=== PATIENT | male | born 1960 | race Caucasian/White ===

== ENCOUNTER 2019-06-08 13:42 | Inpatient (IN) | payer OTHER ==
[~2019-06-08] VITALS: Ht 177.8 cm; Wt 80.7 kg
[2019-06-08 13:43] VITALS: BP 149/83
[2019-06-08 14:19] LABS: ABSOLUTE NEUTROPHILS 12.9 thou/uL (1.4-8.2); BASOPHILS 0.2 % (0.0-2.0); EOSINOPHILS 1.3 % (0.0-3.0); HEMATOCRIT 32.9 % (42.0-52.0); HEMOGLOBIN 11.8 gm/dL (14.0-18.0); LYMPHOCYTES 5.9 % (24.0-44.0); MCH 31.5 pg (26.0-34.0); MCHC 35.8 g/dL (28.0-37.0); MCV 87.9 fL (80.0-100.0); MONOCYTES 6.8 % (1.0-8.0); PLATELET COUNT 187 thou/uL (150-400); POLYS 85.8 % (36.0-66.0); RBC 3.74 mil/uL (4.50-6.00)
[2019-06-08 14:27] LABS: CALCIUM 8.7 mg/dL (8.5-10.1); CREATININE 0.7 mg/dL (0.7-1.3); POTASSIUM 4.2 mmol/L (3.5-5.1)
[2019-06-08 14:33] LABS: ALBUMIN 2.7 g/dL (3.4-5.0); TOTAL BILIRUBIN 1.8 mg/dL (<0.1-1.0); TOTAL PROTEIN 8.1 g/dL (6.4-8.2)
[2019-06-08] MEDS ORDERED: LIPITOR10 MG PO (15:33)
[2019-06-08] MEDS ORDERED: LISINOPRIL20 MG PO (15:34)
[2019-06-08] MEDS ORDERED: GLIPIZIDE 10 MG10 MG PO (15:34)
[2019-06-08] MEDS ORDERED: INDERAL 20 MG T20 M1 PO (15:34)
[2019-06-08] MEDS ORDERED: LEVEMIR FL100 UNIT/2 SUBQ (15:35)
[2019-06-08] MEDS ORDERED: ASPIR 8181 MG PO (15:35)
[2019-06-08 15:41] LABS: CHOLESTEROL 105 mg/dL (<200); HDL CHOLESTEROL 40 mg/dL (>40); LDL CHOLESTEROL 53 mg/dL (<100); TC:HDL 2.6 Ratio (Not establshd); TRIGLYCERIDE 63 mg/dL (<150); VLDL 13 mg/dL (<40)
[2019-06-08 15:48] VITALS: BP 126/67
[2019-06-08 15:53] VITALS: BP 123/73
--- NOTE | 2019-06-08 16:03 | NUR ---
ROOM IS DIRTY; VERONICA TYSON, IS IN A ROOM GIVING MEDS; WILL CALL ME BACK FOR REPORT
--- NOTE | 2019-06-08 16:36 | NUR ---
ROOM CHANGED FROM 353 TO 218
[2019-06-08 17:35] VITALS: BP 98/50
--- NOTE | 2019-06-08 18:15 | NUR ---
ASSUMED CARE OF PT AT 1730 THIS SHIFT. PT HAS BEEN COOPERATIVE, HAS HAD SOME PAIN BUT MUCH BETTER AFTER RECIEVING PAIN PILL IN ER. PT IS A NEW ADMIT FROM ER, HERE FOR WORSENING DIABETIC ULCER ON LLE. PT HAS CONSULTS FOR ORTHOPEDIC SURGERY AND ENDOCRINOLOGY. PT IS CURRENTLY RESTING COMFORTABLY IN ROOM. PT HAS NO VISITORS, EDUCATION WAS PROVIDED. PLAN OF CARE IS TO MONITOR PT CLOSELY AT THIS TIME.
[2019-06-08 20:01] VITALS: BP 100/50
[2019-06-09 00:04] VITALS: BP 104/58
[2019-06-09 04:30] VITALS: BP 108/57
--- NOTE | 2019-06-09 04:36 | NUR ---
PT RESTING IN BED CURRENTLY. SR ON MONITOR. PT HAS BEEN NPO SINCE MIDNIGHT IN CASE SX SEES PT AND DECIDES TO TAKE HIM FOR SX TODAY ON LEFT 2ND TOE D/T DIABETIC ULCER. PT REMAINS ON RA. WILL HAVE ARTERIAL DOPPLER TODAY. PAIN HAS BEEN CONTROLLED TONIGHT WITH PAIN PILL. ABLE TO AMBULATE WITH MINIMAL DIFFICULTY.
[2019-06-09 07:46] LABS: URINE BILIRUBIN NEGATIVE (Negative); URINE BLOOD TRACE (Negative); URINE CLARITY CLEAR; URINE COLOR YELLOW; URINE GLUCOSE-RANDOM* NEGATIVE (Negative); URINE KETONES TRACE (Negative); URINE LEUKOCYTES-REFLEX NEGATIVE (Negative); URINE NITRITE-REFLEX NEGATIVE (Negative); URINE PROTEIN (DIPSTICK) TRACE (Negative)
[2019-06-09 08:04] VITALS: BP 126/63
--- NOTE | 2019-06-09 09:35 | NUR ---
REPORT RECEIVED FROM RN IN INTERVENTIONAL CARDIOLOGY. RECEIVED IN BED WITH IAN INTACT ACCOMPANIED BY RN AND 2 PATRICE. CHEST DISCOMFORT, DIZZINESS RESOLVED. SR-60'S.
[2019-06-09 13:31] VITALS: BP 132/74
--- NOTE | 2019-06-09 15:56 | NUR ---
L LOWER EXTREMITY RED, SWOLLEN, WARM, NUMBNESS WITH WOUND ON 2ND L TOE, ELEVATED ON PILLOW. DENIES PAIN. HEEL TOUCH WEIGHT BEARING WHEN AMBULATES TO BATHROOM WITH MINIMAL ASSIST. CALLED ORTHOPEDIC'S OFFICE TO CONFIRM CONSULT. REPORT GIVEN TO VERONICA NOLASCO. PT TRANSFERRING TO ROOM 432 MED/SURG PER WHEELCHAIR WITH VOLUNTEER ASSISTANCE.
--- NOTE | 2019-06-09 16:19 | NUR ---
volunteer present, pt transferring per wheelchair.
[2019-06-09 16:44] VITALS: BP 134/78
--- NOTE | 2019-06-09 19:26 | NUR ---
PT RECEIVED FROM CCU AT 1700 TO 432 ALERT AND IN NO ACUTE DISTRESS. PT SETTLED IN BED. LT LEG ELEVATED. NO C/O PAIN. IV INFUSING. DR. ONEAL CONSULTED TO SEE PT RE POSSIBLE AMPUTATION. EATING AND DRINKING WELL. VOIDING PER TOILET.
[2019-06-10 03:06] LABS: GLYCOHEMOGLOBIN (HGB A1C) 8.5 % (4.8-5.6)
[2019-06-10 05:45] VITALS: BP 120/57
--- NOTE | 2019-06-10 06:24 | NUR ---
Assumed pt care at 1900. Pt A/OX4,pleasant,VSS. Up with SBA/IV pole. Denies pain on assessment. saw pt at beginning of shift awaiting MRI results to proceed with POC on pt. consulted and saw pt as well,ordered wound cx of toe but wound is not draining it's open to air with maceration on the base of it and a blister on the posterior part. Pt was transferred to [facility]. Pt resting with no distress noted,calls approp. IVF infusing without problems.
[2019-06-10 09:00] VITALS: BP 129/72
--- NOTE | 2019-06-10 15:49 | NUR ---
Case opened to follow for dc planning. Pt is a&ox4 and indicates that his son lives with him. He has a close friend and neighbor Cecelia who is his emergency contact. He is considering making her his dpoa for health care. Document/info provided. The pt reports that he is on disability due his liver chrosis. He normally sees GI and [facility]ERT[facility] in the [facility]. He would like to find a doctor near here so that it is closer to home for him. He does drive and reports 4 steps into the house then everything is on level. MRI positive for osteo of his left toe. He is anticipating surgery for amputation tomorrow. He is indep with gait and adl's. Cm role introduced. Will follow along and reassess for dc planning needs postop.
[2019-06-10 16:37] VITALS: BP 106/46
[2019-06-10 19:06] VITALS: BP 126/66
--- NOTE | 2019-06-10 22:39 | NUR ---
PATIENT ALERT AND ORIENTED AND FAMILY AT BEDSIDE. PATIENT HAD MRI AND LATER SPOKE WITH SURGEON REGARDING SURGERY IN THE MORNING. PATIENT AGREED TO SURGERY ON FOOT AND STATED HE WOULD BE COMPLIANT WITH POC. NPO AT MIDNIGHT. SURGERY SCHEDULED AT 0730.
[2019-06-11 04:03] VITALS: BP 136/66
--- NOTE | 2019-06-11 05:06 | NUR ---
Assume dpt care at 1900. A/OX4,VSS. C/o pain on left foot,medicated per EMAR with relief reported. Pt aware of procedure today and consent signed. Pt has been NPO since midnight. IVF infusing without problems. Will continue to monitor pt.
--- NOTE | 2019-06-11 08:26 | HC ---
[facility] [address] CONSULTATION Name: ROEL GIPSON Room #: [facility] ADM IN M.R.#: [id number] Admission: 06/08/19 ������������������ Attend Phys: Rhett Capps Discharge: ������������������ Date of : 58 Report #: [id number] THIS REPORT FOR: //name// CC: JUS physician/PCP Rhett Capps DATE OF SERVICE: 06/10/2019 CHIEF COMPLAINT: Osteomyelitis, left second toe. HISTORY OF PRESENT ILLNESS: This 58-year-old gentleman with chronic diabetes and peripheral vascular disease has had problems with both feet for some time. He states he is being treated for diabetes and is on insulin, but only sees that physician once every 6 months. He has had progressive problems with a sore on the left second toe for some time. This has become more severe and he now presents with evidence of osteomyelitis and a draining wound. Clinical exam and MRI study confirm evidence of osteomyelitis involving the second toe, extending down possibly to the metatarsal head. There is evidence of reactive osteitis of the adjacent first and third digits as well. The MRI does not reveal evidence of an abscess nor significant fluid collection. At the time of my evaluation, he is a poor historian and clearly has not taken good care of his feet in the past. He does seem to understand the situation and we have had a thorough and lengthy discussion both last evening and again today. He denies any other areas of significant discomfort. The left foot is somewhat red and slightly boggy, consistent with some chronic vascular dysfunction. He has poor pulses. The third toe demonstrates a slightly draining ulcer at the tip with some generalized edema consistent with chronic infection. The first and third toes are slightly edematous, but without clear evidence of infection. The skin is slightly macerated between the digits. There is no evidence of abscess or significant fluid collection. Sensation is adequate. X-rays and MRI study of the left foot reveal evidence of osteomyelitis involving the second toe. The MRI suggests some involvement back to the metatarsal head. There is no fluid collection. There is no evidence of clear osteomyelitis or bony destruction in other digits. IMPRESSION: Severe peripheral vascular disease and diabetes with osteomyelitis, left second toe. I have explained to the patient very directly that I am concerned that he may have difficulty healing this given his poor metabolic state and his poor compliance with medical management in the past. I think amputation at the base of the second toe has a possibility of healing, but there is certainly no guarantee. Therefore, I have discussed with him the option of a mid foot amputation or even eventual below-knee amputation. He states he understands, but prefers to preserve as much of the foot as possible. He appreciates that he may not succeed in healing at this level, but would like to try an amputation involving the second digit only at this point. He understands that he will probably require ongoing antibiotics and wound care for the coming [address] [address] CONSULTATION Name: ROEL GIPSON Room #: 417-I ADM IN M.R.#: [id number] Admission: 06/08/19 ������������������ Attend Phys: Rhett Capps Discharge: ������������������ Date of : 58 Report #: [id number] month or two in an effort to get this to heal. If it fails, then he will probably need to reconsider the option of either mid foot or below-knee amputation level. He states he understands this very well, but at this point refuses mid foot or below-knee amputation level and wants to proceed with amputation of the left second toe only. We will plan to proceed with that tomorrow if OR scheduling will allow. ��������������������������������������������� <ELECTRONICALLY SIGNED> ���������������������������������������� By: Fercho Guerra MD ��������������������������������������������� 06/11/19 0826 1729 0259 Fercho Guerra MD /nt
--- NOTE | 2019-06-11 08:26 | O ---
[facility] [place] [address] OPERATIVE REPORT Name: ROEL GIPSON [facility].R.[facility] [id number] Admission: 06/08/19 ������������������ Attend Phys: Rhett Capps Discharge: ������������������ Date of : 58 Report #: [id number] THIS REPORT FOR: //name// CC: FAM physician/PCP Rhett Capps DATE OF SERVICE: 06/11/2019 PREOPERATIVE DIAGNOSIS: Infected left second toe. POSTOPERATIVE DIAGNOSIS: Infected left second toe. PROCEDURE: Amputation of left second toe. SURGEON: Fercho Guerra MD INDICATIONS: This 58-year-old gentleman has diabetes and peripheral vascular disease. He has developed edema, cellulitis and infected left second toe. We have discussed that his edema and some generalized cellulitis may make healing at the forefoot level difficult. We have discussed possible mid foot or even below-knee amputation. At this point, however, his MRI does not show an abscess in the foot and he would prefer to preserve as much of the foot as possible. We have elected to go ahead with amputation of the second toe at the distal metatarsal level. DESCRIPTION OF PROCEDURE: The patient was taken to the operating room where he was placed under general anesthesia. He has been continued on his previous antibiotics. The left foot was meticulously prepped and draped. An Esmarch bandage was used as a gentle tourniquet. A racquet shaped skin incision was made involving the base of the second toe, preserving as much skin and soft tissue as possible. This was carried sharply down to bone and a subperiosteal dissection was performed back to the MP joint. The toe was amputated at that level. There was evidence of some fluid and purulence at the MP joint and his previous MRI suggested involvement with osteomyelitis at the metatarsal head. The bony dissection was carried back another 2 cm to the mid metatarsal where it was transected sharply and removed as well. The surrounding soft tissues were debrided of any necrotic appearing tissue. Wound was copiously irrigated. There seems to be satisfactory local blood supply. I considered a very loose wound closure, but felt the better approach is probably to pack this wound open and allow wound care to manage over the coming week or two, probably with secondary or late closure of the wound. A sterile dressing was applied. The [address] [address] OPERATIVE REPORT Name: GIPSON,ROEL Room #: 417-I ADM IN M.R.#: [id number] Admission: 06/08/19 ������������������ Attend Phys: Rhett Capps Discharge: ������������������ Date of : 58 Report #: [id number] patient was then awakened and returned to recovery room in satisfactory condition. ��������������������������������������������� <ELECTRONICALLY SIGNED> ���������������������������������������� By: Fercho Guerra MD ��������������������������������������������� 06/11/19 0826 0809 0822 Fercho Guerra MD /nt
[2019-06-11 09:36] VITALS: BP 127/66
[2019-06-11 10:00] VITALS: BP 132/70
[2019-06-11 10:10] LABS: ABSOLUTE NEUTROPHILS 7.7 thou/uL (1.4-8.2); BASOPHILS 0.3 % (0.0-2.0); EOSINOPHILS 1.9 % (0.0-3.0); HEMATOCRIT 31.1 % (42.0-52.0); HEMOGLOBIN 10.9 gm/dL (14.0-18.0); LYMPHOCYTES 6.2 % (24.0-44.0); MCH 31.6 pg (26.0-34.0); MCV 90.3 fL (80.0-100.0); MONOCYTES 3.7 % (1.0-8.0); PLATELET COUNT 178 thou/uL (150-400); POLYS 87.9 % (36.0-66.0); RBC 3.44 mil/uL (4.50-6.00); RDW 14.2 % (10.5-14.5); WBC 8.8 thou/uL (4.0-11.0)
[2019-06-11 10:29] LABS: CALCIUM 8.1 mg/dL (8.5-10.1); CREATININE 0.7 mg/dL (0.7-1.3); POTASSIUM 3.9 mmol/L (3.5-5.1)
[2019-06-11 11:00] VITALS: BP 130/69
--- NOTE | 2019-06-11 12:06 | HC ---
[facility] [place] [address] [place] [address] CONSULTATION Name: ROEL GIPSON Room #: [facility] ADM IN M.R.#: [id number] Admission: 06/08/19 ������������������ Attend Phys: Rhett Capps Discharge: ������������������ Date of : 58 Report #: [id number] THIS REPORT FOR: //name// CC: FAM physician/PCP Rhett Capps DATE OF SERVICE: 06/09/2019 CONSULTING PHYSICIAN: Dr. Capps. REASON FOR CONSULTATION: Uncontrolled type 2 diabetes mellitus. HISTORY OF PRESENT ILLNESS: This is a 58-year-old male patient whose medical background is significant for type 2 diabetes mellitus, hypertension, hyperlipidemia. He notes that he has been diagnosed with type 2 diabetes mellitus, nearly 20 years ago. He is currently on a combination of Levemir insulin 40 units q.p.m. as well as glipizide 10 mg daily. He notes that his blood glucose values range between 120 and 150 mg/dL in the fasting state, but he does not check it in the postprandial state. He has not had significant issues with hypoglycemia. The patient is not aware of complications pertaining to diabetic retinopathy, diabetic neuropathy, diabetic nephropathy, or coronary artery disease. The patient presented here with progressive difficulties involving a left second toe swelling, redness, pain and was admitted for further management of what was diagnosed as a left foot cellulitis, primarily involving the second toe. Otherwise, the patient has hypertension, hyperlipidemia and is in on active medical therapy for both. REVIEW OF SYSTEMS: CONSTITUTIONAL: Intermittent issues with fatigue, tiredness, but not weight changes or fever. PULMONARY: No shortness of breath, cough or hemoptysis. CARDIAC: Occasional palpitations, dyspnea on exertion, but no chest pain, syncope or presyncope. HEENT: Negative for earache, ear drainage, sinus pain. SKIN: Negative for rash, ulceration other than the left second toe redness, swelling and pain. NEUROLOGY: Negative for loss of consciousness, headaches or seizure activity. PSYCHIATRIC: Negative for hallucinations, delusions. GASTROINTESTINAL: Negative for abdominal pain, nausea, vomiting or changes in bowel movement frequency. Otherwise, his review of systems is noncontributory other than those mentioned in HPI. [facility] [address] [place] [address] CONSULTATION Name: ROEL GIPSON Room #: 417-I [facility] IN M.R.#: [id number] Admission: 06/08/19 ������������������ Attend Phys: Rhett Capps Discharge: ������������������ Date of : 58 Report #: [id number] PAST MEDICAL HISTORY: 1. Type 2 diabetes mellitus. 2. Hypertension. 3. Hyperlipidemia. 4. Left foot cellulitis. 5. Liver cirrhosis. 6. History of hepatitis C. ACTIVE MEDICATIONS: Levemir insulin 40 units q.p.m., glipizide 10 mg b.i.d., aspirin 81 mg daily, lisinopril 20 mg daily, propranolol 20 mg b.i.d. and atorvastatin 10 mg daily. ALLERGIES: No known drug allergies. PAST SURGICAL HISTORY: Unremarkable. FAMILY HISTORY: Noted for hypertension. SOCIAL HISTORY: He is not . He has one son. He is on disability due to cirrhosis. Denies use of tobacco or alcohol. PHYSICAL EXAMINATION: GENERAL: Pleasant middle-aged male patient who is not in apparent pain or distress. VITAL SIGNS: Blood pressure is 126/63 mmHg, heart rate is 89 beats per minute, respirations 16 per minute, temperature 36.7 degrees. CONSTITUTIONAL: Comfortable, not in apparent distress. HEENT: Anicteric sclerae. Intact extraocular motions. NECK: Supple. No JVD, carotid bruits or lymphadenopathy. I do not appreciate thyromegaly. CHEST: Clear to auscultation with good air entry bilaterally. Scattered rales, but no wheezes. CARDIOVASCULAR: Regular rate and rhythm without murmurs or gallops. ABDOMEN: Slightly distended, but soft, nontender, no guarding, no organomegaly. Active bowel sounds. EXTREMITIES: Lowe extremity examination is negative for ankle edema, but is noted for extensive necrotic hyperemic changes involving the left second toe. No active discharge is noted. Pedal pulses are faint over both feet. SKIN: Noted for ulcerative changes involving the left second toe as noted above. NEUROLOGIC: Awake, alert and oriented to time, place and person. The remainder of examination is nonfocal. PSYCHIATRIC: Pleasant, interactive, appropriate. Normal mood and affect. LABORATORY DATA: Blood glucose values since arrival have ranged between 180 and 230 mg/dL. Otherwise, sodium 131, potassium 4.2, chloride 96, CO2 of 24, anion [address] [address] CONSULTATION Name: ROEL GIPSON Room #: 417-I ADM IN M.R.#: [id number] Admission: 06/08/19 ������������������ Attend Phys: Rhett Capps Discharge: ������������������ Date of : 58 Report #: [id number] gap 11, BUN 11, creatinine 0.7, AST 44, total bilirubin 1.8, calcium 8.7, alkaline phosphatase 183, ALT 41, total protein 8.1, albumin 2.7, GFR 115, lactic acid 2.0. Total cholesterol 105, triglycerides 63, HDL 40, LDL 53. White blood count 15, hemoglobin 11.8, hematocrit 32.9, platelets 187. TSH 2.332. Hemoglobin A1c was ordered and is pending. ASSESSMENT AND PLAN: Type 2 diabetes mellitus, uncontrolled. As noted above, the patient has had a longstanding history of type 2 diabetes mellitus and although he states no complications, the occurrence of left foot wound and infection speak to the possibility of peripheral vascular disease. I counseled the patient on the importance of adequate glycemic control in the inpatient than outpatient setting to avoid future complications and to speed up the recovery from the current episode, which he seems to understand well. Currently, the patient is on coverage with Humalog supplemental scale as well as blood glucose monitoring a.c. and at bedtime and glipizide 10 mg q.a.m. I will go ahead and resume coverage with long-acting insulin, but I will do so slowly and cautiously given the patient's hospitalized state in the form of providing Lantus insulin at a dose of 14 units q.p.m. and I will maintain the rest of his regimen unchanged. Further changes will be made according to his accumulating blood glucose data as well as his pending hemoglobin A1c. Hypertension. The patient's level of blood pressure control is adequate on current lisinopril regimen. He is to continue with that. Hyperlipidemia. The patient's lipid control is excellent on the current atorvastatin therapy, he is to continue with that. I certainly appreciate this consultation by Dr. Capps. ��������������������������������������������� <ELECTRONICALLY SIGNED> ���������������������������������������� By: Cameron Alejandre MD ��������������������������������������������� 06/11/19 1206 0958 1054 Cameron Alejandre MD /nt
[2019-06-11 15:47] VITALS: BP 136/72
--- NOTE | 2019-06-11 18:30 | NUR ---
PT IN SURGERY AT START OF SHIFT. RETURNED TO ROOM AT O920. LT FOOT BUMPER DSNG INTACT. SOME BLOODY DRAINAGE NOTED ATFTER PT SAT ON SIDE OF BED TO EAT LUNCH. INSTRUCTED PT NOT TO DANGLE BUT KEEP ELEVATED SO NOT TO HAVE FURTHER BLEEDING. EATING AND DRINKING WELL. ACCUCKS HIGH. SEE MED SHEET. NO C/O PAIN.
[2019-06-11 20:15] VITALS: BP 122/66
[2019-06-12 00:33] VITALS: BP 114/67
--- NOTE | 2019-06-12 02:40 | NUR ---
PATIENT ALERT AND ORIENTED X4. DENIES PAIN. DRESSING ON L FOOT INTACT. SCANT AMOUNT OF DRIED BLOOD ON DRESSING WHERE TOE WAS AMPUTATED. IV PATENT. SLEPT MOST OF NIGHT. ACCUCHECK WAS 332, RECEIVED 16 UNITS LISPRO INSULIN.
[2019-06-12 04:45] VITALS: BP 132/74
[2019-06-12 05:33] LABS: CREATININE 0.8 mg/dL (0.7-1.3); POTASSIUM 3.8 mmol/L (3.5-5.1)
[2019-06-12 05:47] LABS: HEMATOCRIT 28.7 % (42.0-52.0); HEMOGLOBIN 10.2 gm/dL (14.0-18.0); MCH 31.9 pg (26.0-34.0); MCHC 35.6 g/dL (28.0-37.0); MCV 89.6 fL (80.0-100.0); RBC 3.2 mil/uL (4.50-6.00); RDW 14.2 % (10.5-14.5); WBC 9.2 thou/uL (4.0-11.0)
[2019-06-12 08:00] VITALS: BP 131/69
--- NOTE | 2019-06-12 08:48 | NUR ---
PATIENT RESTING IN BED. STATES NO PAIN AT PRESENT. GAVE AM MEDS. AND INSULIN ORDERED.
--- NOTE | 2019-06-12 09:03 | HC ---
[facility] [place] [address] CONSULTATION Name: ROEL GIPSON Room #: [facility] ADM IN .R.#: [id number] Admission: 06/08/19 ������������������ Attend Phys: Rhett Capps Discharge: ������������������ Date of : 58 Report #: [id number] THIS REPORT FOR: //name// CC: FAM physician/PCP Rhett Capps DATE OF SERVICE: 06/11/2019 CHIEF COMPLAINT: Left second toe amputation site. HISTORY OF PRESENT ILLNESS: This is a 58-year-old male patient who was admitted to the hospital on 06/08/2019, after coming to the Emergency Department with pain, swelling and ulceration of his left foot. He was noted to have osteomyelitis of the second digit and metatarsal head and has subsequently undergone a surgical resection of the second toe and a portion of the metatarsal by Dr. Fercho Guerra, and Dr. Guerra has asked that I see him for postoperative wound care going forward. PAST MEDICAL HISTORY: Positive for history of diabetes mellitus as well as hepatic cirrhosis. SOCIAL HISTORY: Negative for alcohol or tobacco use per his record. MEDICATIONS: Include Lipitor, Inderal, Zestril, Levemir, Glucotrol and aspirin. ALLERGIES: No known drug allergies. FAMILY HISTORY: Noncontributory. REVIEW OF SYSTEMS: CONSTITUTIONAL: The patient denies fever, chills or weight loss. NEUROLOGICAL: The patient denies focal weakness, numbness or tingling. EYES: The patient denies visual changes, redness or drainage. ENT: The patient denies earache, nasal drainage or sore throat. CARDIOVASCULAR: The patient denies chest pain, palpitations or diaphoresis. PULMONARY: The patient denies cough or shortness of breath. GASTROINTESTINAL: The patient denies nausea, vomiting, diarrhea or abdominal pain. ORTHOPEDIC: The patient is aware of the foot surgical wound. He denies significant pain associated with that. Other systems in a 14-point review of systems are negative. PHYSICAL EXAMINATION: VITAL SIGNS: At this time include temperature 36.5, pulse 71, respiratory rate 18, blood pressure 136/72. GENERAL: This is a chronically ill-appearing male patient who appears to be in [address] [address] CONSULTATION Name: ROEL GIPSON Room #: 417-I ADM IN .R.#: [id number] Admission: 06/08/19 ������������������ Attend Phys: Rhett Capps Discharge: ������������������ Date of : 58 Report #: [id number] minimal distress. HEENT: Head normocephalic. Nose and throat clear. NECK: Supple. LUNGS: Clear. ABDOMEN: Slightly distended, nontender. EXTREMITIES: Lower extremities demonstrate what appear to be diminished distal pulses. He has a surgically absent second toe with a surgical wound in the interdigital webspace packed with Betadine-soaked gauze. The packing is left in place at this time as he is immediately postop. NEUROLOGIC: The patient is alert and oriented. LABORATORY STUDIES: Include white blood cell count 8.8, which is down from 15.0 on admission with a hemoglobin of 10.9, hematocrit of 31.1, platelet count 178,000. Sodium 135, potassium 3.9, chloride 104, CO2 of 21, BUN 10, creatinine 0.7, glucose elevated at 222. CLINICAL IMPRESSION: 1. Diabetic foot ulceration, Melgoza grade 3, with underlying osteomyelitis of the left second toe. Now, status post surgical amputation of the second toe and resection of the metatarsal head. 2. Surgical wound to the ____ foot following surgical removal of the second toe. 3. Type 2 diabetes mellitus. Uncontrolled with a baseline hemoglobin A1c of 8.5%. 4. Hypertension. 5. Hyperlipidemia. 6. Osteomyelitis, left second toe, now status post surgical excision of infected bone. RECOMMENDATIONS: At this point in time, we will leave the surgical packing in place today. Likely start with either a silver alginate dressing or a moist gauze dressing beginning tomorrow. Recommend continuation of empiric antibiotic therapy, pending cultures. He is being seen by Endocrinology for management of his hyperglycemia. He was felt by the surgeon to have adequate vascularity clinically at the time of surgery. Arterial Doppler failed to demonstrate any hemodynamically significant stenoses. I appreciate being asked to see the patient in consultation. ��������������������������������������������� <ELECTRONICALLY SIGNED> ���������������������������������������� By: Sanjiv Witt MD ��������������������������������������������� 06/12/19 0903 1555 0117 Sanjiv Witt MD /nt
--- NOTE | 2019-06-12 14:39 | NUR ---
TX TO LEFT 2ND TOE WITH DAKINS ORDERED. DR ESCOTO HERE ON UNIT AND LOOKED AT WHEN IT WAS UNWRAPPED. PT UP IN BEDSIDE CHAIR AND BED STRIPPED AND REMADE.
--- NOTE | 2019-06-12 14:49 | HC ---
[facility] [place] [address] CONSULTATION Name: ROEL GIPSON Room #: [facility] ADM IN M.R.#: [id number] Admission: 06/08/19 ������������������ Attend Phys: Rhett Capps Discharge: ������������������ Date of : 58 Report #: [id number] THIS REPORT FOR: //name// CC: JUS physician/PCP Rhett Capps DATE OF SERVICE: 06/09/2019 INFECTIOUS DISEASE CONSULTATION REASON FOR CONSULTATION: Evaluate left second toe diabetic foot infection. HISTORY OF PRESENT ILLNESS: The patient is a 58-year-old, longstanding diabetic with peripheral neuropathy, hypertension, who is on insulin and glipizide. About a month ago, noticed an ulceration on the distal aspect of his second left toe, treated at [facility]. He did show signs of improvement and finished his course of antibiotics several weeks ago. He then developed increased swelling and redness of his foot. No documented fever. He does have some pain in the foot. He has had no specific trauma, although, he does have peripheral neuropathy. He did not lose his toenail. No other foot issues have occurred. The patient does have underlying hepatitis C and cirrhosis. He does have esophageal varices. He has ascites. He has been managed at [facility]. His hepatitis C has been treated. Following his admission, he had ultrasound of the lower extremity arterials, which was without high-grade stenosis. REVIEW OF SYSTEMS: Denies any cardiopulmonary, GI or issues. Full 10-point review was negative other than what is described above. PAST MEDICAL HISTORY: Diabetes, hypertension, hyperlipidemia, cirrhosis, hepatitis C. ALLERGIES: None known. MEDICATIONS: As noted on his MAR, which were reviewed including vancomycin and Zosyn. FAMILY HISTORY: Hypertension. SOCIAL HISTORY: He is single, on disability, nonsmoker. No significant alcohol intake. PHYSICAL EXAMINATION: VITAL SIGNS: He is afebrile and hemodynamically stable. GENERAL: He is alert and cooperative and pleasant, in no acute distress. SKIN: With venous stasis dermatitis changes anterior legs bilaterally. He had [facility] [address] [place] [address] CONSULTATION Name: GIPSONROEL Room #: [facility] ADM IN M.R.#: [id number] Admission: 06/08/19 ������������������ Attend Phys: Rhett Capps Discharge: ������������������ Date of : 58 Report #: [id number] ulceration at the distal aspect of his left second toe with purulent drainage. Sausage deformity. Erythema extended up his forefoot with blistering to the plantar aspect of the base of his toe and forefoot. There was 2+ edema in the foot. Pulses were diminished, but palpable. He had a left groin node palpable. No other palpable adenopathy. EYES: Without scleral icterus. MOUTH: Without mucositis. NECK: Supple. LUNGS: Clear. HEART: Regular, without murmur, gallop or rub. ABDOMEN: With small amount of ascites. No definite hepatosplenomegaly identified. No other masses. GENITOURINARY: External genitalia without lesion. EXTREMITIES: Pulses in the femoral region were normal. Popliteal pulses normal. NEUROLOGIC: Cranial nerves intact. Strength in his upper and lower extremities is normal and symmetric. Mood was normal with no anxiety or depression. LABORATORY STUDIES: Arterial studies as noted above. X-ray showed osteomyelitis of the distal phalanx tuft. Blood cultures are negative to date. Urinalysis unremarkable. Creatinine 0.7, bilirubin 1.8, alkaline phosphatase 183, ALT 41. Hemoglobin 11.8, WBC 15, and platelet 187,000. IMPRESSION: 1. A 58-year-old diabetic with diabetic neuropathic ulcer over the distal aspect of his left second toe with secondary soft tissue infection and osteomyelitis. Underlying peripheral neuropathy due to his diabetes with no large vessel obstruction seen on ultrasound. 2. Osteomyelitis of the distal phalanx. He has gangrene changes that extend up to the distal forefoot. RECOMMENDATIONS: We will continue broad antibiotic coverage. Await cultures at the time of surgery. The patient will require amputation. Orthopedic Surgery has been consulted. We will continue antibiotic support. Culture of the distal phalanx and adjust antibiotics accordingly. ��������������������������������������������� <ELECTRONICALLY SIGNED> ���������������������������������������� By: Kan Berrios MD ��������������������������������������������� 06/12/19 1449 [id number] Kan Berrios MD /nt
[2019-06-12 15:35] VITALS: BP 131/69
--- NOTE | 2019-06-12 15:37 | NUR ---
CARE TEAM INDICATED THAT PT MAY BE MEDICALLY STABLE TO DC OVER THE WEEKEND SATURDAY OR SATURDAY. REFERRAL HAD BEEN SENT TO [facility] FOR PT, OT, AND NURSING (WOUND CARE). FAX ORDERS TO CALL . CM TO FOLLOW INDICATED WITH DC PLANNING.
[2019-06-12 16:20] VITALS: BP 135/83
[2019-06-12 19:50] VITALS: BP 125/68
--- NOTE | 2019-06-12 20:03 | NUR ---
GAVE SCED LANTUS INSULIN AND GAVE SNACK
--- NOTE | 2019-06-13 03:14 | NUR ---
PATIENT ALERT AND ORIENTED X4. DRESSING CHANGED ON L FOOT. WOUND HAS GOOD GRANULATION TISSUE. ACCUCHECK WAS 122, NO INSULIN COVERAGE. UP TO BATHROOM BY SELF, HAS STEADY GATE. DENIES PAIN.SLEPT MOST OF NIGHT.
[2019-06-13 04:00] VITALS: BP 144/50
[2019-06-13 06:29] LABS: HEMATOCRIT 31.4 % (42.0-52.0); MCH 31.5 pg (26.0-34.0); MCV 90.2 fL (80.0-100.0); RBC 3.48 mil/uL (4.50-6.00); RDW 14.5 % (10.5-14.5); WBC 7.6 thou/uL (4.0-11.0)
[2019-06-13 06:42] LABS: CALCIUM 8.1 mg/dL (8.5-10.1); CREATININE 0.8 mg/dL (0.7-1.3); POTASSIUM 3.7 mmol/L (3.5-5.1)
[2019-06-13 07:44] VITALS: BP 144/75
[2019-06-13 16:41] VITALS: BP 121/65
--- NOTE | 2019-06-13 19:20 | NUR ---
PT ALERT XS [address] ADLS[address] MOSS HERE AND ORDERED US OF ABD AND TESTICLES TO BE DONE 06/14/19 NPO AT MIDNIGHT. BLOOD SUGARS MONITORED AND S/S ORDERED. SEE NEW ORDERS. PT PLEASANT AND COOPERATIVE WITH CARE.
[2019-06-13 21:20] VITALS: BP 152/90
--- NOTE | 2019-06-14 03:04 | NUR ---
ASSESSMENT COMPLETED.PT DENIED PAIN SO FAR.UP ADLIB IN ROOM.DRSG ON HIS TOE COMPLETED.PT'S ABD DISTENDED AND FIRM,SCROTUM STILL SWOLLEN.PT NPO AT THIS TIME FOR A PROCEDURE IN THE AM.URINAL AT BEDSIDE WITH GOOD OUTPUT.PT RESTING ON HIS BED AT THIS TIME.PT CONT ON IVF AND IV ABX.CALL LIGHT WITHIN REACH.
[2019-06-14 03:55] VITALS: BP 139/79
[2019-06-14 05:31] LABS: CALCIUM 8.2 mg/dL (8.5-10.1); CREATININE 0.8 mg/dL (0.7-1.3); MAGNESIUM 1.7 mg/dL (1.8-2.4); POTASSIUM 3.7 mmol/L (3.5-5.1); TOTAL BILIRUBIN 0.8 mg/dL (<0.1-1.0); TOTAL PROTEIN 6.9 g/dL (6.4-8.2)
[2019-06-14 07:30] VITALS: BP 134/72
--- NOTE | 2019-06-14 11:04 | NUR ---
PT UP IN BEDSIDE CHAIR BROTHER HERE TO VISIT. PT SELF CARE WITH ADLS. BLOOD SUGARS MONITORED AND S/S INSULIN GIVEN ORDERED. PT W/O PAIN OR RESP DISTRESS.
--- NOTE | 2019-06-14 14:38 | NUR ---
DR ADKINS HERE AND CHANGED DRESSING WITH THIS NURSES ASSISTANCE. PT W/O PAIN OR RESP DISTRESS. PT WATCHING TV.
[2019-06-14 19:12] VITALS: BP 130/80
--- NOTE | 2019-06-15 03:13 | NUR ---
PT AMBULATING TO BATHROOM INDEPENDENTLY AND IS TOLERATING WELL. DENIES PAIN. POSSIBLE DISCHARGE HOME 06/16. RESTING COMFORTABLY. NO NEEDS VOICED. CALL LIGHT WITHIN REACH. WILL CONTINUE TO PROVIDE FREQUENT OBSERVATION.
[2019-06-15 05:40] VITALS: BP 138/88
[2019-06-15 07:10] VITALS: BP 123/65
--- NOTE | 2019-06-15 14:13 | NUR ---
CARE TEAM INDICATED THAT PT IS TO HAVE THORACENTESIS TODAY. CM FOLLOWING REGARDING DC PLANNING.
[2019-06-15 16:16] LABS: CLARITY SL CLOUDY; COLOR YELLOW; SOURCE ABDOMINAL; TOTAL VOLUME 51 mL
[2019-06-15 16:17] LABS: BF NUCLEATED CELLS 244; BF RBC 75
[2019-06-15 16:27] VITALS: BP 137/74
--- NOTE | 2019-06-15 17:06 | PATH ---
[facility] [place] [address] PATHOLOGY RPT PROCEDURE Name: ROEL GIPSON Room #: 417-I ADM IN M.R.#: [id number] ������������������ Admission: 06/08/19 ������������������ Date of : 58 Discharge: Report #: [id number] Path Case #: [id number] [facility] Accession Number: [id number] . 01 Material submitted: . toe - LEFT SECOND TOE. Modifiers: left, second . 01 Clinical history: . Osteomyelitis . 02 Diagnosis: Toe, left second toe, amputation: - Skin and subcutaneous tissue with marked acute inflammation. - Acute osteomyelitis involving the bone. - Focal acute inflammation present at surgical margin as well as the additional fragment of bone received. (IUV:commercial account officer; 06/15/2019) MBR/06/15/2019 . 02 Comment: Please correlate clinically with intraoperative findings for adequate surgical margins of the bone. (IUV:commercial account officer; 06/15/2019) . 02 Electronically signed: . Amita Hdz MD, Pathologist NPI- [id number] . 01 Gross description: . The specimen is received in formalin, labeled "Roel Gipson, left second toe". Received is an amputated digit measuring 5.7 x 2.8 x 2.5 cm in greatest dimensions. The bone margin is smooth and concave, consistent with disarticulation. The bone and soft tissue margins are inked black. The nail is absent. The distal aspect of the specimen displays a poorly circumscribed, irregular in contour, focally crusted and appiah-brown lesion measuring 2.0 x 1.6 cm, which is 2.8 cm from the closest skin margin. On the plantar aspect, at the skin margin, there is a second lesion which is well-circumscribed, raised, verrucoid and light appiah measuring 1.0 x 1.0 x 0.4 cm. Remainder of the epidermal surface is pale appiah and flaky in appearance. A full-thickness longitudinal cross-section is submitted in cassettes A1 through A4, following decalcification. . Also received within the specimen container is an additional segment of bone measuring 2.3 x 2.0 x 1.4 cm in greatest dimensions. One bone margin is smooth and convex, consistent with disarticulation, and the opposite margin is jagged in appearance. The jagged margin is inked black. A full thickness cross-section is submitted in cassette A5, following [address] [address] PATHOLOGY RPT PROCEDURE Name: ROEL GIPSON Room #: 417-I ADM IN M.R.#: [id number] ������������������ Admission: 06/08/19 ������������������ Date of : 58 Discharge: Report #: [id number] Path Case #: [id number] decalcification. (CAA; 06/12/2019) QAC/QAC . 02 Pathologist provided ICD-10: L98.9, M86.172 . 02 CPT . 402414, 842442 Specimen Comment: A courtesy copy of this report has been sent to Specimen Comment: [phone], . Specimen Comment: Report sent to / DR WILHELM Performed at: [address], [place] [id number] MD Kaushik Alcala MD Phone: [phone] Performed at: [address] [id number] MD Amita Hdz MD Phone: [phone]
--- NOTE | 2019-06-15 17:28 | NUR ---
Assumed care at 7 am. Client alert and oriented x 4. Mood calm and cooperative. Patient up ad jamari, bearing weight on operated foot. Patient doesn't report any pain. Patient's goal is to be discharged home. Distended, hard abdomen and jaundiced skin. Client has a history of hypertension. After lunch the client completed a paracentesis and 4.5 liters were taken off and sent to the lab for testing. Patient currently resting without verbal complaint. Will continue to monitor.
[2019-06-15 17:31] LABS: BF NEUTROPHILS 6
[2019-06-15 17:32] LABS: BF MACROPHAGE 63
[2019-06-15 19:13] VITALS: BP 141/70
--- NOTE | 2019-06-16 03:16 | NUR ---
PT IS ALERT AND ORIENTED. HE GETS UP AD LUTHER AT IN ROOM. HE DENIES PAIN. DRSG TO LEFT FOOT IS C/D/I. ON ROOM AIR. ABDOMEN DISTENDED, PT DENIES ANY SOA.EDEMA TO BLE.NO FURTHER CONCERNS AT THIS TIME.
[2019-06-16 05:28] VITALS: BP 158/75
[2019-06-16 07:30] VITALS: BP 131/64
[2019-06-16 08:55] LABS: SOURCE ABDOMINAL
--- NOTE | 2019-06-16 11:05 | NUR ---
Followup: treatment continues to diabetic toe wound/osteo. Eating 100% of meals consistently, no further supplementation needed. Has had abdominal ascites due to hepatic cirrhosis, required paracentesis with removal of 4.5 L fluid. Change nutrition status to low risk.
--- NOTE | 2019-06-16 11:41 | NUR ---
Assumed pt care at 7am.Pt in bed very anxious about dc home today.Assessment completed.vss.insulin given ac meals and am meds given as ordered and well tolerated.Dr Berrios and Maria Del Carmen here,no new order noted.Drsg change done to left foot as ordered.Pt up in chair resting.Will continue to monitor.
[2019-06-16] MEDS ORDERED: AMBIEN 5 MG TABL5 M1 PO (13:58)
[2019-06-16] MEDS ORDERED: LANTUS100 UNIT/M SUBQ (13:58)
[2019-06-16] MEDS ORDERED: HYDROCODON-ACE1 EAC7 PO (13:58)
[2019-06-16] MEDS ORDERED: ACETAMINOPHEN325 M1 PO (13:58)
[2019-06-16] MEDS ORDERED: GLUCOPHAGE XR750 MG PO (13:58)
[2019-06-16] MEDS ORDERED: GLIPIZIDE 5 MG T5 MG PO (13:58)
[2019-06-16] MEDS ORDERED: LEVAQUIN 750 M750 MG PO (13:58)
[2019-06-16] MEDS ORDERED: NOVOLOG100 UNIT/1 SUBQ (13:58)
[2019-06-16 14:07] LABS: BODY FLUID ALBUMIN 0.4 g/dL (()); BODY FLUID AMYLASE 15 U/L (()); BODY FLUID GLUCOSE 183 mg/dL (()); BODY FLUID LDH 49 IU/L (())
[2019-06-16] MEDS ORDERED: KLOR-CON 1010 MEQ PO (14:07)
[2019-06-16] MEDS ORDERED: LASIX 20 MG TAB20 MG PO (14:07)
[2019-06-16 15:11] VITALS: BP 129/71
[2019-06-16 15:26] VITALS: BP 131/69
--- NOTE | 2019-06-16 15:37 | NUR ---
patient dc today, dp sent dc paperwork to [facility]
[2019-06-16 17:01] VITALS: BP 131/69
--- NOTE | 2019-06-18 09:07 | PATH ---
[facility] [address] [place] [address] PATHOLOGY RPT PROCEDURE Name: ROEL GIPSON Room #: [address] [place] [address] IN .R.#: [id number] ������������������ Admission: 06/08/19 ������������������ Date of : 58 Discharge: 06/16/19 Report #: [id number] Path Case #: [id number] Note LCA Accession Number: [id number] TESTS RESULT FLAG UNITS REF RANGE LAB Clinician Provided Cytology Information No. of containers..01 Other (Miscellaneous) Source: ABDOMINAL FLUID DIAGNOSIS: 02 ABDOMINAL FLUID NEGATIVE FOR MALIGNANT CELLS. MESOTHELIAL CELLS ARE PRESENT. THIS INTERPRETATION INCLUDES EVALUATION OF A CELL BLOCK. Pathologist ICD10: 02 R79.89 Signed out by: 02 Amita Hdz MD, Pathologist NPI- [id number] Performed by: Gilma Kong [employer]er ([facility]) Gross description: 01 10ML, YELLOW, CLEAR /LCS 10/06/1840 0000 Local FLAG LEGEND: L-Low Normal,H-High Normal,LL-Alert Low,HH-Alert High <-Panic Low,>-Panic High,A-Abnormal,AA-Critical Abnormal Performed at: [address] [place] [address] Kaushik Alcala MD, [address] [address] Amita Hdz MD, Performed at: [address], [place], [place] [id number] MD Kaushik Alcala MD Phone: [phone]
== END 2019-06-16 19:06 | disposition home health service (06) | DRG 853 ==
LOC: ER 13:42 → EROBS 15:10 → 2N 15:10 → 4E 15:10 → 2N 15:54 → ENTRNSPT 06-09 16:02 → 4E 06-09 16:26
PROVIDERS: Hospitalist; Internal Medicine; Physician Assistant; ADMIT Hospitalist
PROC: 0Y6S0Z0 Detachment at Left 2nd Toe, Complete, Open Approach (ICD-10-PCS; principal; 2019-06-11)
PROC: 0W9G3ZZ Drainage of Peritoneal Cavity, Percutaneous Approach (ICD-10-PCS; 2019-06-15)
DX: A41.9 Sepsis, unspecified organism (principal); E43 Unspecified severe protein-calorie malnutrition; M86.8X7 Other osteomyelitis, ankle and foot; L02.612 Cutaneous abscess of left foot; R18.8 Other ascites; E10.52 Type 1 diabetes mellitus with diabetic peripheral angiopathy with gangrene; L03.032 Cellulitis of left toe; B96.5 Pseudomonas (aeruginosa) (mallei) (pseudomallei) as the cause of diseases classified elsewhere; B95.2 Enterococcus as the cause of diseases classified elsewhere; E10.621 Type 1 diabetes mellitus with foot ulcer; E10.42 Type 1 diabetes mellitus with diabetic polyneuropathy; E10.65 Type 1 diabetes mellitus with hyperglycemia; E10.69 Type 1 diabetes mellitus with other specified complication; K74.60 Unspecified cirrhosis of liver; I10 Essential (primary) hypertension; E78.5 Hyperlipidemia, unspecified; N50.89 Other specified disorders of the male genital organs; Z68.25 Body mass index [BMI] 25.0-25.9, adult; L97.529 Non-pressure chronic ulcer of other part of left foot with unspecified severity; Z91.14 Patient's other noncompliance with medication regimen; Z86.19 Personal history of other infectious and parasitic diseases; Z79.4 Long term (current) use of insulin; Z79.82 Long term (current) use of aspirin; Z79.899 Other long term (current) drug therapy; Z82.49 Family history of ischemic heart disease and other diseases of the circulatory system
CPT/HCPCS: 10081; 10084; 10783; 50010; 50101; 50386; 57091; 62110; 62900; 70005

== ENCOUNTER → 2019-06-29 | Outpatient (CLI) | payer OTHER ==
[~2019-06-29] MED LIST: ACETAMINOPHEN325 M1 PO; AMBIEN 5 MG TABL5 M1 PO; ASPIR 8181 MG PO; GLIPIZIDE 10 MG10 MG PO; GLIPIZIDE 5 MG T5 MG PO; GLUCOPHAGE XR750 MG PO; HYDROCODON-ACE1 EAC7 PO; INDERAL 20 MG T20 M1 PO; KLOR-CON 1010 MEQ PO; LANTUS100 UNIT/M SUBQ; LASIX 20 MG TAB20 MG PO; LEVAQUIN 750 M750 MG PO; LEVEMIR FL100 UNIT/2 SUBQ; LIPITOR10 MG PO; LISINOPRIL20 MG PO; NOVOLOG100 UNIT/1 SUBQ
== END ==
LOC: HYPER 06-27 11:41
DX: T87.89 Other complications of amputation stump (principal); L03.116 Cellulitis of left lower limb; E11.69 Type 2 diabetes mellitus with other specified complication; M86.672 Other chronic osteomyelitis, left ankle and foot; E11.43 Type 2 diabetes mellitus with diabetic autonomic (poly)neuropathy; Z79.4 Long term (current) use of insulin; Z79.84 Long term (current) use of oral hypoglycemic drugs; Y83.5 Amputation of limb(s) as the cause of abnormal reaction of the patient, or of later complication, without mention of misadventure at the time of the procedure

== ENCOUNTER → 2019-07-15 | Outpatient (CLI) | payer OTHER | LOC: HYPER 07:07 | DX: T87.89 Other complications of amputation stump (principal); L03.116 Cellulitis of left lower limb; E11.69 Type 2 diabetes mellitus with other specified complication; M86.672 Other chronic osteomyelitis, left ankle and foot; E11.43 Type 2 diabetes mellitus with diabetic autonomic (poly)neuropathy; E11.65 Type 2 diabetes mellitus with hyperglycemia; K74.60 Unspecified cirrhosis of liver; Z79.4 Long term (current) use of insulin; Z79.84 Long term (current) use of oral hypoglycemic drugs; Y83.5 Amputation of limb(s) as the cause of abnormal reaction of the patient, or of later complication, without mention of misadventure at the time of the procedure ==

== ENCOUNTER → 2019-07-29 | Outpatient (CLI) | payer OTHER | LOC: HYPER 05:36 | DX: T87.89 Other complications of amputation stump (principal); S80.822A Blister (nonthermal), left lower leg, initial encounter; L03.116 Cellulitis of left lower limb; E11.69 Type 2 diabetes mellitus with other specified complication; M86.672 Other chronic osteomyelitis, left ankle and foot; E11.43 Type 2 diabetes mellitus with diabetic autonomic (poly)neuropathy; E11.65 Type 2 diabetes mellitus with hyperglycemia; Z79.4 Long term (current) use of insulin; Y83.5 Amputation of limb(s) as the cause of abnormal reaction of the patient, or of later complication, without mention of misadventure at the time of the procedure; X58.XXXA Exposure to other specified factors, initial encounter; Y93.89 Activity, other specified; Y92.89 Other specified places as the place of occurrence of the external cause; Y99.8 Other external cause status ==

== ENCOUNTER → 2019-08-12 | Outpatient (CLI) | payer OTHER | LOC: HYPER 07:56 | DX: T87.89 Other complications of amputation stump (principal); E11.69 Type 2 diabetes mellitus with other specified complication; M86.672 Other chronic osteomyelitis, left ankle and foot; E11.43 Type 2 diabetes mellitus with diabetic autonomic (poly)neuropathy; S80.822D Blister (nonthermal), left lower leg, subsequent encounter; Z79.4 Long term (current) use of insulin; Z79.84 Long term (current) use of oral hypoglycemic drugs; X58.XXXD Exposure to other specified factors, subsequent encounter; Y83.5 Amputation of limb(s) as the cause of abnormal reaction of the patient, or of later complication, without mention of misadventure at the time of the procedure ==

== ENCOUNTER → 2019-08-26 | Outpatient (CLI) | payer OTHER | LOC: HYPER 16:21 | DX: T87.89 Other complications of amputation stump (principal); S80.822D Blister (nonthermal), left lower leg, subsequent encounter; L84 Corns and callosities; E11.69 Type 2 diabetes mellitus with other specified complication; M86.672 Other chronic osteomyelitis, left ankle and foot; E11.43 Type 2 diabetes mellitus with diabetic autonomic (poly)neuropathy; Z79.4 Long term (current) use of insulin; Z79.84 Long term (current) use of oral hypoglycemic drugs; X58.XXXD Exposure to other specified factors, subsequent encounter; Y83.5 Amputation of limb(s) as the cause of abnormal reaction of the patient, or of later complication, without mention of misadventure at the time of the procedure ==

== ENCOUNTER → 2019-09-16 | Outpatient (CLI) | payer OTHER | LOC: HYPER 09:58 | DX: T81.89XD Other complications of procedures, not elsewhere classified, subsequent encounter (principal); E11.622 Type 2 diabetes mellitus with other skin ulcer; L97.822 Non-pressure chronic ulcer of other part of left lower leg with fat layer exposed; E11.69 Type 2 diabetes mellitus with other specified complication; M86.672 Other chronic osteomyelitis, left ankle and foot; E11.43 Type 2 diabetes mellitus with diabetic autonomic (poly)neuropathy; E11.65 Type 2 diabetes mellitus with hyperglycemia; I87.2 Venous insufficiency (chronic) (peripheral); K74.60 Unspecified cirrhosis of liver; R60.0 Localized edema; Z79.4 Long term (current) use of insulin; Z79.84 Long term (current) use of oral hypoglycemic drugs; Y83.8 Other surgical procedures as the cause of abnormal reaction of the patient, or of later complication, without mention of misadventure at the time of the procedure ==

== ENCOUNTER → 2019-10-01 | Outpatient (CLI) | payer OTHER | LOC: HYPER 09:02 | DX: E11.622 Type 2 diabetes mellitus with other skin ulcer (principal); L97.822 Non-pressure chronic ulcer of other part of left lower leg with fat layer exposed; E11.69 Type 2 diabetes mellitus with other specified complication; M86.672 Other chronic osteomyelitis, left ankle and foot; E11.43 Type 2 diabetes mellitus with diabetic autonomic (poly)neuropathy; R60.0 Localized edema; Z79.4 Long term (current) use of insulin; Z79.84 Long term (current) use of oral hypoglycemic drugs; I87.2 Venous insufficiency (chronic) (peripheral) ==

== ENCOUNTER → 2019-10-14 | Outpatient (CLI) | payer OTHER | LOC: HYPER 09:15 | DX: E11.622 Type 2 diabetes mellitus with other skin ulcer (principal); L97.822 Non-pressure chronic ulcer of other part of left lower leg with fat layer exposed; E11.69 Type 2 diabetes mellitus with other specified complication; M86.672 Other chronic osteomyelitis, left ankle and foot; E11.43 Type 2 diabetes mellitus with diabetic autonomic (poly)neuropathy; E11.65 Type 2 diabetes mellitus with hyperglycemia; I87.2 Venous insufficiency (chronic) (peripheral); R60.0 Localized edema; K74.60 Unspecified cirrhosis of liver; Z79.4 Long term (current) use of insulin; Z79.84 Long term (current) use of oral hypoglycemic drugs ==

== ENCOUNTER 2019-11-03 08:43 | Inpatient (IN) | payer OTHER ==
[~2019-11-03] VITALS: Ht 177.8 cm; Wt 86.6 kg
[2019-11-03 17:00] VITALS: BP 159/79
[2019-11-03 17:12] LABS: HEMATOCRIT 34.7 % (42.0-52.0); MCH 31.8 pg (26.0-34.0); MCHC 34.6 g/dL (28.0-37.0); MCV 91.8 fL (80.0-100.0); RBC 3.78 mil/uL (4.50-6.00); RDW 17.5 % (10.5-14.5); WBC 5.4 thou/uL (4.0-11.0)
[2019-11-03 17:22] LABS: ALBUMIN 3.3 g/dL (3.4-5.0); CALCIUM 8.8 mg/dL (8.5-10.1); CREATININE 0.8 mg/dL (0.7-1.3); MAGNESIUM 1.9 mg/dL (1.8-2.4); POTASSIUM 3.9 mmol/L (3.5-5.1); TOTAL BILIRUBIN 1.6 mg/dL (<0.1-1.0); TOTAL PROTEIN 8.4 g/dL (6.4-8.2)
[2019-11-03 17:46] LABS: ABSOLUTE NEUTROPHILS 3.9 thou/uL (1.4-8.2)
[2019-11-03 17:47] LABS: ANISOCYTOSIS 2+
[2019-11-03 17:48] LABS: PLATELET COUNT 97 thou/uL (150-400); POLYCHROMASIA OCCASIONAL
--- NOTE | 2019-11-03 19:08 | NUR ---
Assumed care of pt at 0700. Pt a&ox4. Direct admission from wound clinic. Pictures of wound taken and in chart. IV started. First dose of vancomycin infusing. Admission completed. Denies pain. Call light within reach. Report given to gregorio MARTIN.
[2019-11-03 19:10] VITALS: BP 149/77
[2019-11-03] MEDS ORDERED: GLIPIZIDE5 MG PO (19:39)
[2019-11-03] MEDS ORDERED: CORGARD40 M1 PO (19:41)
[2019-11-03] MEDS ORDERED: METFORMIN HCL500 M3 PO (19:42)
[2019-11-04 03:50] VITALS: BP 120/61
--- NOTE | 2019-11-04 05:25 | NUR ---
PT DENIED PAIN/N/V SO FAR.UP ADLIB IN THE ROOM TO THE BR.PT'S DRSG ON HIS L WEAVER CHANGED WITH WET-DRY DRSG AFTER OBTAINING WOUND CX.STILL NEED A UA ON PT,SPECIMEN CUP IN PT'S BR,PT AWARE.PT CONT ON IV VANCO.PT RESTING ON HIS BED AT THIS TIME.CALL LIGHT WITHIN REACH.
[2019-11-04 05:49] LABS: ABSOLUTE NEUTROPHILS 2.8 thou/uL (1.4-8.2); BASOPHILS 0.5 % (0.0-2.0); EOSINOPHILS 4.4 % (0.0-3.0); HEMATOCRIT 29.9 % (42.0-52.0); HEMOGLOBIN 10.4 gm/dL (14.0-18.0); LYMPHOCYTES 23.3 % (24.0-44.0); MCH 31.9 pg (26.0-34.0); MCV 91.2 fL (80.0-100.0); MONOCYTES 10.5 % (1.0-8.0); PLATELET COUNT 83 thou/uL (150-400); POLYS 61.3 % (36.0-66.0); RBC 3.27 mil/uL (4.50-6.00); RDW 17.6 % (10.5-14.5); WBC 4.6 thou/uL (4.0-11.0)
[2019-11-04 06:51] LABS: CALCIUM 8.1 mg/dL (8.5-10.1); CREATININE 0.9 mg/dL (0.7-1.3); MAGNESIUM 1.6 mg/dL (1.8-2.4); POTASSIUM 3.6 mmol/L (3.5-5.1)
[2019-11-04 08:11] VITALS: BP 133/68
[2019-11-04 08:24] LABS: URINE BILIRUBIN NEGATIVE (Negative); URINE BLOOD 1+ (Negative); URINE CLARITY CLEAR; URINE COLOR YELLOW; URINE GLUCOSE-RANDOM* 2+ (Negative); URINE KETONES NEGATIVE (Negative); URINE LEUKOCYTES-REFLEX NEGATIVE (Negative); URINE NITRITE-REFLEX NEGATIVE (Negative); URINE PROTEIN (DIPSTICK) NEGATIVE (Negative)
[2019-11-04 08:32] LABS: BACTERIA-REFLEX 1-9 Few /HPF (None Seen); CASTS None Seen /LPF (None Seen); CRYSTALS None Seen /LPF (None Seen); SQUAMOUS None Seen /LPF (0-3); URINE RBC 0-2 Rare /HPF (0-2); URINE WBC-REFLEX None Seen /HPF (0-5)
--- NOTE | 2019-11-04 08:35 | NUR ---
INITIAL ASSESSMENT: Pt evaluated for d/c planning needs. Reviewed chart and spoke with nurse and pt. Pt is alert and oriented. Pt lives in house and son lives with him. Pt has no DME and has had [facility] in the past. Pt remains active in the community and is still driving. Pt said his truck is parked in the front of the hospital and he wanted security notified. Called security and informed officer that pt had been admitted and that his black [employer] [facility] truck is parked in handicapped parking spot in the front of the hospital. Pt plans on returning home on d/c from hospital. Will remain available to assist as needed.
--- NOTE | 2019-11-04 10:28 | NUR ---
DR BEASLEY HERE TO SEE PATIENT CULTURE OF LEFT WEAVER OBTAINED AT THIS TIME.
--- NOTE | 2019-11-04 12:03 | NUR ---
WOUND CARE FOLLOW UP; ROUNDING WITH DR DESAI TODAY. THE LEFT FOOT AND THE LEFT WEAVER WOUND WERE ASSESSED AND DR PENA ORDERED SILVADINE TO THE DRESSING CHANGES TO BOTH AREAS WITH A BORDER FOAM. DISCUSSED WITH VERONICA
[2019-11-04 17:13] VITALS: BP 133/68
[2019-11-04 20:20] VITALS: BP 145/79
[2019-11-05 04:41] VITALS: BP 133/63
--- NOTE | 2019-11-05 06:37 | NUR ---
PT DENIED PAIN SO FAR.DRSG CHANGE TO HIS R WEAVER AND TOE DONE.PT UP ADLIB TO THE BR WITH A STEADY GAIT.PT CONT ON IV ABX ORDERED.PT RESTING ON HIS BED AT THIS TIME.CALL LIGHT WITHIN REACH.
[2019-11-05 07:14] VITALS: BP 144/70
--- NOTE | 2019-11-05 07:30 | NUR ---
PT IN ROOM WATCHING TV VS'S TAKEN. ACCU CHECK THIS AM = 123 PT STATES NO PAIN THIS AM
--- NOTE | 2019-11-05 15:47 | NUR ---
THIS AM INDICATED THAT HE THOUGH PT MIGHT NEED TO DC HOME ON IV VANC. CM SENT REFERRAL OVER TO [facility] TO CHECK PT COVERAGE FOR HIS CURRENT DOSE TO JUST HAVE THE INFO IF NEEDED. THEY INDICATED THAT PT HAD OOP $3,300 OF WHICH $298.34 HAS BEEN MET COVERAGE IS 80/20 UNTIL OOP. APPROX $15.00 PER DAY BUT ONCE OOP IS MET COVERED AT 100%. CM TO AWAIT INDICATED FOR NEEDS UPON DC. CM TO FOLLOW INDICATED WITH DC PLANNING.
[2019-11-05 15:53] VITALS: BP 149/75
[2019-11-05 19:04] VITALS: BP 139/65
--- NOTE | 2019-11-05 19:10 | NUR ---
PATIENT RESTING IN BED AT THIS TIME WATCHING TV. NO PAIN WAS GIVEN PRN PAIN MED EARLIER. DRESSINGS INTACT TO LE'S ORDERED. IV ABT INFUSED ORDERED. PT PLEASANANT AND COOPERATIVE WITH CARE.
--- NOTE | 2019-11-06 01:02 | NUR ---
ASSESSMENT COMPLETED.PT DENIED PAIN SO FAR.PT'S DRSG ON HIS L WEAVER C/D/I.DR ESCOTO THIS SHIFT TO SEE PT STARTED HIM ON A NEW IV ABX.PT UP ADLIB IN ROOM.PT RESTING ON HIS BED AT THIS TIME.PT LOOKING FORWARD TO BE DC'D TODAY.CALL LIGHT WITHIN REACH.
[2019-11-06 03:31] VITALS: BP 135/68
[2019-11-06 07:08] LABS: ALBUMIN 2.7 g/dL (3.4-5.0); CALCIUM 8.4 mg/dL (8.5-10.1); CREATININE 0.8 mg/dL (0.7-1.3); PHOSPHORUS 4.1 mg/dL (2.5-4.9); POTASSIUM 3.6 mmol/L (3.5-5.1)
[2019-11-06 08:17] VITALS: BP 145/73
--- NOTE | 2019-11-06 14:56 | NUR ---
PT ASSESSED AT START OF SHIFT. PT IN GOOD SPIRITS. EATING AND DRINKING WELL. UP AD LUTHER IN ROOM. WILL HAVE PICC LINE PLACED THIS AFTERNOON FOR ANTIBIOTICS POST DISCHARGE -AWAITING AUTHORIZATION. WOUND RN DOING DRESSING CHANGES.
--- NOTE | 2019-11-06 15:02 | NUR ---
CARE TEAM INDICATED THAT WE ARE STILL AWAITING C/S. IT IS ANTICPATED THAT PT WILL LIKELY NEED HOME UINFUSION AND THAT WOULD BE MEDICALLY STABLE FOR DC BEGINING OF NEXT WEEK. CM NOTIFIED [facility]. CM TO FOLLOW INDICATED WITH DC PLANNING. PT WILL LIKELY BE HERE OVER THE WEEKEND.
[2019-11-06 17:57] VITALS: BP 154/86
[2019-11-06 19:00] VITALS: BP 143/69
--- NOTE | 2019-11-06 21:44 | NUR ---
PT ASSESSMENT COMPLETED. PT IS ALERT AND ORIENTRED, AFEBRILE.DENIES N/V.SITTING IN CHAIR. UP AD LUTHER.DENIES PAIN.INSULIN GIVEN. GOOD APPETITE.NO CONCERNS AT THIS TIME.
[2019-11-07 03:00] VITALS: BP 115/48
[2019-11-07 07:55] VITALS: BP 133/61
[2019-11-07 16:40] VITALS: BP 123/54
[2019-11-07 19:30] VITALS: BP 146/61
[2019-11-08 03:18] VITALS: BP 129/62
--- NOTE | 2019-11-08 06:22 | NUR ---
PT CONTINUES TO RECEIVE IV ABTS. HE DENIES PAIN OR ANY DISCOMFORT. UP AD LUTHER IN ROOM. DRSG TO LLE IS C/D/I. CALLS WITH NEEDS.
--- NOTE | 2019-11-08 13:41 | NUR ---
VASCULAR ACCESS TEAM CONSULTED FOR PICC PRIOR TO DISCHARGE BUT PT'S PIV INFILTRATED AND HE REQUESTED PICC PLACEMENT TODAY. DISCUSSED BENEFITS AND RISK OF PICC, VERBALIZED UNDERSTANDING. MARK BASILIC WIDELY PATENT WITH USG. 4FR SL POWER PICC TRIMMED TO 46CM INSERTED TO 2CM EXTERNAL. STAT CXR ORDERED. PT TOLERATED WELL. WALLET CARD GIVEN TO PT.
--- NOTE | 2019-11-08 14:54 | NUR ---
CXR CONFIRMED GOOD POSITION IN SVC, PICC RELEASED FOR IMMEDIATE USE TO INA MARTIN PER PROTOCOL
[2019-11-08 16:52] VITALS: BP 139/65
[2019-11-08 19:15] VITALS: BP 140/87
[2019-11-09 03:15] VITALS: BP 99/60
--- NOTE | 2019-11-09 04:10 | NUR ---
ASSESSED AT START OF SHIFT. PT A&OX4. BLOOD SUGAR CHECKED AND INSULIN GIVEN. DRESSING INTACT IN LEFT WEAVER. PICC LINE INTACT AND IV ABX INFUISING. ISOLATION MAINTAINED. PT AD LUTHER IN THE ROOM. WILL CONT WITH POC TILL EOS.
[2019-11-09 05:29] LABS: ABSOLUTE NEUTROPHILS 3.3 thou/uL (1.4-8.2); BASOPHILS 0.6 % (0.0-2.0); EOSINOPHILS 3.7 % (0.0-3.0); HEMOGLOBIN 10.7 gm/dL (14.0-18.0); MCH 32.2 pg (26.0-34.0); MCHC 35.8 g/dL (28.0-37.0); MCV 89.9 fL (80.0-100.0); MONOCYTES 10.3 % (1.0-8.0); PLATELET COUNT 97 thou/uL (150-400); POLYS 63.4 % (36.0-66.0); RBC 3.34 mil/uL (4.50-6.00); RDW 16.9 % (10.5-14.5); WBC 5.2 thou/uL (4.0-11.0)
--- NOTE | 2019-11-09 07:39 | HC ---
[facility] [place] [address] [place] [address] CONSULTATION Name: ROEL GIPSON Room #: 434-P ADM IN M.R.#: [id number] Admission: 11/03/19 Attend Phys: Dontrell Joyce MD Discharge: Date of : 58 Report #: [id number] THIS REPORT FOR: cc: JUS - No family physician/PCP JUS - No family physician/PCP Sanjiv Witt MD ~ THIS REPORT FOR: //name// CC: Rayo Calderon [facility] physician/PCP Rhett Joyce DATE OF SERVICE: 11/04/2019 CHIEF COMPLAINT: Cellulitis of left leg. HISTORY OF PRESENT ILLNESS: This is a 59-year-old male patient with whom I am familiar from previous hospitalizations. He has had a previous toe amputation on the left side. He has developed increasing pain, swelling, and drainage to his left leg and was admitted to the hospital for ongoing treatment and evaluation with intravenous antibiotic therapy. I have been asked to see him with regard to wound care. PAST MEDICAL HISTORY: Positive for history of hypertension, hyperlipidemia, hepatic cirrhosis, osteomyelitis of the left second toe, status post amputation, venous stasis dermatitis, and ulceration of left lower extremity. ALLERGIES: None. MEDICATIONS: Include hydrocodone, acetaminophen, zolpidem, metformin, insulin, glipizide, furosemide, and potassium. PAST MEDICAL HISTORY: Diabetes mellitus, cirrhosis, and hypertension as well as left second toe amputation. SOCIAL HISTORY: Negative for current alcohol or tobacco use. FAMILY HISTORY: Noncontributory. REVIEW OF SYSTEMS: CONSTITUTIONAL: The patient denies fever, chills, or weight loss. NEUROLOGICAL: The patient denies focal weakness, numbness, or tingling. EYES: The patient denies visual changes, redness, or drainage. ENT: The patient denies earache, nasal drainage, or sore throat. CARDIOVASCULAR: The patient denies chest pain, palpitations, or diaphoresis. [facility] [address] [place] [address] CONSULTATION Name: ROEL GIPSON Room #: [address] [place] [address] IN Sergio.#: [id number] Admission: 11/03/19 Attend Phys: Dontrell Joyce MD Discharge: Date of : 58 Report #: [id number] PULMONARY: The patient denies cough or shortness of breath. GASTROINTESTINAL: The patient denies nausea, vomiting, diarrhea, or abdominal pain. ORTHOPEDIC: The patient does complain of pain, swelling, and drainage from his left leg. Other systems in a 14-point review of systems are negative. PHYSICAL EXAMINATION: VITAL SIGNS: At this time include temperature 98.0, pulse 79, respiratory rate 18, and blood pressure 145/79. GENERAL: This is a chronically ill-appearing male patient, who appears to be in no distress. HEENT: Head is normocephalic. Nose and throat are clear. NECK: Clear. LUNGS: Clear. ABDOMEN: Soft. Bowel sounds present. EXTREMITIES: Examination of the abdomen is soft and nontender. Lower extremities demonstrate good capillary refill. SKIN: Intact. Left second toe amputation site well intact. Multiple ulcerations to the left pretibial region with significant drainage, redness, and some odor present. CLINICAL IMPRESSION: 1. Cellulitis of left leg and foot. 2. Venous stasis ulcerations to the left pretibial region. 3. Diabetic foot ulceration, plantar left foot. 4. Diabetes with peripheral neuropathy. RECOMMENDATIONS: At this point in time, recommend intravenous antibiotic therapy as he has resistant bacteria from outpatient culture. Recommend Silvadene, Xeroform, and Kerlix to the pretibial region, ongoing nutritional support and continuation of current medications. I appreciate being asked to see him in consultation. <ELECTRONICALLY SIGNED> By: Sanjiv Witt MD 11/09/19 0739 [id number] Sanjiv Witt MD /nt
--- NOTE | 2019-11-09 16:25 | NUR ---
SHOULD ID ROUND AND CARE TEAM DETERMINE THAT PT IS MEDICALLY STABLE TO DC HOME THIS DAY. FAX ORDERS TO [facility] CALL [place] . FAX ORDERS TO TARA AT . OTHERWISE CM WILL FOLLOW UP AND MAKE DC ARRANGEMENTS ONCE INDICATED.
[2019-11-09] MEDS ORDERED: ZYVOX600 MG PO (17:55)
[2019-11-09] MEDS ORDERED: LINEZOLID600 MG PO (17:55)
[2019-11-09 20:39] VITALS: BP 140/70
[2019-11-10] VITALS (7 sets, daily range): BP systolic 94–123; BP diastolic 50–67
--- NOTE | 2019-11-10 04:17 | NUR ---
ASSESSED AT START OF SHIFT PT. PT A&OX4 DENIES PAIN. DRESSING IN LFT WEAVER INTACT. BLOOD SUGAR 311. NO NIGHT TIME INSULIN AVAILABLE TO ADMINISTER. RECHECKED BLOOD SUGAR BACK DOWN TO 271. CALLED ONCALL ADMINISTRATION INTERN PER ORDERS STATED SINCE INSULIN WAS GIVEN IN THE DAY TO MONITOR AND FF UP IN THE AM NOTIFIED PT. PT AD LUTHER IN THE ROOM. CALL LIGHT AND ISOLATION MAINTAINED WILL CONT WITH POC TILL EOS.
--- NOTE | 2019-11-10 07:58 | NUR ---
PT ALERT XS 4 STATES NO PAIN AT PRESENT. BLOOD SUGAR TO BE CHECKED THIS AM. PT TO DISCHARGE TO HOME TODAY. PT PLEASANT AND COOPERATIVE WITH CARE.
--- NOTE | 2019-11-10 11:12 | NUR ---
TREATMENT TO LEFT LE ORDERED WOUND CARE PICTURES TAKEN. PT TO DISCHARGE AFTER LUNCH. PICC IV ACSESS DCD TO LEFT UPPER ARM. PT W/O PAIN AT PRESENT
[2019-11-10] MEDS ORDERED: GLUCOPHAGE500 MG PO (14:06)
[2019-11-10] MEDS ORDERED: SPIRONOLACTONE25 M1 PO (14:06)
[2019-11-10] MEDS ORDERED: SSD CREAM 1% 5050 GM TOP (14:06)
[2019-11-10] MEDS ORDERED: HUMALOG100 UNIT/1 SUBQ (14:06)
--- NOTE | 2019-11-10 14:55 | NUR ---
DISCHARGE PAPERS GONE OVER WITH PATIENT SIGNED AND COPY IN CHART. IV ACSESS DCD. ALL BELONGINGS PACKED AND SENT WITH PATIENT. PATIENT AND HOSPITAL STAFF TO STOP BY IN HOUSE PHARMACY FOR MEDS HE BROUGHT FROM HOME. PT W/O PAIN OR RESP DISTRESS AT DISCHARGE.
--- NOTE | 2019-11-10 15:14 | NUR ---
CARE TEAM INDICATED THAT PT IS MEDICALLY STABLE TO DC HOME THIS DAY. ORDERS WERE SENT TO [facility] FOR HH SERVIES UP DC. PT HAS ALL RECOMMENDED DME. NO OTHER CM INTERVETNION INDICATED. CASE CLOSED.
--- NOTE | 2019-11-10 16:26 | NUR ---
FAXED DC ORDERS/SUMMARY TO [facility] SPOKE WITH KAITLIN IN INTAKE THEY RECEIVED DC ORDERS AND WILL NOTIFY PT TIME OF VISITS.
--- NOTE | 2019-11-11 07:53 | NUR ---
CALL RECEIVED FROM [facility]. [facility] REQUESTING ADDITIONAL PATIENT INFORMATION, PHYSICIAN PROGRESS NOTES, TO BE FAXED TO HER. PHYSICIAN PROGRESS NOTES FORM 11/09/2019 AND 11/10/2019 PRINTED AND FAXED TO [facility] PER REQUEST.
== END 2019-11-10 15:01 | disposition home health service (06) | DRG 602 ==
LOC: HYPER 08:43 → 4S 16:18 → ENTRNSPT 11-10 14:45 → EDTRNSPTSTS 11-10 14:47 → 4S 11-10 15:01
PROVIDERS: Internal Medicine Infectious Disease; Nurse Practitioner; ADMIT Hospitalist
PROC: 05HY33Z Insertion of Infusion Device into Upper Vein, Percutaneous Approach (ICD-10-PCS; principal; 2019-11-08)
DX: L03.116 Cellulitis of left lower limb (principal); E43 Unspecified severe protein-calorie malnutrition; L97.929 Non-pressure chronic ulcer of unspecified part of left lower leg with unspecified severity; R18.8 Other ascites; L97.919 Non-pressure chronic ulcer of unspecified part of right lower leg with unspecified severity; E11.621 Type 2 diabetes mellitus with foot ulcer; L03.115 Cellulitis of right lower limb; K74.60 Unspecified cirrhosis of liver; I10 Essential (primary) hypertension; E78.5 Hyperlipidemia, unspecified; E11.42 Type 2 diabetes mellitus with diabetic polyneuropathy; I87.8 Other specified disorders of veins; I87.2 Venous insufficiency (chronic) (peripheral); Z22.322 Carrier or suspected carrier of Methicillin resistant Staphylococcus aureus; Z68.27 Body mass index [BMI] 27.0-27.9, adult; Z89.422 Acquired absence of other left toe(s); Z79.84 Long term (current) use of oral hypoglycemic drugs; Z79.891 Long term (current) use of opiate analgesic; Z79.899 Other long term (current) drug therapy; Z79.82 Long term (current) use of aspirin
CPT/HCPCS: 10102; 27000

== ENCOUNTER → 2019-11-16 | Outpatient (CLI) | payer OTHER ==
[~2019-11-16] MED LIST changes: +CORGARD40 M1 PO; +GLIPIZIDE5 MG PO; +GLUCOPHAGE500 MG PO; +HUMALOG100 UNIT/1 SUBQ; +LINEZOLID600 MG PO; +METFORMIN HCL500 M3 PO; +SPIRONOLACTONE25 M1 PO; +SSD CREAM 1% 5050 GM TOP; +ZYVOX600 MG PO
== END ==
LOC: HYPER 08:22
DX: I87.332 Chronic venous hypertension (idiopathic) with ulcer and inflammation of left lower extremity (principal); E11.622 Type 2 diabetes mellitus with other skin ulcer; L97.822 Non-pressure chronic ulcer of other part of left lower leg with fat layer exposed; E11.621 Type 2 diabetes mellitus with foot ulcer; L97.522 Non-pressure chronic ulcer of other part of left foot with fat layer exposed; E11.43 Type 2 diabetes mellitus with diabetic autonomic (poly)neuropathy; L84 Corns and callosities; E11.69 Type 2 diabetes mellitus with other specified complication; M86.672 Other chronic osteomyelitis, left ankle and foot; E11.65 Type 2 diabetes mellitus with hyperglycemia; Z79.82 Long term (current) use of aspirin; Z79.4 Long term (current) use of insulin

== ENCOUNTER 2019-12-13 16:34 | Inpatient (IN) | payer OTHER ==
[~2019-12-13] VITALS: Ht 177.8 cm; Wt 89.6 kg
--- NOTE | ~2019-12-13 | O ---
[facility] [place] [address] OPERATIVE REPORT Name: ROEL GIPSON Room #: 3- ADM IN M.R.#: [id number] Admission: 12/13/19 Attend Phys: Tessy Lambert MD Discharge: Date of : 58 Report #: [id number] THIS REPORT FOR: cc: Maitas Mcclain MD, Amit J. MD Kneidel, Matthew T. MD ~ CC: Matias Lambert DATE OF SERVICE: 12/14/2019 PREOPERATIVE DIAGNOSIS: Left femoral neck fracture. POSTOPERATIVE DIAGNOSIS: Left femoral neck fracture. PROCEDURE: Left hip hemiarthroplasty. SURGEON: Dr. Earnest Gomez. TAX SERVICES PROFESSIONAL: Elisa Navarro. ANESTHESIA: General. ESTIMATED BLOOD LOSS: Minimal. DRAINS: No drains. TOURNIQUET TIME: Zero. ESTIMATED BLOOD: 50 mL. COMPLICATIONS: There were no complications. DESCRIPTION OF PROCEDURE: The patient was brought to the operating room where he was placed under general anesthesia. Once under adequate general anesthesia, he was placed into a lateral decubitus position on the operative table. His left lower extremity was then prepped and draped in sterile manner. A 14 cm incision was then made overlying the tip of the greater trochanter. This was dissected down through the soft tissue to the tensor fascia, which was incised in line with the incision. Closure was then made of the posterior hip. A posterior approach to the hip was then made, elevating the piriformis along with the joint capsule. Once the hematoma was evacuated, the fracture was identified and the femoral head was then extracted. This was sized as a size 50 mm femoral head. The femoral neck was then cut to length and subsequently reaming and broaching to a size 9 femoral stem cementless was achieved. Trial components were placed and trial reduction did appear to be stable; therefore, the wound [address] [address] OPERATIVE REPORT Name: ROEL GIPSON Room #: 443-P [facility] IN .R.#: [id number] Admission: 12/13/19 Attend Phys: Tessy Lambert MD Discharge: Date of : 58 Report #: [id number] was irrigated copiously. The size 9 stem was then placed and the +5 neck along with the 50 mm head. A reduction was achieved and was very stable. The wound was irrigated copiously. The capsular layer was closed with #2 FiberWire, #5 FiberWire was used to repair the piriformis back to its place in the fossa. The wound was irrigated once again copiously and closed with #1 Vicryl in the tensor fascia, 2-0 Vicryl in subcutaneous tissues and patrick were used for the skin. The wounds were dressed with Xeroform, 4 x 4s, and sterile soft compressive dressing was placed. There were no complications from the procedure. The patient tolerated the procedure well and went to recovery room without incident. By: 1343 Eduardo Gomez MD /juan manuel
[2019-12-13 16:35] VITALS: BP 182/93
[2019-12-13 17:17] LABS: ABSOLUTE NEUTROPHILS 4.1 thou/uL (1.4-8.2); BASOPHILS 0.5 % (0.0-2.0); EOSINOPHILS 2.8 % (0.0-3.0); HEMATOCRIT 34.6 % (42.0-52.0); HEMOGLOBIN 11.7 gm/dL (14.0-18.0); LYMPHOCYTES 14.3 % (24.0-44.0); MCH 30.3 pg (26.0-34.0); MCHC 33.8 g/dL (28.0-37.0); MCV 89.6 fL (80.0-100.0); MONOCYTES 5.7 % (1.0-8.0); PLATELET COUNT 93 thou/uL (150-400); POLYS 76.7 % (36.0-66.0); RBC 3.86 mil/uL (4.50-6.00); RDW 16.9 % (10.5-14.5); WBC 5.4 thou/uL (4.0-11.0)
[2019-12-13 17:26] LABS: CALCIUM 8.6 mg/dL (8.5-10.1); CREATININE 1.1 mg/dL (0.7-1.3); POTASSIUM 4.4 mmol/L (3.5-5.1)
[2019-12-13 17:28] LABS: APTT 31.6 Seconds (24.5-32.8); INR 1.2; PROTIME 12.1 Seconds (9.3-11.4)
[2019-12-13 17:30] LABS: ALBUMIN 3.1 g/dL (3.4-5.0); DIRECT BILIRUBIN 0.5 mg/dL (<0.1-0.2); TOTAL BILIRUBIN 1.9 mg/dL (<0.1-1.0); TOTAL PROTEIN 7.9 g/dL (6.4-8.2)
[2019-12-13 18:20] VITALS: BP 182/93
[2019-12-13 18:44] VITALS: BP 143/86
[2019-12-13 19:35] VITALS: BP 151/76
[2019-12-13] MEDS ORDERED: LEVEMIR100 UNIT/1 SUBQ (21:53)
--- NOTE | 2019-12-14 01:44 | NUR ---
PT ARRIVED TO UNIT AT 1855, ORIENTED TO ROOM AND UNIT. PT AOX4. REPORTS 8/10 PAIN IN LEFT HIP. PT RECEIVING PRN IV MORPHINE Q3HR. PT NOTED TO HAVE WOUND ON LLE (WEAVER) WITH DRESSING PRIOR TO ADMIT. DRESSING REMOVED, NOTED TO HAVE XEROFORM AND BORDERD GAUZE. WOUND CARE PROVIDED, CLEANSED WITH NS, XEROFORM APPLIED, ABD, AND KERLIX WRAPPED. PT TOLERATED WOUND CARE WITHOUT ISSUE. WOUND PHOTOGRAPHED AND PLACED IN CHART. PT CONTINUES TO REST IN BED, FREQUENT REPOSITIONING ENCOURAGED. PT INDEPENDENT WITH REPOSITIONING WHILE IN BED. PT TOLERATING PO INTAKE OF FLUIDS WITHOUT ISSUE, NPO AT MIDNIGHT. PT ENCOURAGED TO NOTIFY STAFF FOR ALL NEEDS. CALL LIGHT WITHIN REACH, BED ALARM ON, BED IN LOWEST POSITION. WILL CONTINUE TO MONITOR.
[2019-12-14 04:10] VITALS: BP 126/65
[2019-12-14 07:51] VITALS: BP 142/58
--- NOTE | 2019-12-14 08:59 | EKG ---
[facility] [place] [address] ELECTROCARDIOGRAM REPORT Name: ROEL GIPSON Room #: 443- ADM IN M.R.#: [id number] Admission: 12/13/19 Attend Phys: Tessy Lambert MD Discharge: Date of : 58 Report #: [id number] THIS REPORT FOR: cc: Matias Mcclain MD, Amit J. MD Couchonnal, Luis F. 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
[2019-12-14 16:38] LABS: HEMOGLOBIN 11.3 gm/dL (14.0-18.0); MCH 30.8 pg (26.0-34.0); MCHC 34.3 g/dL (28.0-37.0); MCV 89.7 fL (80.0-100.0); RBC 3.68 mil/uL (4.50-6.00); WBC 8.1 thou/uL (4.0-11.0)
--- NOTE | 2019-12-14 17:49 | NUR ---
PT ASSESSED AT START OF SHIFT. DOING MUCH BETTER. MORE ALERT AND TALKATIVE THIS AFTERNOON. UP TO THE CHAIR FOR SEVERAL HOURS BY THERAPY. SAT ON THE BSC AND HAD GOOD BM. EATING SOME BETTER. MAINTAINING SWALLOW PRECAUTIONS. AFEBRILE THIS SHIFT. TRANSFERING TO [facility]N REHAB W/ ALL BELONGINGS AT THIS TIME. AT BEDSIDE.
--- NOTE | 2019-12-14 18:37 | NUR ---
PT NPO THIS AM FOR HEMIARTHROPLASTY THIS AFTERNOON BY DR. CHEW. PT RETURNED AT 1500 ALERT AND IN NO PAIN. FRIEND BOUGHT PT LARGE SODA DRINK AND HIS ACCUCK WENT UP TO 447-HE WAS TOLD TO BUY SUGAR FREE. AM MEDS AND INSULIN GIVEN PRIOR TO DINNER. LT HIP DSNG DRY AND HIP ABDUCTOR IN PLACE.
[2019-12-14 20:00] VITALS: BP 116/55
[2019-12-14 21:00] VITALS: BP 143/72
[2019-12-14 21:33] VITALS: BP 155/71
[2019-12-15 00:20] VITALS: BP 138/65
[2019-12-15 04:50] VITALS: BP 132/70
--- NOTE | 2019-12-15 05:18 | NUR ---
ASSESSED AT START OF SHIFT A&OX4. IV INTACT AND FLIUDS INFUISING. VSS. DRESSING INTACT IN LFT HIP AND ABDUCTOR PILLOW IN PLACE. URINAL AT BEDSIDE. BLOODSUGAR CHECKED AND INSULIN ADMINISTERED. NEW ORDERS PLACED FOR INSULIN ADMINISTRATION. PAIN MEDS GIVEN FOR MANAGEMENT. SCD'S IN PLACE AND FALL PREC INTACT WILL CONT TO MONITOR TILL EOS
[2019-12-15 05:56] LABS: HEMATOCRIT 27.3 % (42.0-52.0); HEMOGLOBIN 9.5 gm/dL (14.0-18.0); MCH 30.9 pg (26.0-34.0); MCHC 34.7 g/dL (28.0-37.0); MCV 89.1 fL (80.0-100.0); RBC 3.06 mil/uL (4.50-6.00); RDW 16.8 % (10.5-14.5)
--- NOTE | 2019-12-15 08:00 | NUR ---
0720 report from Angelika RN 0755 Report given to Sandra MARTIN
[2019-12-15 08:15] VITALS: BP 139/65
--- NOTE | 2019-12-15 10:15 | NUR ---
ASSUMED CARE OF THE PT AT 0700. PT IS UP WITH ASSIST W WALKER AND GAIT BELT, FALL PRECAUTIONS IN PLACE. L SIDE HIP DRESSING DRY AND INTACT. PT STATED NO SCD'S, WOUND CARE TEAM ADVISED HIM HE DOES NOT HAVE TO WEAR THEM. PTS BS CONTROLLED BY INSULIN. PT USES URINAL. PT WORKED WITH PT/OT. BED IN LOWEST POSITION AND CALL LIGHT IS IWTHIN REACH. WILL CONTINUE TO MONITOR THE PT.
--- NOTE | 2019-12-15 10:25 | NUR ---
RD consult received. Pt admitted with hip fracture following fall at home and has required surgical intervention 12/13. Hx diabetes, BG up to 400s this admit. Pt reports his usual insulin did not get ordered this admit. New orders for insulin noted. Last A1C 8.5 06/2019. Wts stable, and pt reports good appetite. He did not have any concerns regarding diet. Has left leg venous stasis ulcers with wound care following. Protein intake adequate. Low nutrition risk
--- NOTE | 2019-12-15 13:14 | NUR ---
PT ADMITTED RELATED TO LT HIP FX S/P HEMIARTHROPLASTY. CM REVIEWED CHART AND SPOKE WITH CARE TEAM. CM MET WITH PT AT BEDSIDE THIS DAY. PT IS A&O X4. CM ROLE INTRODUCED. PT INDICATED HE LIVES IN A HOUSE WITH HIS SONS WITH 4 STEPS TO ENTER AND NO STEPS INSIDE. 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 PT INDICATED THAT IF HE'S TO DISCHARGE HOME HE WILL NEED A FWW FOR HOME USE AND THAT HE MIGHT WANT TO RESUME WITH [facility]. CM PROVIDED PT WITH AN [employer] SNF LIST CHART INDICATED PT MIGHT NEED SHORT TERM POST ACUTE CARE STAY. CM TO FOLLOW INDICATED WITH DC PLANNING.
[2019-12-15 16:15] VITALS: BP 137/70
[2019-12-15 20:20] VITALS: BP 150/63
[2019-12-16 04:10] VITALS: BP 150/7
[2019-12-16 04:40] LABS: HEMATOCRIT 25.8 % (42.0-52.0); HEMOGLOBIN 9.1 gm/dL (14.0-18.0); MCH 31.1 pg (26.0-34.0); MCHC 35.3 g/dL (28.0-37.0); MCV 88.1 fL (80.0-100.0); RBC 2.93 mil/uL (4.50-6.00); RDW 17.2 % (10.5-14.5); WBC 9.7 thou/uL (4.0-11.0)
--- NOTE | 2019-12-16 05:18 | NUR ---
ASSUMED CARE OF PT @1900 PT ASSESSED AT START OF SHIFT. A&0X4. PAIN MEDS GIVENX1 THIS SHIFT. IV INTACT AND FLUIDS INFUISING. BLOODSUGAR CHECKED AND INSULIN ADMINISTERED THIS SHIFT. FALL PREC IN PLACE AND ISOLATION MAINTAINED. WILL CONT TO MONITOR TILL EOS.
[2019-12-16 08:00] VITALS: BP 171/65
--- NOTE | 2019-12-16 12:06 | NUR ---
CARE TEAM INDICATED THAT PT WOULD NEED POST ACUTE CARE STAY UPON DC. CM HAD PROVIDED PT LIST YESTERDAY. CM FOLLOWED UP WITH AM AND HE ASKED THAT REFERRALS BE SENT TO [place] HE LIVES RIGHT AROUND THE [facility] AND TO [facility]. REFERRALS SENT. CM TO FOLLOW INDICATED WITH DC PLANNING.
--- NOTE | 2019-12-16 13:35 | NUR ---
Assumed care of pt at 0700. Pt denies pain. Dressing c/d/i. Dressing on left lower extremity changed. IVF infusing. WBAT. Call light within reach. Fall precautions in place.
[2019-12-16 16:31] VITALS: BP 157/69
[2019-12-16 19:26] VITALS: BP 168/70
[2019-12-17 04:14] VITALS: BP 146/70
--- NOTE | 2019-12-17 05:06 | NUR ---
ASSUMED PT CARE AT 1900. PT REPORTS PAIN ONLY WITH MOVEMENT. LEFT HIP DRESSING DRY AND INTACT. UP TO THE COMMODE, LARGE BM TONIGHT. 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 FLUIDS INFUSING PER ORDER. PT CONCERNED ABOUT SIZE OF BELLY, WANTS TO TALK W/ DOC ABOUT REMOVING SOME FLUID. IN AND OUT OF SLEEP ALL SHIFT, WILL CONTINUE TO MONITOR.
[2019-12-17 07:16] VITALS: BP 130/65
--- NOTE | 2019-12-17 15:04 | NUR ---
CARE TEAM INDICATED THAT PT IS TO HAVE PARACENTESIS THIS DAY. STILL AWAITING AUTH FOR PT TO GO TO [facility]. CM TO FOLLOW INDICATED WITH DC PLANNING.
--- NOTE | 2019-12-17 15:32 | NUR ---
WOUND CARE F/U; ROUNDING WITH DR DESAI. THE LLE WAS ASSESSED AND FOUND TO BE HEALED. NO S/S OF INFECTION IDENTIFIED. THE PATIENT IS PARTICIPATING IN THERAPY AND IN GOOD SPIRITS. RECOMMENDATIONS; CONTINUE POC DISCUSSED WITH VERONICA
[2019-12-17 16:19] VITALS: BP 168/73
--- NOTE | 2019-12-17 16:38 | NUR ---
FAXED TODAY'S PT/OT NOTES TO [facility] RECEIVED CONFIRMATION. DP TO FOLLOW.
[2019-12-17 19:28] VITALS: BP 149/71
[2019-12-18] VITALS (8 sets, daily range): BP systolic 128–155; BP diastolic 61–74
[2019-12-18 05:34] LABS: HEMATOCRIT 24.1 % (42.0-52.0); HEMOGLOBIN 8.5 gm/dL (14.0-18.0); MCH 30.6 pg (26.0-34.0); MCHC 35.3 g/dL (28.0-37.0); MCV 86.7 fL (80.0-100.0); RBC 2.78 mil/uL (4.50-6.00); RDW 17.4 % (10.5-14.5); WBC 6.4 thou/uL (4.0-11.0)
[2019-12-18 05:49] LABS: ALBUMIN 2.2 g/dL (3.4-5.0); CALCIUM 7.6 mg/dL (8.5-10.1); CREATININE 0.9 mg/dL (0.7-1.3); MAGNESIUM 1.5 mg/dL (1.8-2.4); POTASSIUM 3.2 mmol/L (3.5-5.1); TOTAL PROTEIN 6.6 g/dL (6.4-8.2)
--- NOTE | 2019-12-18 07:37 | NUR ---
ASSUMED PT CARE AT 1900. PT REPORTS NO PAIN. FEVER TREATED WITH IBUPROFEN, AFEBRILE OF NOW. COUGH WITH LOOSE SPUTUM NOTED. PT CONCERNED ABOUT SWELLING OF SCROTUM, WANTS TO TALK WITH DR ABOUT IT TODAY. L HIP DRESSING DRY AND INTACT. AWAITING DISCHARGE TO REHAB.
--- NOTE | 2019-12-18 10:11 | NUR ---
PT CARE ASSUMED AT 0700.A&Ox4. PT ABDOMEN IS FIRM AND DISTENTED AFTER HAVING A PARACENTISIS JUST YESTERDAY. ACHS. PT COMPLAINS OF SCROTUM EDEMA. NO FEVER SINCE 0400 TODAY. WOUND CARE ON BOARD WITH NEW ORDERS. HIP DRESSING INTACT. PT AWAITNG INSURANCE APPROVAL TO GO TO A REHAB FACILITY. PT ON BOARD. BM THIS MORNING. USES URINAL. UP WITH ONE AND A WALKER. IV PATENT WITH NO REDNESS OR EDEMA. FALL PROTOCOL IN PLACE. CALL LIGHT WITHIN REACH.
--- NOTE | 2019-12-18 13:04 | NUR ---
AUTH WAS RECEIVED FOR PT TO GO TO [facility] THIS DAY. PT IS AWARE AND AGREEABLE. CHART COPY MADE. ORDERS TO BE FAXED. REPORT TO BE CALLED TO ASK FOR 3RD FLOOR NURSE. WHEELCHAIR VAN TRASNPORT ARRANGED FOR 1529. NO OTHER CM INTERVENTION INDICATED. CASE CLOSED.
[2019-12-18] MEDS ORDERED: LASIX 40 MG TAB40 M1 PO (13:16)
[2019-12-18] MEDS ORDERED: HYDROCODON-ACE1 EAC7 PO (13:16)
--- NOTE | 2019-12-21 08:12 | HC ---
[facility] [place] [address] CONSULTATION Name: ROEL GIPSON Room #: [address] [place] [address] IN M.R.#: [id number] Admission: 12/13/19 Attend Phys: Dontrell Joyce MD Discharge: 12/18/19 Date of : 58 Report #: [id number] THIS REPORT FOR: cc: Matias Mcclain MD, Amit J. MD Althoff, Jeffrey R. MD ~ CC: Matias Joyce DATE OF SERVICE: 12/14/2019 HISTORY OF PRESENT ILLNESS: The patient is a 59-year-old male patient with whom I am familiar from prior hospitalizations. He was admitted to the hospital with a left hip fracture, having undergone left hip hemiarthroplasty. I have been following him for ongoing wound care. I have been asked to see him in this regard. PAST MEDICAL HISTORY: Positive for hypertension, diabetes, hyperlipidemia, cirrhosis from hepatitis C, history of esophageal varices. FAMILY HISTORY: Positive for hypertension and diabetes. SOCIAL HISTORY: Negative for alcohol or tobacco use. MEDICATIONS: Include Zyvox, hydrocodone, acetaminophen, zolpidem, glipizide, furosemide, potassium, spironolactone, metformin, insulin, Silvadene. ALLERGIES: No known drug allergies. REVIEW OF SYSTEMS: CONSTITUTIONAL: The patient denies fever, chills or weight loss. NEUROLOGICAL: The patient denies focal weakness, numbness or tingling. EYES: The patient denies any visual changes, redness or drainage. ENT: The patient denies earache, nasal drainage, sore throat. CARDIOVASCULAR: The patient denies chest pain, palpitations or diaphoresis. PULMONARY: The patient denies cough or shortness of breath. GASTROINTESTINAL: The patient denies nausea, vomiting, diarrhea or abdominal pain. ORTHOPEDIC: The patient complains of significant pain in his left hip. Other systems in a 14-point review of systems are negative. PHYSICAL EXAMINATION: VITAL SIGNS: At this time include temperature 36.9, pulse 83, respiratory rate 18, blood pressure 186/81. GENERAL: This is a chronically ill-appearing male patient who appears to be in minimal distress. [facility] [address] [place] [address] CONSULTATION Name: ROEL GIPSON Room #: 443-P DIS IN M.R.#: [id number] Admission: 12/13/19 Attend Phys: Dontrell Joyce MD Discharge: 12/18/19 Date of : 58 Report #: [id number] HEENT: Head normocephalic. Nose and throat clear. NECK: Supple. LUNGS: Clear. ABDOMEN: Bowel sounds present. EXTREMITIES: Examination of the left hip demonstrates mild ecchymosis present and some tenderness. Limited range of motion. Hip bolster in place. Lower extremities demonstrate small venous type ulceration to the pretibial region on the left side. This appears much improved since his last hospitalization. The surgical wounds on his feet are now closed. CLINICAL IMPRESSION: 1. Venous type ulceration, left lower extremity, much improved. 2. Bilateral lower extremity lymphedema/venous insufficiency. 3. Diabetes mellitus. 4. Recent hip fracture, status post repair. RECOMMENDATIONS: At this point in time, we will continue with a bordered foam and Tubigrip for control of swelling to be changed on a daily basis. He will need PRAFO boots while in bed, weightbearing and ambulatory status per Orthopedics. Ongoing nutritional support. I appreciate being asked to see him in consultation. <ELECTRONICALLY SIGNED> By: Sanjiv Witt MD 12/21/19 0812 1537 180 Sanjiv Witt MD /nt
== END 2019-12-18 16:04 | DRG 469 ==
LOC: ER 16:34 → 4S 18:59 → EROBS 18:59 → 4S 19:00
PROVIDERS: Emergency Medicine; Orthopaedic Surgery Foot and Ankle Surgery; ADMIT Internal Medicine
PROC: 0SRS0JA Replacement of Left Hip Joint, Femoral Surface with Synthetic Substitute, Uncemented, Open Approach (ICD-10-PCS; principal; 2019-12-14)
PROC: 0W9G30Z Drainage of Peritoneal Cavity with Drainage Device, Percutaneous Approach (ICD-10-PCS; principal; 2019-12-14)
DX: S72.142A Displaced intertrochanteric fracture of left femur, initial encounter for closed fracture (principal); E43 Unspecified severe protein-calorie malnutrition; K76.6 Portal hypertension; I85.00 Esophageal varices without bleeding; L97.929 Non-pressure chronic ulcer of unspecified part of left lower leg with unspecified severity; R18.8 Other ascites; E78.00 Pure hypercholesterolemia, unspecified; D63.8 Anemia in other chronic diseases classified elsewhere; N50.89 Other specified disorders of the male genital organs; E11.40 Type 2 diabetes mellitus with diabetic neuropathy, unspecified; B18.2 Chronic viral hepatitis C; W18.39XA Other fall on same level, initial encounter; E78.5 Hyperlipidemia, unspecified; R74.0 Nonspecific elevation of levels of transaminase and lactic acid dehydrogenase [LDH]; D69.6 Thrombocytopenia, unspecified; D53.9 Nutritional anemia, unspecified; I10 Essential (primary) hypertension; Z79.82 Long term (current) use of aspirin; Z79.4 Long term (current) use of insulin; Y93.89 Activity, other specified; Y92.89 Other specified places as the place of occurrence of the external cause; Y99.8 Other external cause status; Z82.49 Family history of ischemic heart disease and other diseases of the circulatory system; Z83.3 Family history of diabetes mellitus; Z79.891 Long term (current) use of opiate analgesic; Z79.899 Other long term (current) drug therapy; Z89.422 Acquired absence of other left toe(s); Z68.28 Body mass index [BMI] 28.0-28.9, adult; Z91.14 Patient's other noncompliance with medication regimen
CPT/HCPCS: 10195; 50010; 50101; 50382; 50414; 50939; 51412; 53000; 56525; 56530; 56531; 57103; 57117; 62110; 62900; 70005

== ENCOUNTER → 2020-01-29 | Outpatient (CLI) | payer OTHER ==
[~2020-01-29] MED LIST changes: +LASIX 40 MG TAB40 M1 PO; +LEVEMIR100 UNIT/1 SUBQ
== END ==
LOC: HYPER 08:12
DX: I87.332 Chronic venous hypertension (idiopathic) with ulcer and inflammation of left lower extremity (principal); E11.622 Type 2 diabetes mellitus with other skin ulcer; L97.822 Non-pressure chronic ulcer of other part of left lower leg with fat layer exposed; E11.43 Type 2 diabetes mellitus with diabetic autonomic (poly)neuropathy; E11.65 Type 2 diabetes mellitus with hyperglycemia; E11.69 Type 2 diabetes mellitus with other specified complication; M86.9 Osteomyelitis, unspecified; R60.0 Localized edema; K74.60 Unspecified cirrhosis of liver; Z79.4 Long term (current) use of insulin; Z79.82 Long term (current) use of aspirin

== ENCOUNTER → 2020-02-05 | Outpatient (CLI) | payer OTHER | LOC: HYPER 08:55 | DX: E11.622 Type 2 diabetes mellitus with other skin ulcer (principal); I87.332 Chronic venous hypertension (idiopathic) with ulcer and inflammation of left lower extremity; L97.822 Non-pressure chronic ulcer of other part of left lower leg with fat layer exposed; L84 Corns and callosities; R60.0 Localized edema; E11.43 Type 2 diabetes mellitus with diabetic autonomic (poly)neuropathy; E11.65 Type 2 diabetes mellitus with hyperglycemia; E11.69 Type 2 diabetes mellitus with other specified complication; M86.8X8 Other osteomyelitis, other site; K74.60 Unspecified cirrhosis of liver; Z79.4 Long term (current) use of insulin; Z79.84 Long term (current) use of oral hypoglycemic drugs ==

== ENCOUNTER → 2020-02-23 | Outpatient (CLI) | payer OTHER | LOC: HYPER 09:55 | DX: E11.622 Type 2 diabetes mellitus with other skin ulcer (principal); I87.332 Chronic venous hypertension (idiopathic) with ulcer and inflammation of left lower extremity; L97.822 Non-pressure chronic ulcer of other part of left lower leg with fat layer exposed; L84 Corns and callosities; R60.0 Localized edema; E11.43 Type 2 diabetes mellitus with diabetic autonomic (poly)neuropathy; E11.65 Type 2 diabetes mellitus with hyperglycemia; E11.69 Type 2 diabetes mellitus with other specified complication; M86.8X8 Other osteomyelitis, other site; K74.60 Unspecified cirrhosis of liver; Z79.4 Long term (current) use of insulin; Z79.84 Long term (current) use of oral hypoglycemic drugs ==

== ENCOUNTER 2020-02-26 10:23 | Inpatient (IN) | payer OTHER ==
[2020-02-26] VITALS (13 sets, daily range): BP systolic 83–157; BP diastolic 50–79
[~2020-02-26] VITALS: Ht 177.8 cm; Wt 99.0 kg
[~2020-02-26 10:23] MED LIST changes: -LIPITOR10 MG PO
[2020-02-26] MEDS ORDERED: METFORMIN HCL500 M3 PO (10:53)
[2020-02-26] MEDS ORDERED: LIPITOR10 MG PO (10:55)
[2020-02-26 12:29] LABS: HEMATOCRIT 29.6 % (42.0-52.0); HEMOGLOBIN 10.4 gm/dL (14.0-18.0); MCH 29.4 pg (26.0-34.0); MCHC 35.1 g/dL (28.0-37.0); MCV 83.8 fL (80.0-100.0); RBC 3.53 mil/uL (4.50-6.00); RDW 17.2 % (10.5-14.5); WBC 7.8 thou/uL (4.0-11.0)
[2020-02-26 12:32] LABS: CALCIUM 7.7 mg/dL (8.5-10.1); CREATININE 1.1 mg/dL (0.7-1.3); POTASSIUM 3.4 mmol/L (3.5-5.1)
[2020-02-26 12:41] LABS: URINE BLOOD 2+ (Negative); URINE CLARITY CLEAR; URINE GLUCOSE-RANDOM* TRACE (Negative); URINE KETONES TRACE (Negative); URINE LEUKOCYTES-REFLEX NEGATIVE (Negative); URINE NITRITE-REFLEX NEGATIVE (Negative); URINE PROTEIN (DIPSTICK) 1+ (Negative); URINE UROBILINOGEN >= 8.0 E.U./dl (0.2-1.0)
[2020-02-26 12:45] LABS: URINE COLOR AMBER
[2020-02-26 12:47] LABS: ICTOTEST (BILI CONFIRMATORY) Negative (Negative); URINE BILIRUBIN NEGATIVE (Negative)
[2020-02-26 13:03] LABS: FINE GRANULAR CASTS 0-3 Few /LPF (None Seen); HYALINE CASTS 0-3 Few /LPF (None Seen); SQUAMOUS None Seen /LPF (0-3)
[2020-02-26 13:04] LABS: CRYSTALS None Seen /LPF (None Seen); URINE RBC 3-10 Few /HPF (0-2); URINE WBC-REFLEX 0-5 Rare /HPF (0-5)
[2020-02-26 13:05] LABS: BACTERIA-REFLEX 1-9 Few /HPF (None Seen)
--- NOTE | 2020-02-26 13:46 | NUR ---
ADMITTED FROM ER UNDER 'S CARE FOR L HIP I&D THIS AFTERNOON. SCHEDULE VERIFIED WITH CALE FROM PREOP THAT MD WILL DO PT'S CASE AFTER 1500 CASE. PT UPDATED ON PLAN. WRITTEN ORDERS ORDERED AND CARRIED OUT. PT AXOX4. L HIP PRESSURE DRESSING C,D,I NO BLOOD ON DRESSING.KEPT NPO AND IVF INITATED PER MD ORDER WHILE NPO. VSS. FSBS DONE. NO S/S ACUTE DISTRESS NOTED OR REPORTED AT THIS TIME. WILL CONT TO MONITOR FOR ANY CHANGES IN CONDITION.
--- NOTE | 2020-02-26 18:14 | NUR ---
PT LEFT FOR SURGERY AND CAME BACK. VSS. AWAKE AND ALERT. CLEAR LIQUID DIET STARTED. L HIP DRESSED WITH HEMOVAC. C/O PAIN. MED GIVEN PER MD ORDER. NO S/S ACUTE DISTRESS NOTED OR REPORTED AT THIS TIME. WILL CONT TO MONITOR FOR ANY CHANGES IN CONDITION.
[2020-02-27] VITALS: BP 102/60
[2020-02-27 03:45] VITALS: BP 88/50
[2020-02-27 07:57] VITALS: BP 103/62
--- NOTE | 2020-02-27 07:57 | NUR ---
PROGRESS PT A/O BUT DROWSY RATED PAIN TO LEFT HIP AN 8 GAVE 10 MG OXYCODONE PO WITH GOOD EFFECT. PT VOIDING PER URINAL LOOKING FORWARD TO WOLKING WITH PT/OT CONTINUE TO MONITOR.
--- NOTE | 2020-02-27 15:26 | NUR ---
ASSUMED CARE OF PT AT 0700. HE IS ALERT AND ORIENTED. VSSA/RA. NO COMPLAINTS AT THIS TIME. WANTS TO GET UP AND WALK SOME TODAY. PRN PAIN MEDS GIVEN ORDERED. BLOOD SUGARS HIGH TODAY. WILL MONITOR. PIV SL. HEMOVAC IN PLACE, DRESSING TO LEFT HIP IS C/D/I. PT WAS ABLE TO AMBULATE TO BATHROOM AND TO CHAIR WITH SBA AND WALKER. WILL CONTINUE TO MONITOR
[2020-02-27 16:46] VITALS: BP 95/56
[2020-02-27 20:20] VITALS: BP 103/59
[2020-02-28] VITALS (7 sets, daily range): BP systolic 91–133; BP diastolic 48–74
[2020-02-28 01:07] LABS: GLYCOHEMOGLOBIN (HGB A1C) 7.7 % (4.8-5.6)
--- NOTE | 2020-02-28 03:18 | NUR ---
ASSUMED PT CARE AROUND 1899. AXOX4. CALLS APPROPRIATELY FOR HELP. L HIP DRESSING C,D,I WITH HEMOVAC INTACT. HYPOTENSION AND HYPERGLYCEMIA TREATED PER CHAIR TRIMMER ORDER. UFO AT THIS TIME. NO S/S ACUTE DISTRESS NOTED OR REPORTED AT THIS TIME. WILL CONT TO MONITOR FOR ANY CHANGES IN CONDITION.
[2020-02-28 06:03] LABS: ABSOLUTE NEUTROPHILS 5.1 thou/uL (1.4-8.2); BASOPHILS 0.5 % (0.0-2.0); EOSINOPHILS 2.4 % (0.0-3.0); HEMATOCRIT 24.9 % (42.0-52.0); HEMOGLOBIN 8.8 gm/dL (14.0-18.0); LYMPHOCYTES 14.8 % (24.0-44.0); MCH 29.8 pg (26.0-34.0); MCHC 35.5 g/dL (28.0-37.0); MONOCYTES 9.2 % (1.0-8.0); PLATELET COUNT 267 thou/uL (150-400); POLYS 73.1 % (36.0-66.0); RBC 2.96 mil/uL (4.50-6.00)
[2020-02-28 09:31] LABS: HEMATOCRIT 26.2 % (42.0-52.0); HEMOGLOBIN 9.2 gm/dL (14.0-18.0)
--- NOTE | 2020-02-28 11:53 | NUR ---
Patient bled around 0900 after the vac was out. pressure administrated, presure dressing was applied. bleeding stopped. Dr. Jones has beeb reported. Hg stable, BP stable, patient no more bleeding so far.
--- NOTE | 2020-02-28 11:54 | NUR ---
The staff tried to reach out to Surgon: Earnest Gomez, to report about the bleeding this 9am., can not get hold of Dr. Gomez.
--- NOTE | 2020-02-28 19:47 | NUR ---
Patient had some mild blood drainage in the afternoon around 6pm, dressing changed. asymptomic. Patient got up with a walker to the bathroom, rested in the chair for most of the shift.
--- NOTE | 2020-02-29 02:09 | NUR ---
ASSUMED PT CARE AROUND 1914. AXOX4. CONTACT ISO MAINTAINED FOR ACTIVE MRSA. VSS. HYPERGLYCEMIA REPORTED TO WORKERS' COMPENSATION COMMISSIONER SAND CUTTER OPERATOR AND BEING TX PER WORKERS' COMPENSATION COMMISSIONER ORDER. L HIP DRESSING WAS WOOZING SEROSANGUINEOUS DRAINAGE. DRESSING CHANGED. NO S/S ACUTE DISTRESS NOTED OR REPORTED AT THIS TIME. WILL CONT TO MONITOR FOR ANY CHANGES IN CONDITION.
[2020-02-29 05:27] VITALS: BP 143/74
[2020-02-29 06:11] LABS: ABSOLUTE NEUTROPHILS 5.1 thou/uL (1.4-8.2); BASOPHILS 0.4 % (0.0-2.0); EOSINOPHILS 2.4 % (0.0-3.0); HEMOGLOBIN 8.5 gm/dL (14.0-18.0); LYMPHOCYTES 15.3 % (24.0-44.0); MCH 29.7 pg (26.0-34.0); MCHC 35.4 g/dL (28.0-37.0); MCV 83.9 fL (80.0-100.0); MONOCYTES 9.9 % (1.0-8.0); PLATELET COUNT 246 thou/uL (150-400); RBC 2.87 mil/uL (4.50-6.00); RDW 17.2 % (10.5-14.5); WBC 7.1 thou/uL (4.0-11.0)
[2020-02-29 08:56] VITALS: BP 132/74
--- NOTE | 2020-02-29 14:54 | HC ---
[facility] [place] [address] CONSULTATION Name: ROEL GIPSON Room #: [facility]- ADM IN M.R.#: [id number] Admission: 02/26/20 Attend Phys: Earnest Gomez MD Discharge: Date of : 58 Report #: [id number] THIS REPORT FOR: cc: Matias Mcclain MD, Amit J. MD Geha, Daniel J. MD ~ CC: Matias Gomez DATE OF SERVICE: 02/26/2020 INFECTIOUS DISEASE CONSULTATION REASON FOR CONSULTATION: I was asked to evaluate concerning left hip surgical site infection. HISTORY OF PRESENT ILLNESS: The patient is a 59-year-old with underlying cirrhosis and chronic venous stasis disease with peripheral edema who was seen in October with osteomyelitis of his left second toe. He required amputation. Postoperatively, ultimately healed his open wound. He then fell and fractured his left femoral neck in December of this year. Underwent ORIF without complication. He continues to have lower extremity edema below the waist. He follows up with his labor gang supervisor regarding his cirrhosis. No significant change in his treatment. He has had no fever, chills or sweats. Noticed increased swelling and discomfort in the lateral hip incision with spontaneous drainage of thin fluid. He noticed that this appeared to be under pressure, which flowed out of his incision. He was taken to surgery today where Dr. Gomez noticed large amount of drainage and fluid within the soft tissues that extended below the fascia. He did not feel that it tracked to the joint. I am awaiting cultures at this point. The patient was treated with cefazolin. He has had no fever, chills or sweats. He continues to have venous stasis disease to both lower extremities and venous stasis dermatitis predominant on the left leg. It is noted the repair of his left femoral neck fracture required a left hemiarthroplasty. His preoperative workup noticed hemoglobin of 10, white count was 7.8. ESR of 94, creatinine of 1. Liver function test normal. PAST MEDICAL HISTORY: Diabetes, cirrhosis, hypertension, MRSA infection of his left foot, status post amputation of left second toe. FAMILY HISTORY: Negative for tuberculosis. SOCIAL HISTORY: Nonsmoker. No current alcohol intake. ALLERGIES: None known. MEDICATIONS: As noted on his DEC, now on cefazolin. [address] [address] CONSULTATION Name: ROEL GIPSON Room #: 460[facility] IN M.R.#: [id number] Admission: 02/26/20 Attend Phys: Earnest Gomez MD Discharge: Date of : 58 Report #: [id number] REVIEW OF SYSTEMS: The patient denies any fever, chills or sweats. He has had no cough or sputum production. No nausea, vomiting or diarrhea. No dysuria or frequency. PHYSICAL EXAMINATION: VITAL SIGNS: He was afebrile and hemodynamically stable. GENERAL: He is alert and cooperative and pleasant, in no acute distress. He was appiah. EYES: Without scleral icterus. MOUTH: Without mucositis. NECK: Supple. LUNGS: Clear. HEART: Regular, without murmur. ABDOMEN: Soft, nontender with no hepatosplenomegaly or mass. EXTREMITIES: Lower extremities, the left hip incision was dressed and dry. He had 2+ edema below the waist. Venous stasis dermatitis changes to the left pretibial skin. LABORATORY STUDIES: Reviewed. MICROBIOLOGY: Reviewed. IMPRESSION: A 59-year-old with underlying cirrhosis and chronic lymphedema of his lower extremities, presents now with surgical site infection of his left hip, now 10 weeks post-hemiarthroplasty with deep surgical site infection. RECOMMENDATIONS: 1. Recommend continuing IV antibiotic therapy with vancomycin and ceftriaxone, pending culture results. The patient will go back first part of next week for a second debridement and closure. We will make adjustments in antibiotics, pending culture results. 2. Control edema as best we can. <ELECTRONICALLY SIGNED> By: Kan Berrios MD 02/29/20 1454 99 13 Kan Berrios MD /nt
[2020-02-29 15:58] VITALS: BP 139/73
[2020-02-29 20:58] VITALS: BP 159/80
[2020-03-01] VITALS (10 sets, daily range): BP systolic 102–168; BP diastolic 76–96
[2020-03-01 05:55] LABS: ABSOLUTE NEUTROPHILS 7.9 thou/uL (1.4-8.2); BASOPHILS 0.2 % (0.0-2.0); EOSINOPHILS 0.3 % (0.0-3.0); HEMATOCRIT 25.7 % (42.0-52.0); LYMPHOCYTES 6.7 % (24.0-44.0); MCH 29.5 pg (26.0-34.0); MCHC 34.9 g/dL (28.0-37.0); MCV 84.6 fL (80.0-100.0); MONOCYTES 3.6 % (1.0-8.0); PLATELET COUNT 225 thou/uL (150-400); POLYS 89.2 % (36.0-66.0); RBC 3.03 mil/uL (4.50-6.00); RDW 17.3 % (10.5-14.5); WBC 8.9 thou/uL (4.0-11.0)
[2020-03-01 06:13] LABS: CALCIUM 7.9 mg/dL (8.5-10.1); POTASSIUM 4.6 mmol/L (3.5-5.1); TOTAL BILIRUBIN 0.8 mg/dL (<0.1-1.0); TOTAL PROTEIN 7.6 g/dL (6.4-8.2)
--- NOTE | 2020-03-01 06:35 | NUR ---
patient aox4 makes needs known. patient left hip surgical site dressing was saturated with serous serosanguinous, dressing changed x1. patient has unsteady gaits, patient encouraged to use the call light.patient is calm and cooperative with care and meds.fall precaution in place.patient in bed asleep at this time breathing regular and unlaboured.
--- NOTE | 2020-03-01 09:33 | NUR ---
ASSUMED CARE AT 0700. PT ALERT AND ORIENTED. WAITING FOR SURGERY TODAY. VSSA/RA. NO COMPLAINTS. NPO. BLOOD SUGARS HIGH. PIV WITHOUT ISSUES. DRESSING LEAKING. CHANGED THIS AM. PT ABLE TO WALK TO BATHROOM WITH WALKER. BM THIS AM. WILL CONTINUE TO MONITOR
[2020-03-01 10:56] LABS: INR 1.2; PROTIME 12.2 Seconds (9.3-11.4)
--- NOTE | 2020-03-01 15:20 | O ---
[facility] [place] [address] OPERATIVE REPORT Name: ROEL GIPSON Room #: 463- ADM IN M.R.#: [id number] Admission: 02/26/20 Attend Phys: Earnest Gomez MD Discharge: Date of : 58 Report #: [id number] THIS REPORT FOR: cc: Matias Mcclain MD, Amit J. MD Kneidel, Matthew T. MD ~ CC: Matias Gomez DATE OF SERVICE: 02/26/2020 PREOPERATIVE DIAGNOSIS: Left hip abscess. POSTOPERATIVE DIAGNOSIS: Left hip abscess. PROCEDURE: Left hip irrigation and debridement, deep to the fascia. SURGEON: Earnest Gomez MD BORDER INSPECTOR: Elisa Navarro. ANESTHESIA: General. ESTIMATED BLOOD LOSS: 50 mL. DRAINS: One Hemovac drain was placed. COMPLICATIONS: There were no complications. DESCRIPTION OF PROCEDURE: The patient brought to the operating room, where he was placed under general anesthesia. Once under adequate general anesthesia, his left hip was prepped and draped in a sterile manner. A 5 cm incision was made to allow decompression of the abscess. There was abundant purulence. This was cultured. The purulence appeared to extended laterally and posteriorly and soft tissue of the hip and was deep to the fascia, did not appear to be enter the joint. At this point, then the wound was irrigated copiously with pulsatile lavage, normal saline solution. Six liters of normal saline were run through the wound. The wound was then closed over a medium Hemovac drain with 0 Prolene in the fascial layer, 2-0 PDS in the subcutaneous tissues and patrick were used for the skin. The wound was dressed with Xeroform, 4 x 4s, and sterile soft compressive dressing was placed. There were no complications from the [facility] [address] [place] [address] OPERATIVE REPORT Name: GIPSON,ROEL Room #: 463-P [facility] IN .R.#: [id number] Admission: 02/26/20 Attend Phys: Earnest Gomez MD Discharge: Date of : 58 Report #: [id number] procedure. The patient tolerated the procedure well and went to the recovery room without incident. <ELECTRONICALLY SIGNED> By: Earnest Gomez MD 03/01/20 1520 1631 1709 Earnest Gomez MD /nt
[2020-03-02 00:54] VITALS: BP 146/86
--- NOTE | 2020-03-02 04:26 | NUR ---
ASSUMED CARE AT 1900, ASSESSMENT COMPLETED. PT REPORTS PAIN BETTER CONTROLLED AFTER SHIFT CHANGE MEDS GIVEN, HAS NOT ASKED FOR MORE OVERNIGHT. NO NAUSEA OR SOB. DRESSING C/D/I; EMPTIED 100 ML OF BLOOD FROM HEMOVAC AT 1999; THIGH HAS TIGHT EDEMA. ENCOURAGED PT TO DRINK PLENTY OF LIQUIDS SINCE HE WASN'T GETTING ANY IVF. NPO AT MIDNIGHT FOR PARACENTESIS IN AM. NO OTHER CONCERNS, WILL CONTINUE TO MONITOR.
[2020-03-02 05:56] VITALS: BP 119/73
[2020-03-02 07:33] VITALS: BP 117/66
[2020-03-02 15:22] VITALS: BP 117/53
--- NOTE | 2020-03-02 16:21 | NUR ---
PT A&OX4, AMBULATES WITH WALKER, GAIT BELT AND STAND BY ASSIST. PARACENTESIS COMPLETED. DRSG TO L HIP IS C/D/I, HEMOVAC INTACT, 85 MLS EMPTIED. PT SITTING IN CHAIR AT THIS TIME TOLERATING PO WELL.CALL LIGHT W/I REACH, CHAIR ALARM ON.
--- NOTE | 2020-03-02 16:40 | NUR ---
PT ADMITTED RELATED TO L HIP SURGICAL SITE DRAINAGE; S/P I & D. CM REVIEWED CHART AND SPOKE WITH CARE TEAM. CM CALLED AND SPOKE WITH PT HE APPEARES TO BE A&O X4. CM ROLE INTRODUCED. PT INDICATD HE LIVES WITH A FRIEND MONALISA SPENCE IN A HOUSE WITH 2 STEPS TO ENTER AND NO STEPS INSIDE. PT STATED HE HAD BEEN INDEPENDENT WITH ADLS AND USING A CANE DRY WALL PLASTERER. PT HAD BEEN ON SERVICE WITH [facility] DRY WALL PLASTERER. PT RECEPTIVE TO POST ACUTE OR UPON DC. CM TO FOLLOW INDICATED WITH DC PLANNING.
[2020-03-02 20:49] VITALS: BP 111/59
[2020-03-03 00:13] VITALS: BP 124/64
--- NOTE | 2020-03-03 04:02 | NUR ---
ASSUMED PT CARE AROUND 1930. AXOX4. CALLS APPROPRIATELY FOR HELP. VSS. DENIES PAIN. L HIP DRESSING C,D,I WITH HEMOVAC DRAINING. NO S/S ACUTE DISTRESS NOTED OR REPORTED AT THIS TIME. WILL CONT TO MONITOR FOR ANY CHANGES IN CONDITION.
[2020-03-03 05:42] VITALS: BP 133/63
[2020-03-03 07:52] VITALS: BP 127/65
[2020-03-03 15:48] VITALS: BP 122/64
--- NOTE | 2020-03-03 16:21 | NUR ---
PT RECOMMENDING POST ACUTE CARE STAY. [facility] ASSESSED AND INDIACTED THAT PT COULD BE GOOD CANDIDATE LONG HE HAD A PLAN IN PLACE FOR REMAINDER OF IV ABX AFTER POSSIBLE 2 WEEKS OF REHAB. CM SPOKE WITH PT ABOUT HOME INFUSION AND OP INFUSION HE IS ON DAILY VANC AT THIS TIME. PT INDICATED HE WOULD WANT TO COME TO OP INFUSION CLINIC DAILY AFTER REHAB TO FINISH ABX TREATMENT AND THAT EITHER GI[facility] OR [facility] FRIENDS DOWN THE STREET WOULD BE ABLE TO DRIVE HIM. CM NOTIFIED [facility] LIAISON AND SHE IS GOING TO CHECK TO SEE IF WE NEED AUTH FROM PT'S INSURANCE FOR HIM TO ADMIT TO [facility]. ANTICIPATE LIKELY DC TO [facility] WHEN APPROPRIATE. CM TO FOLLOW INDICATED WITH DC PLANNING.
--- NOTE | 2020-03-03 18:53 | NUR ---
PT A&OX4, VSS, PAIN IN HIP. PAIN MEDICATION GIVEN. HEMOVAC REMOVED BY ORTHO. IV REMAINS PATENT IN LEFT FOREARM. PATIENT PARTICIPATED IN PT. UP 1 ASSIST TO BATHROOM. NO SIGNS OF DISTRESS. WILL CONTINUE TO MONITOR.
[2020-03-03 21:54] VITALS: BP 142/74
--- NOTE | 2020-03-04 08:19 | NUR ---
progress pt a/o x4 scrotum and thigh swollen, some serous drainage weeping from leg hemovac site and by incision cleansed with saline and covered with 4x4's and abd's secured with mepilex tape good weight bearing reinforced hip precautions pt states hes getting in to the hang of all the precautions and feels pretty good.
[2020-03-04 09:22] VITALS: BP 138/73
--- NOTE | 2020-03-04 09:46 | NUR ---
Nutrition: pt seen for LOS. Admit with Left hip surgical infection, S/P I&D and hardware exchange. Hemovac in place. Also with venous stasis dermatitis to Bilateral lower extremities. Hx DM. BG 153-164. Recent A1C 7.7, improved from 8.5 in June. Pt eating 75-100% of meals on carb controlled diet and voicese no questions/concerns for RD. Agreed to one glucerna daily to assist with wound healing. Plan likely rehab transfer prior to home. Low risk.
--- NOTE | 2020-03-04 13:52 | NUR ---
[facility] HAD ACCEPTED PT AND RECIEVED INSURANCE AUTH. CARE TEAM INDICATED THAT PT WILL BE MEDICALLY STABLE TO DC TO [facility] TOMORROW Saturday03/05/20. PT TO DO OP INFUSION HERE AT [facility] STATED HE HAS TWO FRIENDS WHO ARE ABLE TO PROVIDE TRANSPORT AFTER REHAB CM FAXED REFERRAL TO OP INFUSION CLINIC TO NOTIFY THEM OF PT'S EVENTUAL NEED FOR TREATMENT AFTER ACUTE REHAB. PT IS AWARE AND AGREEABLE. REPORT TO BE CALLED TO . NO OTHER CM INTERVENTION INDICATED. CASE CLOSED.
[2020-03-04 15:18] VITALS: BP 134/67
--- NOTE | 2020-03-04 17:49 | NUR ---
PATIENT HAS BEEN ACCEPTED FOR [facility] ACUTE REHAB STAY. POSSIBLE ADMISSION OVER WEEKEND. MARI IS MANAGER SHIFT MINIATURE SET DESIGNER. SHE CAN BE REACHED ON MANAGER SHIFT CELL PHONE - [phone]. PLEASE CONTACT MARI IF PATIENT IS READY TO BE DISCHARGED FROM ACUTE HOSPITAL AND ADMITTED TO [facility] OVER WEEKEND OF APRIL 05. THANK YOU FOR THIS REFERRAL.
--- NOTE | 2020-03-04 18:35 | HC ---
[facility] [place] [address] CONSULTATION Name: ROEL GIPSON Room #: 3- ADM IN M.R.#: [id number] Admission: 02/26/20 Attend Phys: Earnest Gomez MD Discharge: Date of : 58 Report #: [id number] THIS REPORT FOR: cc: Matias Mcclain MD, Amit J. MD Althoff, Jeffrey R. MD ~ CC: Matias Gomez DATE OF SERVICE: 03/02/2020 CHIEF COMPLAINT: Left lower extremity ulceration. HISTORY OF PRESENT ILLNESS: This is a 59-year-old male patient with whom I am familiar from both a surgical wound to his left foot and venous ulceration to his left lower leg. He was admitted to the hospital with increasing pain in his left hip. He has undergone left hip irrigation and debridement on 02/26/2020 and has undergone left hip irrigation and debridement with implant exchange on 03/01/2020. I have been asked to see him with regard to wound care. He denies significant pain in his hip or lower leg. PAST MEDICAL HISTORY: Positive for diabetes mellitus, cirrhosis, hypertension, cellulitis of left second toe amputation and venous ulcers of the left lower extremity with prior cellulitis. CURRENT MEDICATIONS: Include lisinopril, insulin, metformin, atorvastatin, glipizide, hydrocodone, rivaroxaban, fentanyl, gabapentin. ALLERGIES: No known drug allergies. SOCIAL HISTORY: Negative for current alcohol or tobacco use. FAMILY HISTORY: Noncontributory. REVIEW OF SYSTEMS: CONSTITUTIONAL: The patient denies fever, chills or weight loss. NEUROLOGICAL: The patient denies focal weakness, numbness or tingling. EYES: The patient denies any visual changes, redness or drainage. ENT: The patient denies earache, nasal drainage, sore throat. CARDIOVASCULAR: The patient denies chest pain, palpitations or diaphoresis. PULMONARY: The patient denies cough or shortness of breath. GASTROINTESTINAL: The patient denies nausea, vomiting, diarrhea or abdominal pain. ORTHOPEDIC: The patient does complain of some pain in his left hip following surgery, but states he has pretty good range of motion and has not started walking yet. [facility] [address] [place] [address] CONSULTATION Name: ROEL GIPSON Room #: 463-P [facility] IN M.R.#: [id number] Admission: 02/26/20 Attend Phys: Earnest Gomez MD Discharge: Date of : 58 Report #: [id number] GENITOURINARY: The patient denies frequency or urgency of urination. Denies dysuria. ENDOCRINE: The patient denies heat or cold intolerance, polydipsia, polyphagia or polyuria. Other systems in a 14-point review of systems are negative. PHYSICAL EXAMINATION: VITAL SIGNS: At this time include temperature 37.0, pulse 107, respiratory rate 18, blood pressure 117/66. GENERAL: This is a well-developed, well-nourished male patient who appears to be in no distress. HEENT: Head normocephalic. Nose and throat are clear. NECK: Supple. LUNGS: Clear. HEART: Regular. ABDOMEN: Soft. Bowel sounds present. EXTREMITIES: Examination of the lower extremities demonstrates surgical dressing in place with 2 MADDY drains involving the left hip area with a small amount of blood in each bulb. There is some evidence of venous dermatitis in the left leg. Most areas of ulceration have closed. The left second toe was also closed. LABORATORY DATA: Include white blood cell count 8.9 with a hemoglobin of 9.0. Sodium 132, potassium 4.6, chloride 101, CO2 of 25, BUN 22, creatinine 1.0, glucose 278. Albumin is 2.0. CLINICAL IMPRESSION: 1. Venous dermatitis, bilateral lower extremities, left greater than right. 2. History of left second toe amputation site, now well healed. 3. History of venous ulcer of the left lower leg, now mostly closed. 4. Type 2 diabetes mellitus. 5. Surgical site infection of the left hip following hemiarthroplasty, status post hardware exchange. RECOMMENDATIONS: At this point in time, we will recommend AmLactin lotion to bilateral lower extremities, Tubigrip stockings for compression. Orthopedic Surgery is managing his surgical incision. He is on intravenous antibiotic therapy per Infectious Disease. Recommend continuation of current medications and medical management of diabetes. I appreciate being asked to see him in consultation. <ELECTRONICALLY SIGNED> By: Sanjiv Witt MD 03/04/20 [id number] [id number] Sanjiv Witt MD /nt
--- NOTE | 2020-03-04 20:08 | NUR ---
Assumed pt care this am, vs stable. Blood sugar checks done medicatiosn given as per emar. Swelling of the scrotum and legs have been noted, informed Dr. Capps diuretics given. Dressing c/d/i, pain managed iwth medications. POC followed with no signs or verbalizatuions of distress noted.
[2020-03-04 20:28] VITALS: BP 125/69
--- NOTE | 2020-03-05 04:37 | NUR ---
ASSUMED PT CARE AROUND 193. AXOX4. HS FSBS 92. CALLED NORM WEBER ROUGE PRESSER AND ASKED ABOUT 28UNIT INSULIN GLARGINE. PER RADIO TELEVISION TECHNICAL DIRECTOR AFTER REVEIWING TREND, OK TO GIVE. L HIP DRESSING BECAME LOOSE, ASK PT TO GO BACK TO BED FOR DRESSING CHANGE, PT DECLINED TO GO BACK TO BED. RENDERED WOUND CARE AT BEST ABILITY. PT REFUSED TO SLEEP IN BED D/T SCROTAL SWELLING. VSS. NO S/S ACUTE DISTRESS NOTED OR REPORTED AT THIS TIME. WILL CONT TO MOTNITOR FOR ANY CHANGES IN CONDITION.
[2020-03-05 05:38] LABS: ABSOLUTE NEUTROPHILS 6.3 thou/uL (1.4-8.2); BASOPHILS 0.4 % (0.0-2.0); EOSINOPHILS 2.6 % (0.0-3.0); HEMOGLOBIN 6.8 gm/dL (14.0-18.0); LYMPHOCYTES 13.9 % (24.0-44.0); MCH 29.8 pg (26.0-34.0); MCHC 34.8 g/dL (28.0-37.0); MCV 85.5 fL (80.0-100.0); MONOCYTES 10.4 % (1.0-8.0); PLATELET COUNT 207 thou/uL (150-400); POLYS 72.7 % (36.0-66.0); RBC 2.29 mil/uL (4.50-6.00); RDW 19.1 % (10.5-14.5); WBC 8.6 thou/uL (4.0-11.0)
[2020-03-05 05:43] LABS: HEMATOCRIT 19.6 % (42.0-52.0)
[2020-03-05 06:01] LABS: CALCIUM 7.4 mg/dL (8.5-10.1); CREATININE 2.8 mg/dL (0.7-1.3); POTASSIUM 5.3 mmol/L (3.5-5.1)
--- NOTE | 2020-03-05 09:13 | O ---
[facility] [place] [address] OPERATIVE REPORT Name: ROEL GIPSON Room #: 463- ADM IN M.R.#: [id number] Admission: 02/26/20 Attend Phys: Earnest Gomez MD Discharge: Date of : 58 Report #: [id number] THIS REPORT FOR: cc: Matias Mcclain MD, Amit J. MD Kneidel, Matthew T. MD ~ CC: Matias Gomez DATE OF SERVICE: 03/01/2020 PREOPERATIVE DIAGNOSIS: Left septic hip. POSTOPERATIVE DIAGNOSIS: Left septic hip. PROCEDURE: Left hip irrigation and debridement with implant exchange of the femoral head. SURGEON: Dr. Earnest Gomez. GIANT TIRE REPAIRER: Elisa Navarro. ANESTHESIA: General. ESTIMATED BLOOD LOSS: 400 mL. DRAINS: One Hemovac drain was placed. COMPLICATIONS: There were no complications. DESCRIPTION OF PROCEDURE: The patient brought to the operating room where he was placed under general anesthesia. Once under adequate general anesthesia, he was placed into a lateral decubitus position on the operative table. The patient's previous scar was then opened and extended both proximally and distally [address] There was purulence at the incision site. Dissection was carried down to the tensor fascia, which was then incised facilitating the posterior exposure of the hip. The patient's previous sutures were removed at the hip joint in the capsule and in the piriformis. The femoral neck and head was exposed upon opening the joint capsule. The hip itself was then dislocated and the femoral head was then removed utilizing a mallet and an impactor. Pulsatile lavage was then utilized to irrigate the joint. Two large bags were run through the joint as well as on the femoral neck. An unipolar 50 mm stem was then placed and subsequently the joint was reduced. Pulsatile lavage was then again used to irrigate the joint as well as the rest of the wound. The wound was then closed in layers with #1 Prolene in the capsular layer and then the piriformis, #1 Prolene in the tensor fascia layer and 2-0 PDS in the [facility] [address] [place] [address] OPERATIVE REPORT Name: GIPSON,ROEL Room #: 463-P [facility] IN M.R.#: [id number] Admission: 02/26/20 Attend Phys: Earnest Gomez MD Discharge: Date of : 58 Report #: [id number] subcutaneous tissues. [place] were used for the skin. Hemovac drain had been placed prior to wound closure. The wound was dressed with Xeroform, 4 x 4s, and sterile soft compressive dressing was placed. There were no complications from the procedure. The patient tolerated the procedure well and went to the recovery room without incident. <ELECTRONICALLY SIGNED> By: Earnest Gomez MD 03/05/20 0913 [id number] Earnest Gomez MD /nt
[2020-03-05 12:52] VITALS: BP 117/63; BP 119/72
[2020-03-05 16:21] VITALS: BP 117/63
[2020-03-05 18:44] LABS: HEMATOCRIT 23.7 % (42.0-52.0); HEMOGLOBIN 8.3 gm/dL (14.0-18.0)
--- NOTE | 2020-03-05 19:25 | NUR ---
Assumed pt care at 7am.Pt up in chair most of the time.Assessment completed. Pt tolerated diet and meds.Dr Capps and Anabel here,order noted.Pt had 1 unit of prbc today.H&h will be done this evening.Po pain meds given x as ordered with relief.Report off to gregorio preston.
[2020-03-05 19:49] VITALS: BP 131/65
[2020-03-05 22:44] LABS: URINE BILIRUBIN NEGATIVE (Negative); URINE BLOOD 1+ (Negative); URINE CLARITY CLEAR; URINE COLOR YELLOW; URINE GLUCOSE-RANDOM* NEGATIVE (Negative); URINE KETONES NEGATIVE (Negative); URINE LEUKOCYTES NEGATIVE (Negative); URINE NITRITE NEGATIVE (Negative); URINE PROTEIN (DIPSTICK) NEGATIVE (Negative); URINE SPECIFIC GRAVITY 1.015 (1.005-1.035); URINE UROBILINOGEN 0.2 E.U./dl (0.2-1.0)
[2020-03-05 22:49] LABS: PROT/CREAT RATIO 0.2; URINE PROTEIN-RANDOM* 6.5 mg/dL (<11.9)
[2020-03-05 23:26] LABS: BACTERIA 1-9 Few /HPF (None Seen); CASTS None Seen /LPF (None Seen); CRYSTALS None Seen /LPF (None Seen); MUCUS 0-3 Light strn/LPF (None Seen); SQUAMOUS 0-3 Few /LPF (0-3); URINE RBC 3-10 Few /HPF (0-2); URINE WBC 0-5 Rare /HPF (0-5)
[2020-03-06 05:49] LABS: ABSOLUTE NEUTROPHILS 6.1 thou/uL (1.4-8.2); BASOPHILS 0.5 % (0.0-2.0); EOSINOPHILS 2.5 % (0.0-3.0); HEMATOCRIT 22.4 % (42.0-52.0); HEMOGLOBIN 7.7 gm/dL (14.0-18.0); LYMPHOCYTES 11.7 % (24.0-44.0); MCH 29.7 pg (26.0-34.0); MCHC 34.5 g/dL (28.0-37.0); MONOCYTES 8.8 % (1.0-8.0); PLATELET COUNT 201 thou/uL (150-400); POLYS 76.5 % (36.0-66.0); RDW 17.9 % (10.5-14.5)
[2020-03-06 05:59] LABS: INR 1.2
--- NOTE | 2020-03-06 06:00 | NUR ---
Pt. rested quietly at intervals during the night when checked on during frequent rounds. Pt. c/o left hip pain and was given po pain meds (see emar) with some relief noted. Dressing to left hip was saturated and was changed as ordered this shift. Up to the comode with assist of 2 persons and walker.
[2020-03-06 06:30] LABS: ALBUMIN 1.7 g/dL (3.4-5.0); CALCIUM 7.6 mg/dL (8.5-10.1); CREATININE 2.9 mg/dL (0.7-1.3); MAGNESIUM 2.2 mg/dL (1.8-2.4); TOTAL BILIRUBIN 0.9 mg/dL (0.2-1.0)
[2020-03-06 06:32] LABS: POTASSIUM 5.5 mmol/L (3.5-5.1)
[2020-03-06 08:00] VITALS: BP 112/59
--- NOTE | 2020-03-06 11:30 | NUR ---
Assumed pt care at 7am.Pt up in chair resting without c/o.Assessment completed.vss.Am meds given with breakfast and well tolerated.Dr Capps and Anabel here,order noted.Urinary cath inserted without difficulty.Pt has bowel movement this shift.Pericare given and drsg change done to left hip as ordered.Will continue to monitor.
[2020-03-06 20:03] VITALS: BP 119/56
--- NOTE | 2020-03-07 03:54 | NUR ---
patient left hip surgical site dressing is c/d/i. patient need maximum assistance with adl, bed mobility, transfer and toileting. fall precaution in place. call light and personal belonging within reach. patient in the recliner asleep breathing regular and unlaboured.
[2020-03-07 03:59] VITALS: BP 105/62
[2020-03-07 05:31] LABS: HEMATOCRIT 20.3 % (42.0-52.0); HEMOGLOBIN 7.2 gm/dL (14.0-18.0); MCHC 35.4 g/dL (28.0-37.0); MCV 84.8 fL (80.0-100.0); RBC 2.4 mil/uL (4.50-6.00); RDW 17.9 % (10.5-14.5); WBC 7.7 thou/uL (4.0-11.0)
[2020-03-07 05:38] LABS: ALBUMIN 1.7 g/dL (3.4-5.0); CALCIUM 7.2 mg/dL (8.5-10.1); CREATININE 3.2 mg/dL (0.7-1.3); TOTAL BILIRUBIN 0.7 mg/dL (0.2-1.0); TOTAL PROTEIN 6.5 g/dL (6.4-8.2)
[2020-03-07 05:39] LABS: POTASSIUM 5.3 mmol/L (3.5-5.1)
--- NOTE | 2020-03-07 07:18 | HC ---
[facility] [place] [address] CONSULTATION Name: ROEL GIPSON Room #: 3- ADM IN M.R.#: [id number] Admission: 02/26/20 Attend Phys: Eranest Gomez MD Discharge: Date of : 58 Report #: [id number] THIS REPORT FOR: cc: Matias Mcclain MD, Amit J. MD Neufeld, Timothy K. MD ~ CC: Matias Gomez DATE OF SERVICE: 03/05/2020 NEPHROLOGY CONSULTATION REASON FOR CONSULTATION: Acute kidney injury. HISTORY OF PRESENT ILLNESS: This is a 59-year-old male with a rather complex medical history. He was admitted 8 days ago with an infection of a surgical side of his left hip. He had had a left femoral neck fracture in 12/2019. He underwent surgical correction of that with an ORIF. He came in now with drainage from that incision and has grown MRSA from that wound. He had had previous MRSA before with a left second toe amputation. That was an osteomyelitis, also with MRSA, which had been treated. He is unaware of fevers. He has had massive bilateral lower extremity edema. He had a repeat debridement, irrigation and implant exchange done 4 days ago on 03/01/2020. I have reviewed the vital signs around that time and he was not frankly hypotensive. He is continued on antibiotics and that will be discussed below. On March 01, he had a creatinine level of 1.0. Labs were checked again this morning on 03/05/2020 and his creatinine level was up to 2.8 prompting his Nephrology consultation. The patient has longstanding diabetes mellitus. He has a history of diabetic nephropathy. He has been documented previously to have proteinuria. He is followed by Dr. Matias Mcclain who is a aircraft technician at [employer]. He is chronically on some lisinopril usually at 20 mg daily. That has been held during this hospitalization. We do not have a quantification of that proteinuria. The patient knows of no other renal problems. He also has a significant history of cirrhosis. The cirrhosis dates back about 10 years. He was found to have hepatitis C. Five years ago or so, he received the antiviral therapy for the hepatitis C and was cured of that. With his cirrhosis he has ascites. He has required recurring paracenteses. He has also been documented to have esophageal varices. He last had a paracentesis on March 02, which was the day after his hip surgery, 4 liters were removed. Prior to that, he had paracentesis done in December, which was around the time of his original hip surgery. The patient tells me today he has had increasing amounts of edema of both lower extremities as well as edema of his scrotum and also continuing increase in ascites. [facility] [address] [place] [address] CONSULTATION Name: ROEL GIPSON Room #: 463-P ADM IN M.R.#: [id number] Admission: 02/26/20 Attend Phys: Earnest Gomez MD Discharge: Date of : 58 Report #: [id number] For treatment of his MRSA, he has been on vancomycin. It has been in a dose of 1000 mg twice daily, more recently decreased to once daily. He had an increase in levels and as of today that has been stopped. He was running levels in the mid teen range, at 16 and 17 earlier in the week, but it was up to 27 two days ago that is when his dose was decreased and now finally stopped as noted above. Since that time, he has gotten daptomycin. The patient tells me he is able to void urine easily at least as far as emptying his bladder. He has so much scrotal swelling that he has difficulty collecting the amount of urine. ADDITIONAL MEDICAL HISTORY: He has longstanding diabetes dating back 20 years. He has had the MRSA and with osteomyelitis in the left toe requiring amputation; that amputation was in June 2019. He has also had a left pretibial wound, which is usp ulcer that is finally improved dramatically with local care. He had hepatitis C and cirrhosis as noted above. He has esophageal varices, previously banded. He has had prior knee surgeries to both the right and left knee, but no hardware involved with that. He knows of no prior cardiac nor pulmonary disease. At home, he was on metformin, glipizide, lisinopril 20 mg daily and atorvastatin. Currently, he is on the daptomycin, which was just started with the cessation of the vancomycin. He is getting some insulin, Xarelto 10 mg daily, spironolactone 50 mg b.i.d. and furosemide 40 mg daily, pantoprazole 40 mg b.i.d. ALLERGIES: No known medical allergies. FAMILY HISTORY: Negative for renal disease. SOCIAL HISTORY: The patient is single, lives in [place], [place]. He is medically disabled. REVIEW OF SYSTEMS: Very concerned about the amount of edema, both of his lower extremities and his scrotum. He denies dyspnea or cough at this time. No chest pain. Denies nausea, vomiting, diarrhea, hematemesis, hematochezia, nor melena. His pain has been fairly well controlled. He is able to empty his bladder, although he has trouble collecting any urine sample due to his scrotal edema. No recent visual or hearing change. PHYSICAL EXAMINATION: GENERAL: He is dramatically edematous 59-year-old male in no acute distress. VITAL SIGNS: Blood pressure 125/69, heart rate 109, respiratory rate 17, oxygen saturation 95%, temperature 98.3 this morning, it was 100.2 last evening. HEENT: Shows pupils are equal and reactive. Sclerae nonicteric. Oral mucosa is moist. NECK: Supple without adenopathy, thyromegaly, JVD or bruit. [facility] [address] [place] [address] CONSULTATION Name: ROEL GIPSON Room #: [address] [place] [address] IN .R.#: [id number] Admission: 02/26/20 Attend Phys: Earnest Gomez MD Discharge: Date of : 58 Report #: [id number] CHEST: Clear bilaterally. CARDIOVASCULAR: Heart has a regular rate and rhythm. I heard no rub and no murmur. ABDOMEN: Very protuberant. He has a fluid wave consistent with ascites. Unable to palpate the liver. Unable to tell if the bladder is enlarged at all. He has 4+ scrotal edema. EXTREMITIES: He has 4+ bilateral lower extremity edema. The ulcer on the left pretibial area appears to be healed. I did not undress the drainage site from his operative infection on his left hip. He has 1+ pedal pulses. He has no upper extremity edema. LABORATORY DATA: Sodium 130, potassium 5.3, chloride 100, bicarbonate 26, BUN 36, creatinine 2.8, calcium 7.4 recently. Total protein 7.6, albumin 2.0. Last INR 1.2, hemoglobin 6.8 today and being 9.0 four days ago, hematocrit 19.6, white count 8.6, platelets 207,000. Differential on the white count, 73 neutrophils, 14 lymphs, 10 monos, 2 eosinophils. No urinalysis since admission on February 25, at that time, specific gravity of 1.020, pH 6.0 with 1+ protein, trace ketones with some hyaline casts, granular casts and a few red cells. ASSESSMENT: 1. Acute kidney injury. Complex situation. He has underlying diabetic nephropathy with proteinuria, but otherwise normal creatinine levels previously. He has had multiple surgeries during this hospitalization. Last week, he was somewhat hypotensive, but he has not been hypotensive since 4 days ago when he had the creatinine level of 1.0. He has been passing urine. We will check some urine studies. Blood pressure is holding okay. We will see if he has any prerenal component. He had multiple contributing factors. He certainly has underlying diabetic nephropathy. He has had a history of proteinuria. He has been off his ROSELYN inhibitor, which at this point is appropriate. He has cirrhosis and could well have some hepatorenal component. It does not look like he has been oliguric though. He has been receiving high doses of vancomycin, but his levels were medium and then jf and now his dose was decreased and then stopped eventually. He has no peripheral eosinophilia to suggest that he would have an acute interstitial nephritis from the vancomycin. It has been stopped. He has been switched to daptomycin. His ascites is tense enough I would be concerned about the potential of some increased intra-abdominal pressure. Nevertheless, this all appeared to occur after he had his last paracentesis, which was the day after his hip surgery. He is not floridly septic at this time in spite of the MRSA. He has had 1 low-grade fever, but not dramatically high fevers nor hemodynamic instability. Currently, I would favor stopping his diuretics, allowing him to reach a mid-range blood pressure. We will check some urine studies including fractional excretion of sodium and urine protein creatinine ratio. We will repeat labs. If he remains hemodynamically okay we can try a small amount of diuretics, but I do not want him on diuretics at this time. If he has true hepatorenal syndrome we would certainly want to back off the loop diuretic at this point. [facility] [address] [place] [address] CONSULTATION Name: ROEL GIPSON Room #: 463-P ADM IN M.R.#: [id number] Admission: 02/26/20 Attend Phys: Earnest Gomez MD Discharge: Date of : 58 Report #: [id number] I have explained all this to the patient, he seems to have some understanding. Obviously, he is acutely ill and we need to keep a very close eye on this. 2. Longstanding type 2 diabetes with previously documented diabetic nephropathy and proteinuria. He has had a previous left toe amputation with a diabetic foot infection and osteomyelitis. He certainly is set up for some renal instability related to that. 3. 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 He has documented varices, ascites, recurring need for paracenteses. His synthetic function appears to be fairly well preserved. 4. Recurring MRSA infection, initially 9 months ago or so with the left second toe amputation and now the infected left hip including the hardware. Now on daptomycin. Once we get his levels down we will have to discuss if we want him back on vancomycin. Certainly that will depend if we see other evidence of an acute interstitial nephritis from the vancomycin. 5. Anemia, severe. No overt bleeding. He dropped postop, no evidence of a GI bleed, although he certainly does have a history of varices. He is getting blood today and we will see how he responds to that transfusion. PLAN: 1. We will check urine studies including a UA, fractional excretion of sodium, and urine protein creatinine ratio. 2. Hold his diuretics including furosemide and spironolactone at this time. 3. Low sodium diet. 4. We will repeat labs in the morning. 5. Agree with holding the vancomycin at this time. 6. We will follow along closely in the care of this acutely ill patient. <ELECTRONICALLY SIGNED> By: Frank Henriquez MD 03/07/20 0718 [id number] Frank Henriquez MD /nt
[2020-03-07 07:35] VITALS: BP 121/62
--- NOTE | 2020-03-07 15:40 | NUR ---
[facility] INDICATED THEY WEREN'T TAKING ADMISSIONS AT THIS TIME. CM CALLED AND NOTIFIED PT'S SPOUSE AND SHE ASKED THAT [place]FERR[place] [facility] [place] [facility]. CM TO FOLLOW INDICATED WITH DC PLANNING.
--- NOTE | 2020-03-07 16:45 | NUR ---
Pt WAS NOT READY FOR 5N ACUTE REHAB ADMISSION OVER THE WEEKEND D/T MEDICAL ISSUES. WILL CONTINUE TO FOLLOW ALONG WITH THIS Pt.
[2020-03-07 16:59] VITALS: BP 115/61
--- NOTE | 2020-03-07 17:53 | NUR ---
PT IS AOX4, VSS, TOLERATING DIET, NO PAIN AT THIS TIME. PT IS CURRENTLY IN RECLINER, ASSIST X1 TO AMBULATE. PT IV IS PATENT [place] [facility]. DRESSINGS CDI, FALL PRECAUTIONS IN PLACE. PT WILL CALL APPROPRIATELY. WILL CONTINUE TO MONITOR.
[2020-03-07 21:25] VITALS: BP 136/60
[2020-03-08 04:58] VITALS: BP 134/62
[2020-03-08 04:59] VITALS: BP 134/62
[2020-03-08 06:41] LABS: ALBUMIN 2.4 g/dL (3.4-5.0); CALCIUM 7.7 mg/dL (8.5-10.1); CREATININE 3.2 mg/dL (0.7-1.3); PHOSPHORUS 5.4 mg/dL (2.5-4.9); POTASSIUM 5.2 mmol/L (3.5-5.1)
[2020-03-08 07:45] VITALS: BP 120/65
--- NOTE | 2020-03-08 07:48 | NUR ---
RECIEVED CARE OF THIS PATIENT AT 1900. PATIENT ALERT AND ORIENTED X4. HAS DRESSING ON L HIP. HAS FLOEY CATH. REMAINS IN ISO FOR MRAS IN WOUND. HAS ISHAAN EDEMA IN LOWER EXT. SCROTUM IS EDEMATOUS. SLEEPS IN RECLINER. IV IN DREW. C/O PAIN, MED GIVEN. SLEPT OFF AND ON DURING NIGHT.
--- NOTE | 2020-03-08 14:13 | NUR ---
CARE TEAM INDICATED THAT PT IS PROGRESSING TOWARD GOAL OF DISCHARGE. IT IS ANTICPATD THAT PT MAY BE MEDICALLY STABL TO DC TO 5N THE ACUTE INPATIENT REHAB ON SATURDAY. THEY WOULD NEED TO REQUEST AUTH AGAIN FOR ADMISSION. CM TO FOLLOW INDICATED WITH DC PLANNING.
[2020-03-08 15:14] VITALS: BP 117/64
--- NOTE | 2020-03-08 19:48 | NUR ---
Assessment completed.Vss.Pt up in chair most of the times today.Assisted with tray setup at [facility].Good appetite.Dr Noguera and tamar here,order noted. Pt informed about i&d elft hip scheduled for am.Medicated pt with po pain med with relief.Pt ambulated x2 in hallways with therapist today. Good endurance noted.Drsg change done to lt hip as ordered.Will continue to monitor.
[2020-03-08 19:50] VITALS: BP 123/56
[2020-03-09] VITALS (7 sets, daily range): BP systolic 96–132; BP diastolic 57–73
--- NOTE | 2020-03-09 05:02 | NUR ---
ASSUMED CARE OF PT AT 1900HRS. PT AOX4 AND LETS NEEDS BE KNOWN. FALL PRECAUTION IN PLACE. CHANDRA IN PLACE AND IS PATIENT. PT SPENT ENTIRE SHIFT IN THE RECLINER. LEFT HIP DRESSING C/D/I. PT WAS PLACED NPO AT DC FOR AN I&D IN THE AM. VSS AND NO S/S OF ACUTE DISTRESS. PT WAS ABLE TO GET COMFORTABLE ADN SLEEP PART OF THE SHIFT. WILL CONTINUE TO MONITOR FOR CHANGES.
[2020-03-09 06:08] LABS: ALBUMIN 3.2 g/dL (3.4-5.0); CALCIUM 8.1 mg/dL (8.5-10.1); CREATININE 3.5 mg/dL (0.7-1.3); PHOSPHORUS 5.3 mg/dL (2.5-4.9); POTASSIUM 4.7 mmol/L (3.5-5.1)
--- NOTE | 2020-03-09 14:20 | NUR ---
PATIENT HAS BEEN ACCEPTED FOR ACUTE REHAB STAY ON 5N PENDING INSURANCE AUTHORIZATION AND BED AVAILABILITY. AUTHORIZATION REQUESTED THIS DATE. PENDING AUTHORIZATION IS [id number]. AWAITING INSURANCE RESPONSE. THANK YOU FOR THIS REFERRAL.
--- NOTE | 2020-03-09 14:35 | NUR ---
PT IS AOX4, VSS, PAIN CONTROLLED IN L HIP BY IV ANALGESIC DURING I/D SURGERY. PT CURRENTLY DENIES PAIN, LEFT HIP DRESSING, CDI, IV IN RUE IS PATENT WITH IV FLUIDS. PT TOLERATING CLEAR LIQUID DIET, WILL ADVANCE TO SOLID FOOD AT DINNER. FEET ELEVATED IN RECLINER. PT CALLS APPROPRIATELY, CALL LIGHT/PERSONAL ITEMS IN REACH. WILL CONTINUE WITH POC.
[2020-03-10] VITALS (7 sets, daily range): BP systolic 115–134; BP diastolic 55–64
--- NOTE | 2020-03-10 04:37 | NUR ---
ASSUMED CARE OF PT AT 1900HRS. PT AOX4 AND LETS NEEDS BE KNOWN. FALL PRECAUTION IN PLACE. PT IS POST I&D DAY 0 AND DRESSING IS C/D/I. PT REPORTED SOME PAIN, PRN GIVEN. CHANDRA IN PLACE AND IS PATIENT WITH CLEAR, YELLOW URINE. PT WAS ABLE TO GET COMFORTABLE AND SLEEP PART OF THE SHIFT. VSS AND NO S/S OF ACUTE DISTRESS. WILL CONTINUE TO MONITOR.
[2020-03-10 10:29] LABS: ALBUMIN 3.1 g/dL (3.4-5.0); CALCIUM 7.8 mg/dL (8.5-10.1); CREATININE 3.6 mg/dL (0.7-1.3); PHOSPHORUS 5.6 mg/dL (2.5-4.9); POTASSIUM 4.9 mmol/L (3.5-5.1)
[2020-03-10 12:54] LABS: RBC 1.9 mil/uL (4.50-6.00); RDW 18.5 % (10.5-14.5)
[2020-03-10 12:56] LABS: MCH 29.6 pg (26.0-34.0); MCHC 33.7 g/dL (28.0-37.0); MCV 88.1 fL (80.0-100.0); WBC 5.7 thou/uL (4.0-11.0)
[2020-03-10 13:01] LABS: HEMOGLOBIN 5.6 gm/dL (14.0-18.0)
[2020-03-10 13:02] LABS: HEMATOCRIT 16.7 % (42.0-52.0)
--- NOTE | 2020-03-10 16:34 | NUR ---
PT HAD REPEAT I&D YESTERDAY. WE ARE AWAITING INSURANCE AUTH FOR PT TO GO TO N. CM TO FOLLOW INDICATED WITH DC PLANNING.
--- NOTE | 2020-03-10 20:36 | NUR ---
Assumed pt care this am, isolation maintained. VS stable through out the shift. Pt wortked with PT and ambulated the halls. Critical labs called , 2 units if RBC for transfusion ordered. 1 unbit started with no signs and symptoms of a reaction. FC patent draining yellow urine. POC followed with no signs or verbalizations of distress noted.
[2020-03-11 04:29] LABS: HEMOGLOBIN 6.8 gm/dL (14.0-18.0); MCH 29.5 pg (26.0-34.0); RBC 2.3 mil/uL (4.50-6.00); WBC 5.6 thou/uL (4.0-11.0)
[2020-03-11 04:31] LABS: MCHC 34.6 g/dL (28.0-37.0); MCV 85.3 fL (80.0-100.0); RDW 17.7 % (10.5-14.5)
[2020-03-11 04:55] LABS: ALBUMIN 3.2 g/dL (3.4-5.0); CALCIUM 7.9 mg/dL (8.5-10.1); CREATININE 3.2 mg/dL (0.7-1.3); PHOSPHORUS 4.4 mg/dL (2.5-4.9); POTASSIUM 4.2 mmol/L (3.5-5.1)
--- NOTE | 2020-03-11 05:01 | NUR ---
TOLERATED 2ND UNIT OF PRBCs PLUS ALBUMIN IN BETWEEN. PLEASANT AND CURIOUS ABOUT REASONS FOR BLOOD LOSS. HEMOVAC AND CHANDRA PATENT FOR 40 CC AND 1250 CC RESPECTIVELY. ANTICIPATES GOING TO REHAB IN THE NEAR FUTURE.
[2020-03-11 06:31] LABS: HEMATOCRIT 19.6 % (42.0-52.0)
[2020-03-11 08:28] VITALS: BP 122/62; BP 134/72
--- NOTE | 2020-03-11 10:17 | NUR ---
OMAR FROM [facility] CALLED THIS DATE AT 10:06 AND DENIED ACUTE REHAB STAY FOR PATIENT. DENIAL BASED NO MEDICAL NEED FOR LEVEL OF SERVICE. PEER TO PEER, IF DESIRED, MUST BE ARRANGED BY 1630 THIS DATE. TO ARRANGE PEER TO PEER, PLEASE CALL . TECHNICIAN [employer]LE[employer] NOTIFIED.
[2020-03-11 16:34] LABS: HEMATOCRIT 22.7 % (42.0-52.0); HEMOGLOBIN 7.9 gm/dL (14.0-18.0)
--- NOTE | 2020-03-11 16:36 | NUR ---
INSURANCE DENIED 5N. CM TO PURSUE SKILLED PLACEMENT FOR EARLY NET WEEK. NO WEEKEND DC PT RECIEVING BLOOD. DRAIN TO BE PULLED TOMORROW. CM TO FOLLOW.
--- NOTE | 2020-03-11 16:51 | NUR ---
ASSUMED CARE AT 0700. PT ALERT AND ORIENTED. DROWSY. NO NEW CONCERNS. VSSA/RA. CHANDRA DRAINING, BM TODAY. TOLERATING DIET. BLOOD SUGARS STABLE. PIV WITHOUT COMPLICATIONS. DRESSING TO L HIP IS C/D/I, WITH THE HEMOVAC. SWELLING IMPROVING. H&H LOW, TRANSFUSED THIS AM. PT IS UP WITH ASSIST AND A WALKER. PT/OT WORKING WITH HIM. CALL LIGHT IN REACH. WILL CONTINUE TO MONITOR
[2020-03-11 21:36] VITALS: BP 134/63
[2020-03-12 05:41] LABS: HEMATOCRIT 22.2 % (42.0-52.0); HEMOGLOBIN 7.7 gm/dL (14.0-18.0); MCH 29.9 pg (26.0-34.0); MCHC 34.6 g/dL (28.0-37.0); MCV 86.4 fL (80.0-100.0); RBC 2.57 mil/uL (4.50-6.00); RDW 17.7 % (10.5-14.5); WBC 6.5 thou/uL (4.0-11.0)
--- NOTE | 2020-03-12 05:53 | NUR ---
PT A&O X4 ABLE TO MAKE NEEDS KNOWN. OCC C/O LEFT HIP PAIN EFFECTIVELY CONTROLLED VIA PRN PAIN MEDS. LEFT SURGICAL INCISION DRESSING CDI. NPO SINCE MIDNIGHT FOR EGD IN THE AM. CONTINUES ON CONTACT ISO FOR MRSA ON THE WOUND. PT HAS A CHANDRA DRAINS WITHOUT DIFFICULTY. SCROTAL EDEMA IMPROVED PER PT. PT CALLS APPROPRIATELY
[2020-03-12 06:12] VITALS: BP 129/59
[2020-03-12 06:37] LABS: ALBUMIN 3.5 g/dL (3.4-5.0); CREATININE 2.8 mg/dL (0.7-1.3); POTASSIUM 4.1 mmol/L (3.5-5.1)
[2020-03-12 09:30] VITALS: BP 144/67
[2020-03-12 15:00] VITALS: BP 138/64
--- NOTE | 2020-03-12 15:39 | NUR ---
ASSUMED CARE AT 0700. PT IS ALERT AND ORIENTED. NO CONCERNS TODAY. VSSA/RA. PT HAD EGD THIS AM. NO NEW RESULTS FROM THAT. CHANDRA IN PLACE, BM WITHOUT ISSUES. TOLERATING DIET WHEN ABLE. BLOOD SUGARS STABLE. PIV SL. HEMOVAC IN PLACE WITH MINIMAL OUTPUT. DRESSING C/D/I. PT SBA WITH WALKER. WORKED PT TODAY. CALL LIGHT IN REACH. 1155 CHANDRA REMOVED. NO COMPLICATIONS. NEW ORDERS TO REMOVE HEMOVAC AND APPLY NEW DRESSING.
[2020-03-12 20:40] VITALS: BP 120/53
--- NOTE | 2020-03-13 04:54 | NUR ---
Pt. rested quietly during the night when checked on during frequent rounds. He offers no complaints of pain. UP to the bedside comode with assistance of one and a walker. Pt. prefers to rest in the recliner chair all night. Chair alarm in on.
[2020-03-13 05:20] VITALS: BP 137/66
[2020-03-13 06:03] LABS: HEMOGLOBIN 7.9 gm/dL (14.0-18.0); MCHC 34.5 g/dL (28.0-37.0); RBC 2.65 mil/uL (4.50-6.00); RDW 17.7 % (10.5-14.5); WBC 6.8 thou/uL (4.0-11.0)
[2020-03-13 06:19] LABS: ALBUMIN 3.6 g/dL (3.4-5.0); CALCIUM 8.1 mg/dL (8.5-10.1); CREATININE 2.5 mg/dL (0.7-1.3); PHOSPHORUS 3.5 mg/dL (2.5-4.9); POTASSIUM 3.9 mmol/L (3.5-5.1)
[2020-03-13 07:41] VITALS: BP 138/62
--- NOTE | 2020-03-13 11:58 | NUR ---
ASSUMED CARE AT 0700. PT IS ALERT AND ORIENTED. COMPLAINING ABOUT THE CHAIR ALARM GOING OFF ALL NIGHT. I EDUCATED PT ON THE REASONS WHY IT WAS ON AND THAT OUR GOAL IS SAFETY. PT STATES HE UNDERSTANDS, BUT WOULD LIKE IT TURNED OFF AND AGREES TO CALL OUT WHEN NEEDS TO GET UP. I HAVE SEEN HIM WALK AND HE IS STEADY ON HIS FEET WITH A WALKER. HIS CALL LIGHT IS IN REACH. VSSA/RA. NO PAIN. TOLERATING DIET, URINATING AND HAVING BM. BLOOD SUGARS MONITORED. PIV WITHOUT ISSUES. DRESSING TO LEFT HIP SATURATED THIS AM. CHANGED DRESSING. CLEANED WITH NS, APPLIED XEROFORM AND ABD AND TAPE. WILL CONTINUE TO MONITOR
[2020-03-13 15:33] VITALS: BP 132/62
[2020-03-13 19:30] VITALS: BP 135/62
--- NOTE | 2020-03-14 04:15 | NUR ---
ASSESSED AT START OF SHIFT. PT IN CHAIR STATES HE PREFERS TO RECLINE IN CHAIR. LEFT HIP DRESSING CHANGED HAD 6-10ML OF SEROSANGUINOUS DRANAGE. NEW DRESSING IN PLACE WITH XEROFOAM, ABD AND TAPE. PT DENIES PAIN. BLOOD SUGAR CHECKED. ISOLATION MAINTAINED. IV INTACT NO REDNESS OR DRAINAGE IV ALBUMIN GIVEN. UP WITH SBA TO THE BSC. WILL CONT WITH POC TILL EOS.
[2020-03-14 05:23] VITALS: BP 148/62
[2020-03-14 05:49] LABS: ALBUMIN 3.9 g/dL (3.4-5.0); CALCIUM 8.5 mg/dL (8.5-10.1); CREATININE 2.5 mg/dL (0.7-1.3); PHOSPHORUS 3.5 mg/dL (2.5-4.9); POTASSIUM 4.4 mmol/L (3.5-5.1)
[2020-03-14 08:00] VITALS: BP 144/62
--- NOTE | 2020-03-14 09:27 | NUR ---
Followup: eating 100% of meals and still would like to continue receiving glucerna shakes. Renal managing fluid status. Diuresis now on hold. Low nutrition risk
[2020-03-14] MEDS ORDERED: LACTULOSE20 GM/30 M PO (09:37)
[2020-03-14] MEDS ORDERED: LANTUS SUBQ (09:38)
[2020-03-14] MEDS ORDERED: HUMALOG100 UNIT/1 SUBQ (09:38)
[2020-03-14] MEDS ORDERED: NYSTATIN15 G1 TOP (09:38)
[2020-03-14] MEDS ORDERED: CUBICIN500 MG IVPB (09:45)
--- NOTE | 2020-03-14 13:33 | NUR ---
CM SPOKE WITH PT AND INDICATED THAT HIS INSURANCE HAD DENIED 5N ACUTE INPATIENT REAHB. CM ASKED IF HE WAS AGREEABLE WITH REFERRAL BEING SENT TO [facility] WHERE HE HAD BEEN PREVIOUSLY FOR REVIEW FOR POSSIBLE SKILLED REHAB STAY. REFERRAL SENT. AWAITING RESPONSE. CM TO FOLLOW INDICATED WITH DC PLANNING.
[2020-03-14 15:00] VITALS: BP 125/56
--- NOTE | 2020-03-14 15:26 | HC ---
[facility] [place] [address] [place] [address] CONSULTATION Name: ROEL GIPSON Room #: 3- ADM IN M.R.#: [id number] Admission: 02/26/20 Attend Phys: Earnest Gomez MD Discharge: Date of : 58 Report #: [id number] THIS REPORT FOR: cc: Matias Mcclain MD, Amit J. MD Smithson, David G. MD ~ CC: Matias Gomez DATE OF SERVICE: 03/02/2020 HISTORY OF PRESENT ILLNESS: The patient is a 59-year-old white male with a history of insulin-dependent diabetes mellitus, had a prior left femoral neck fracture, status post hip hemiarthroplasty, 12/14/2019. He had been at home, gradually progressing. He started having increased pain with that left hip and was noted to have a left hip abscess. He underwent I and D on 02/26/2020 and was diagnosed with MRSA. He was noted to have a left septic hip and now has undergone I and D with implant exchange of femoral head, 03/01/2020. Infectious Disease is involved. His course was complicated by liver cirrhosis due to hepatitis C in the past. He does have anasarca and ascites and underwent paracentesis earlier today. We are seeing him in rehabilitation medicine consultation. PAST MEDICAL HISTORY: Includes insulin-dependent diabetes mellitus with hemoglobin A1c of 7.7, history of cirrhosis as noted above. He had a prior left second toe amputation. He indicates he had hepatitis C in the past, but no longer has problems in that regard. He has problems with lower extremity edema. MEDICATIONS: Please see the full medication listing. ALLERGIES: No known drug allergies. SOCIAL HISTORY: He lives in a house with a 72-year-old lady, apparent significant other. He notes he stays with her in the evenings as she does not want to be alone, but he could also stay in his own house and a cousin from up the street could assists him. He does not think that the lady could assist him. There are 2 steps in. He had used a walker right after the femur fracture and then progressed to a cane. REVIEW OF SYSTEMS: No current complaints of chest pain, shortness of breath or abdominal discomfort. PHYSICAL EXAMINATION: GENERAL: A 59-year-old white male in no obvious distress. He is alert, pleasant, follows basic 1 step commands. VITAL SIGNS: Temperature 98.6, pulse 107, respirations 18, and blood pressure [facility] [address] [place] [address] CONSULTATION Name: ROEL GIPSON Room #: 463-P [facility] IN .R.#: [id number] Admission: 02/26/20 Attend Phys: Earnest Gomez MD Discharge: Date of : 58 Report #: [id number] 117/66. HEENT: Facies are symmetric. Dentition is poor. Follows basic commands without difficulty. EXTREMITIES: Functional range of motion of both upper extremities with strength at least a grade 4/5. DTRs are trace to 1. He does have some abdominal fullness. On examination, he has definite lower extremity edema 2+ to 3+ throughout. His left hip is dressed over the incisional area. He has the drain in place. He can dorsiflex the left ankle and the left toes. Distal strength is at least a grade 4-/5, right lower extremity strength is probably a grade 4- to 3+/5. He did sit to stand, min assist and ambulated 30 feet min assist with a front-wheeled walker. ASSESSMENT: A 59-year-old male with the following problem list: 1. Septic left hip with abscess, status post initial I and D and subsequent implant exchange of femoral head, 03/01/2020, allowed weightbearing as tolerated. 2. Prior history of a left femoral neck fracture, status post left hip hemiarthroplasty on 12/14/2019. 3. Anasarca. He has liver cirrhosis and underwent paracentesis with his noted ascites earlier today. 4. Insulin-dependent diabetes mellitus with hemoglobin A1c 7.7. 5. Prior history of left second toe amputation. PLAN: Therapies are continuing to evaluate and work with him. We will need to see how he further does with his functional mobility and ADL independence and overall safety issues for discharge. We may consider checking with insurance regarding an acute in-hospital inpatient rehabilitation stay depending upon how he does. We will be glad to follow along with you regarding his rehab therapy needs. <ELECTRONICALLY SIGNED> By: Fercho Gaviria MD 03/14/20 1526 [id number] Fercho Gaviria MD /nt
--- NOTE | 2020-03-14 17:10 | NUR ---
FAXED REFERRAL TO [facility]AB SPOKE WITH [facility] SHE RECEIVED REFERRAL AND CAN ACCEPT CLINICALLY SHE RAN INSURANCE BUT OWES $400 SHE WILL SPEAK WITH PT REGARDING THIS. DP TO FOLLOW.
[2020-03-14 19:57] VITALS: BP 117/54
--- NOTE | 2020-03-14 20:30 | NUR ---
Assumed pt care this am, spent most of his day on the recliner. Medication and diet are well tolerated. Wound dressing was c/d/i this am, dressing change to be done in the pm. Would call appropriately when he needsto get up and still uses the urinal. POC followed with no signs or verbalizations of distress noted. Isolation maintained, endorsed to the night nurse. Awaiting auth .
[2020-03-15 04:26] VITALS: BP 125/60
[2020-03-15 06:47] LABS: ALBUMIN 3.7 g/dL (3.4-5.0); CALCIUM 8.4 mg/dL (8.5-10.1); CREATININE 2.3 mg/dL (0.7-1.3); PHOSPHORUS 3.5 mg/dL (2.5-4.9); POTASSIUM 3.9 mmol/L (3.5-5.1); TOTAL BILIRUBIN 1.5 mg/dL (0.2-1.0); TOTAL PROTEIN 7.6 g/dL (6.4-8.2)
--- NOTE | 2020-03-15 07:55 | NUR ---
PROGRESS PT A/O X 4 UP WITH SBA WALKER AND GB. VOIDS PER URINAL NO BM THIS SHIFT PAIN CONTROLLED WITH OXYCODONE TAKING SPARINGLY. DRESSING TO LEFT HIP CHANGED NO S/S OF INFECTION NOTED SANGUINOUS DRAINAGE NOTED SHARIFA INTACT INCISION WELL APPROXIMATED EDEMA STILL PRESENT BUT IT IS DISSIPATING. CONTINUE POC.
--- NOTE | 2020-03-15 07:57 | NUR ---
PT TRANSFERRED TO ROOM 464 VIA BED FROM [address] [place] [address] FROM [place], PT ORIENTED TO ROOM CALL LIGHT SYSTEM AND POC TELE PLACED READING AFIB IN THE 50'S TO 80'S.
[2020-03-15 08:15] VITALS: BP 145/65
--- NOTE | 2020-03-15 12:23 | NUR ---
Assessment completed.vss.Pt up in chair for breakfast. Good appetite.Pt tolerated meds.Dr Noguera and Jefry here,order noted.Picc line place by iv team this morning.Pt up to bsc for bm.Fall bundle in place.Pt still waiting for insurance clearance for placement.W ill probably dc today to [facility] if bed available.No verbal c/o at present.Will continue to monitor.
--- NOTE | 2020-03-15 12:35 | NUR ---
RISK, BENEFITS, AND ALTERNATIVE TREATMENT DISCUSSED WITH THE PATIENT. TEACHING GIVEN RELATED TO PICC PROCEDURE AND POSSIBLE COMPLICATIONS SUCH BLEEDING, INFECTION, CLOT, OR VESSEL PERFORATION. INSTRUCTION GIVEN RELATED TO CLABSI PREVENTION WITH LITERATURE PROVIDED. PATIENT VOICES UNDERSTANDING TO THE ABOVE. SINGLE LUMEN PICC PLACED TO RUE BRACHIAL VEIN. ONE STICK AND NO COMPLICATIONS. PATIENT TOLERATED WELL. PICC TIP VERIFIED PER CHEST XRAY. RN NOTIFIED OKAY TO USE PICC. NO COMPLICATONS. DRESSING CLEAN, DRY, AND INTACT. PICC =38 CM IN LENGTH, 1CM EXTERNAL. 32 CM ARM CIRCUMFERENCE. V.O.=18%.
--- NOTE | 2020-03-15 12:35 | O ---
[facility] [place] [address] OPERATIVE REPORT Name: ROEL GIPSON Room #: 463- ADM IN M.R.#: [id number] Admission: 02/26/20 Attend Phys: Earnest Gomez MD Discharge: Date of : 58 Report #: [id number] THIS REPORT FOR: cc: Matias Mcclain MD, Amit J. MD Kneidel, Matthew T. MD ~ CC: Matias Gomez DATE OF SERVICE: 03/09/2020 PREOPERATIVE DIAGNOSIS: Left hip infected seroma. POSTOPERATIVE DIAGNOSIS: Left hip infected seroma. PROCEDURE: Left hip irrigation and debridement with antibiotic beads placement. SURGEON: Dr. Earnest Gomez. BULLARD MACHINE OPERATOR: Elisa Navarro. ANESTHESIA: General. ESTIMATED BLOOD LOSS: 50 mL. DRAINS: Two Hemovac drains were placed. COMPLICATIONS: There were no complications. DESCRIPTION OF PROCEDURE: The patient was brought to the operating room where he was placed under general anesthesia. Once under adequate general anesthesia, he was placed into a lateral decubitus position on the operative table. The left hip was then prepped and draped in sterile manner. The patient's previous patrick were removed from the skin, allowing the wound to open. Abundant seromatous fluid was then removed. The wound and soft tissues were debrided with a rongeur. This extended deep to the fascia. Subsequently, 6 liters of normal saline solution were used with the pulsatile lavage to irrigate copiously. The wound was irrigated copiously and on the back table antibiotic cement with gram of vancomycin was then mixed. This was then formed into a small centimeter round beads placed on a string. This was a 0 Ethibond suture. The beads on a string were then placed into the wound in the subfascial area. A Hemovac drain was placed in the subfascial region as well as superior to the fascia. The wound was then closed with 0 PDS in the fascial layer, 2-0 PDS in the subcutaneous tissues and patrick were used for the skin. The wound was dressed with Xeroform, 4 x 4s, and then a sterile soft compressive dressing was [address] [address] OPERATIVE REPORT Name: GIPSON,ROEL Room #: 463-P ADM IN M.R.#: [id number] Admission: 02/26/20 Attend Phys: Earnest Gomez MD Discharge: Date of : 58 Report #: [id number] placed. There were no complications from the procedure. The patient tolerated the procedure well and was taken to recovery room without incident. <ELECTRONICALLY SIGNED> By: Earnest Gomez MD 03/15/20 1235 1025 3549 Earnest Gomez MD /nt
--- NOTE | 2020-03-15 13:57 | NUR ---
[facility] HAD ACCEPTED PT FOR SKILLD REHAB STAY. PT HAD $400.OO OUPASQUALE [place]ERRA BUT HE HAS SINCE PAID HALF OF THAT TO THE FACILITY. JCARLOS THEIR LIAISON VISITED PT THIS DAY. WE ARE AWAITING INSURANCE AUTH. CHART COPY ORDERED.
[2020-03-15 16:16] VITALS: BP 143/62
--- NOTE | 2020-03-15 19:19 | NUR ---
PICC RUE WAS BLEEDING SLIGHTLY. PRESSURE APPLIED FOR 3 MINUTES AND RUE ELEVATED ON A PILLOW. DRESSING CHANGE DONE PER PROTOCOL. NO FURTHER BLEEDING NOTED.
[2020-03-15 20:13] VITALS: BP 132/59
[2020-03-16 05:04] LABS: ALBUMIN 3.7 g/dL (3.4-5.0); CALCIUM 8.1 mg/dL (8.5-10.1); CREATININE 2.2 mg/dL (0.7-1.3); PHOSPHORUS 3.6 mg/dL (2.5-4.9); POTASSIUM 3.8 mmol/L (3.5-5.1)
[2020-03-16 08:01] VITALS: BP 149/68
--- NOTE | 2020-03-16 08:23 | NUR ---
PROGRESS PT A/O X 4 UP AD [facility] DENIES PAIN EXCEPT WITH DRSG CHANGED. PICC LINE TO DREW INTACT AND FLUSHES WITHOUT DIFFICULTY. WAITING FOR AUTH TO TRANSFER TO SKILLED FOR REHAB.
--- NOTE | 2020-03-16 15:31 | NUR ---
OF THIS NOTE STILL AWAITING AUTH FOR PT TO GO TO [facility]. CM FOLLOWING REGARDING DC PLANNING.
--- NOTE | 2020-03-16 15:48 | NUR ---
SPOKE WITH GIANLUCA IN ADM AT [facility] AND SHE HAS NOT RECEIVED AUTH FAXED CLINICAL UPDATE TO SUBMIT FOR AUTH RECEIVED CONFIRMATION.
--- NOTE | 2020-03-16 17:07 | PATH ---
[facility] [address] [place] [address] PATHOLOGY RPT PROCEDURE Name: ROEL GIPSON Room #: 463-P ADM IN M.R.#: [id number] Admission: 02/26/20 Date of : 58 Discharge: Report #: [id number] Path Case #: [id number] [facility] Accession Number: [id number] . 01 Material submitted: . stomach - BIOPSY OF STOMACH GASTRIC NODULES . 01 Clinical history: . Esophageal varices . 02 Diagnosis: Gastric mucosa, stomach gastric nodules, endoscopic biopsy: - Mild reactive gastropathy with hyperplastic changes. - Negative for intestinal metaplasia or atrophy. - Negative for Helicobacter pylori (properly controlled immunohistochemical stain performed). (IUV:barrel charrer helper; 03/16/2020) MBR 03/16/2020 1445 Local . 02 Electronically signed: . Amita Hdz MD, Pathologist NPI- [id number] . 01 Gross description: . The specimen is received in formalin, labeled "Gipson, Roel, BX of stomach gastric nodules" and consists of multiple fragments of appiah tissue measuring 0.7 x 0.4 x 0.2 cm in aggregate which are entirely submitted in A1. ([facility]; 03/15/2020) JFQ/JFQ 03/15/2020 1616 Local . 02 Pathologist provided ICD-10: K31.9 . 02 CPT . 795505, Z66616 Specimen Comment: A courtesy copy of this report has been sent to [phone] Specimen Comment: Report sent to Performed at: [address] [facility], [place], [place] [id number] MD Kaushik Alcala MD Phone: [phone] Performed at: [address] [facility] [id number] MD Amita Hdz MD Phone: [phone]
[2020-03-16 17:31] VITALS: BP 127/66
--- NOTE | 2020-03-16 19:15 | NUR ---
Pt up in chair for all meals.Good appetite.Assessment conmpleted.vss.Pt o2 sat dropped to upper 80's after breakfast.Pt was placed on 2lnc.Better sat noted. Dr Capps and Poornima here,no new order noted.Pt still waiting for insurance authorization.Lt [facility] drsg c/d/i.Will continue to monitor.
[2020-03-16 19:22] VITALS: BP 136/62
--- NOTE | 2020-03-17 03:59 | NUR ---
ASSUMED PT CARE AROUND 193. AXOX4. L HIP DRESSING CDI. PENDING PLACEMENT FOR SNF. PT IS FRUSTRATED AND DOES NOT UNDERSTAND WHY HE CANNOT GO HOME WITH HH INSTEAD OF GOING TO SNF. WILL REPLAY TO INCOMING NURSE TO F/U WITH CM IN AM.
[2020-03-17 05:56] VITALS: BP 153/67
[2020-03-17 06:50] LABS: ALBUMIN 4.1 g/dL (3.4-5.0); CALCIUM 8.4 mg/dL (8.5-10.1); CREATININE 2.1 mg/dL (0.7-1.3); PHOSPHORUS 3.4 mg/dL (2.5-4.9); POTASSIUM 3.9 mmol/L (3.5-5.1)
[2020-03-17 08:35] VITALS: BP 141/62
--- NOTE | 2020-03-17 15:52 | NUR ---
PT WTG ON AUTH FOR SKILLED STAY AT [facility] SPOKE WITH GIANLUCA IN ADM EVIDENTLY INSURANCE THOUGHT SHE WAS REQUESTING FOR LTC AND THEY DENIED SHE CLARIFIED WITH THEM THAT SHE NEEDS SKILLED AUTH SO SHE WILL NOTIFY ME ONCE SHE GETS AUTH.
--- NOTE | 2020-03-17 16:22 | NUR ---
ANDRAE WAS FINIALLY RECIEVED FOR PT TO DC TO [facility] THIS DAY FOR SKILLED REHAB SERVICES. PT IS AWARE AND AGREEABLE. HE IS TO NOTIFY HIS FRIEND MONALISA. [facility] IS ARRANGED FOR [phone]. ORDERS FAXED. REPORT TO BE CALLED TO . CHART COPY MADE.
[2020-03-17 16:29] VITALS: BP 120/61
--- NOTE | 2020-03-17 17:59 | NUR ---
Assumed pt care this am, stayed on the chair for most of the day, steady on his gait. Uses the bedside commode and urinal. Medications and diet are well tolerated. Wound care done early this am by the restaurant shift leader nurse, pt refused to reopen for DC pictured to be taken. PICC line patent flushing and drawing blood, kept in for senior living abx. DC orders given, report called out to Tad nurse. POC followed with no signs or verbalizations of distress noted. PT has been picked up by transport and is now dc.
== END 2020-03-17 19:27 | DRG 853 ==
LOC: ER 10:23 → 4W 10:54 → EROBS 10:54 → 4W 11:08
PROVIDERS: Emergency Medicine; Hospitalist; Internal Medicine Infectious Disease; Internal Medicine Nephrology; Nurse Practitioner; Orthopaedic Surgery Sports Medicine; Specialist; ADMIT Orthopaedic Surgery Foot and Ankle Surgery; ATTEND Orthopaedic Surgery Foot and Ankle Surgery
PROC: 0JDM0ZZ Extraction of Left Upper Leg Subcutaneous Tissue and Fascia, Open Approach (ICD-10-PCS; principal; 2020-02-26)
PROC: 0JDM0ZZ Extraction of Left Upper Leg Subcutaneous Tissue and Fascia, Open Approach (ICD-10-PCS; 2020-03-01)
PROC: 2W0 Placement, Anatomical Regions, Change (ICD-10-PCS; 2020-03-01)
PROC: 0S9B0ZZ Drainage of Left Hip Joint, Open Approach (ICD-10-PCS; 2020-03-02)
PROC: 0W9G3ZZ Drainage of Peritoneal Cavity, Percutaneous Approach (ICD-10-PCS; 2020-03-02)
PROC: 30233N1 Transfusion of Nonautologous Red Blood Cells into Peripheral Vein, Percutaneous Approach (ICD-10-PCS; 2020-03-05)
PROC: 3E0U029 Introduction of Other Anti-infective into Joints, Open Approach (ICD-10-PCS; 2020-03-09)
PROC: 0JDM0ZZ Extraction of Left Upper Leg Subcutaneous Tissue and Fascia, Open Approach (ICD-10-PCS; 2020-03-09)
PROC: 0DB68ZX Excision of Stomach, Via Natural or Artificial Opening Endoscopic, Diagnostic (ICD-10-PCS; 2020-03-12)
PROC: 02HV33Z Insertion of Infusion Device into Superior Vena Cava, Percutaneous Approach (ICD-10-PCS; 2020-03-15)
DX: A41.9 Sepsis, unspecified organism (principal); E43 Unspecified severe protein-calorie malnutrition; N17.0 Acute kidney failure with tubular necrosis; L02.416 Cutaneous abscess of left lower limb; E87.1 Hypo-osmolality and hyponatremia; R18.8 Other ascites; L03.116 Cellulitis of left lower limb; T84.52XA Infection and inflammatory reaction due to internal left hip prosthesis, initial encounter; M00.052 Staphylococcal arthritis, left hip; I85.00 Esophageal varices without bleeding; K74.69 Other cirrhosis of liver; B95.62 Methicillin resistant Staphylococcus aureus infection as the cause of diseases classified elsewhere; B19.20 Unspecified viral hepatitis C without hepatic coma; E11.9 Type 2 diabetes mellitus without complications; I10 Essential (primary) hypertension; Z96.642 Presence of left artificial hip joint; L30.8 Other specified dermatitis; E87.5 Hyperkalemia; D50.0 Iron deficiency anemia secondary to blood loss (chronic); I87.8 Other specified disorders of veins; B35.6 Tinea cruris; Z89.422 Acquired absence of other left toe(s); Z79.4 Long term (current) use of insulin; Z86.14 Personal history of Methicillin resistant Staphylococcus aureus infection; Z79.899 Other long term (current) drug therapy; Z20.828 Contact with and (suspected) exposure to other viral communicable diseases
CPT/HCPCS: 10040; 10045; 27000; 50010; 50101; 50382; 50386; 50414; 51412; 53078; 56525; 56526; 57091; 57103; 57967; 62110; 62900; 70005

== ENCOUNTER 2020-04-01 16:56 | Inpatient (IN) | payer OTHER ==
[~2020-04-01] VITALS: Ht 177.8 cm; Wt 69.9 kg
[2020-04-01] VITALS (16 sets, daily range): BP systolic 106–130; BP diastolic 42–63
[~2020-04-01 16:56] MED LIST changes: +CUBICIN500 MG IVPB; +LACTULOSE20 GM/30 M PO; +LANTUS SUBQ; +LIPITOR10 MG PO; +NYSTATIN15 G1 TOP
[2020-04-01 18:01] LABS: MONOCYTES 7.4 % (1.0-8.0); PLATELET COUNT 123 thou/uL (150-400)
[2020-04-01 18:02] LABS: BASOPHILS 0.5 % (0.0-2.0); MCH 30.9 pg (26.0-34.0); MCHC 34.3 g/dL (28.0-37.0); POLYS 77.1 % (36.0-66.0); RDW 18.3 % (10.5-14.5); WBC 9.1 thou/uL (4.0-11.0)
[2020-04-01 18:08] LABS: HEMATOCRIT 10.8 % (42.0-52.0); HEMOGLOBIN 3.7 gm/dL (14.0-18.0)
[2020-04-01 18:10] LABS: CALCIUM 8.2 mg/dL (8.5-10.1); CREATININE 1.5 mg/dL (0.7-1.3)
[2020-04-01 18:27] LABS: URINE BILIRUBIN NEGATIVE (Negative); URINE BLOOD NEGATIVE (Negative); URINE CLARITY CLEAR; URINE COLOR YELLOW; URINE GLUCOSE-RANDOM* NEGATIVE (Negative); URINE KETONES NEGATIVE (Negative); URINE LEUKOCYTES-REFLEX NEGATIVE (Negative); URINE NITRITE-REFLEX NEGATIVE (Negative); URINE PROTEIN (DIPSTICK) NEGATIVE (Negative); URINE UROBILINOGEN 0.2 E.U./dl (0.2-1.0)
[2020-04-01 18:45] LABS: ALBUMIN 2.6 g/dL (3.4-5.0); DIRECT BILIRUBIN 0.2 mg/dL (<0.1-0.2); TOTAL BILIRUBIN 0.7 mg/dL (0.2-1.0); TOTAL PROTEIN 6.8 g/dL (6.4-8.2)
[2020-04-01 19:12] LABS: OBSERVED RETIC COUNT 12.49 % (0.6-2.6)
[2020-04-01] MEDS ORDERED: GERI-HYDROLAC222 M1 TOP (19:12)
[2020-04-01] MEDS ORDERED: VITAMIN C500 M2 PO (19:15)
[2020-04-01] MEDS ORDERED: CUBICIN500 MG IVPB (19:16)
[2020-04-01] MEDS ORDERED: FERRETTS325 MG PO (19:17)
[2020-04-01] MEDS ORDERED: LANTUSSOLASTAR SUBQ ×2 (19:18→19:19)
[2020-04-01] MEDS ORDERED: ACIDOPHILUS LA1 EAC1 PO (19:20)
[2020-04-01] MEDS ORDERED: HUMALOG100 UNIT/1 SUBQ (19:20)
[2020-04-01] MEDS ORDERED: NORCO 5-325 TA1 EAC1 PO (19:21)
[2020-04-01] MEDS ORDERED: LASIX 40 MG TAB40 MG PO (19:21)
[2020-04-01] MEDS ORDERED: PERCOCET 5-3251 EACH PO (19:22)
[2020-04-01] MEDS ORDERED: PROPRANOLOL 20M20 M1 PO (19:22)
[2020-04-01] MEDS ORDERED: SPIRONOLACTONE100 M3 PO (19:23)
[2020-04-01] MEDS ORDERED: ONDANSETRON ODT4 MG PO (19:24)
[2020-04-01] MEDS ORDERED: LACTULOSE10 GM/152 PO (19:24)
[2020-04-02] VITALS (54 sets, daily range): BP systolic 101–155; BP diastolic 46–71
[2020-04-02 07:02] LABS: HEMATOCRIT 18.1 % (42.0-52.0); HEMOGLOBIN 6.2 gm/dL (14.0-18.0)
[2020-04-02 19:26] LABS: HEMATOCRIT 20.7 % (42.0-52.0); HEMOGLOBIN 7.2 gm/dL (14.0-18.0)
[2020-04-03] VITALS (25 sets, daily range): BP systolic 108–158; BP diastolic 52–84
[2020-04-03 05:00] LABS: HEMATOCRIT 21.1 % (42.0-52.0); HEMOGLOBIN 7.1 gm/dL (14.0-18.0); MCH 29.5 pg (26.0-34.0); MCHC 33.8 g/dL (28.0-37.0); MCV 87.2 fL (80.0-100.0); RBC 2.42 mil/uL (4.50-6.00); RDW 19.3 % (10.5-14.5); WBC 11.2 thou/uL (4.0-11.0)
[2020-04-03 05:12] LABS: ALBUMIN 2.4 g/dL (3.4-5.0); CALCIUM 7.8 mg/dL (8.5-10.1); CREATININE 1.4 mg/dL (0.7-1.3); MAGNESIUM 1.6 mg/dL (1.8-2.4); PHOSPHORUS 3.3 mg/dL (2.5-4.9); POTASSIUM 3.6 mmol/L (3.5-5.1)
--- NOTE | 2020-04-03 12:36 | HC ---
[facility] [place] [address] [place] [address] CONSULTATION Name: ROEL GIPSON Room #: [facility]- ADM IN M.R.#: [id number] Admission: 04/01/20 Attend Phys: Hal Charles MD Discharge: Date of : 58 Report #: [id number] THIS REPORT FOR: cc: RANDALL MAKI MD Physician not on staff Rayo Calderon MD ~ CC: Hal MAKI Physician staff DATE OF SERVICE: 04/02/2020 WOUND CARE CONSULTATION NOTE REASON FOR CONSULTATION: Infection of left hip surgical wound and bilateral lower extremity venostasis with inflammation. HISTORY OF PRESENT ILLNESS: The patient is a 59-year-old gentleman with a history of diabetes mellitus type 2, hepatic cirrhosis, and esophageal varices, admitted for abnormal lab results with hemoglobin of 3.7 and dark stools. He has received transfusion. He is a patient of Dr. Gomez of [facility], who was treated for fracture of the left hip approximately on 12/14/2019 with left hip replacement. Left hip replacement surgery was complicated by postsurgical infection approximately in mid February. The patient states he had 3 surgeries related to infection of the left prosthetic hip with methicillin-resistant Staphylococcus aureus with hardware replacement. The patient had recently been discharged from the hospital on 03/17 and was in rehabilitation. The patient states that rehabilitation was not going well. The patient was admitted at this time due to low hemoglobin of 3.7 and hematochezia with dark stool. He has been transfused 1 unit of packed cells. The patient has been noting some drainage of purulent material from the left hip incision. He was scheduled to see Dr. Gomez on Saturday. 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 PAST SURGICAL HISTORY: Left total hip replacement approximately on 12/13, left hip hardware exchange approximately in mid February, left second toe amputation, and multiple paracenteses. FAMILY HISTORY: Coronary artery disease. ALLERGIES: None. [facility] [address] [place] [address] CONSULTATION Name: ROEL GIPSON Room #: 211-P ADM IN M.R.#: [id number] Admission: 04/01/20 Attend Phys: Hal Charles MD Discharge: Date of : 58 Report #: [id number] MEDICATIONS: See chart. LABORATORY DATA: Previously hemoglobin 3.7, hematocrit 10.8; albumin 2.6. PHYSICAL EXAMINATION: GENERAL: Shows chronically ill-appearing 59-year-old gentleman, who is alert, pleasant, and conversant. HEENT: Dentition is poor. His sclerae are white. NECK: Supple. LUNGS: Respirations are unlabored. HEART: Shows regular rate and rhythm. ABDOMEN: Soft. MUSCULOSKELETAL/EXTREMITIES: Examination of the left hip area shows a vertical linear incision approximately 15 cm long with intact patrick. There is brawny induration in this area and yellowish pus draining from the incision line in a mild amount. There is no associated redness. Examination of the lower extremities shows left second toe amputation. There are chronic venostasis changes of bilateral lower extremities with swelling and minor superficial ulceration almost completely healed and dry scaly skin. IMPRESSION: 1. Infection of left total hip replacement with history of multiple surgeries, now with some purulent drainage. 2. Anemia with hematochezia. 3. History of methicillin-resistant Staphylococcus aureus of the left hip. 4. Bilateral lower extremity venostasis with inflammation and ulceration, now almost completely healed. 5. History of hepatitis C. 6. Diabetes mellitus type 2 with skin complications. PLAN: 1. Consult [facility]. 2. Antibiotics per Infectious Disease. 3. Diabetes control. 4. Simple dry dressing to the drainage of the left hip. 5. [facility] will need to make decisions regarding any opening of the incision. 6. Simple barrier cream to dry skin of bilateral lower extremities. 7. Wound Care team will follow up. <ELECTRONICALLY SIGNED> By: Rayo Calderon MD 04/03/20 1236 0701 0757 Rayo Calderon MD /nt
[2020-04-03 12:40] LABS: HEMOGLOBIN 6.6 gm/dL (14.0-18.0)
[2020-04-03 12:41] LABS: MCH 29.5 pg (26.0-34.0); MCHC 33.3 g/dL (28.0-37.0); MCV 88.5 fL (80.0-100.0); RBC 2.23 mil/uL (4.50-6.00); RDW 19.8 % (10.5-14.5); WBC 15.3 thou/uL (4.0-11.0)
[2020-04-03 12:43] LABS: HEMATOCRIT 19.7 % (42.0-52.0)
[2020-04-03 18:38] LABS: HEMATOCRIT 21.4 % (42.0-52.0); HEMOGLOBIN 7.2 gm/dL (14.0-18.0)
[2020-04-04] VITALS (10 sets, daily range): BP systolic 115–152; BP diastolic 56–73
[2020-04-04 09:20] LABS: HEMATOCRIT 22.6 % (42.0-52.0); HEMOGLOBIN 7.6 gm/dL (14.0-18.0); MCH 29.9 pg (26.0-34.0); MCHC 33.6 g/dL (28.0-37.0); MCV 88.9 fL (80.0-100.0); RBC 2.54 mil/uL (4.50-6.00); RDW 18.4 % (10.5-14.5); WBC 11.9 thou/uL (4.0-11.0)
[2020-04-04 09:34] LABS: ALBUMIN 2.2 g/dL (3.4-5.0); CALCIUM 7.4 mg/dL (8.5-10.1); CREATININE 1.6 mg/dL (0.7-1.3); PHOSPHORUS 4.2 mg/dL (2.5-4.9); POTASSIUM 4.2 mmol/L (3.5-5.1)
[2020-04-04 11:30] LABS: INR 1.4; PROTIME 14.4 Seconds (9.3-11.4)
[2020-04-05] VITALS (7 sets, daily range): BP systolic 116–143; BP diastolic 58–80
[2020-04-05 06:40] LABS: HEMATOCRIT 21.9 % (42.0-52.0); HEMOGLOBIN 7.5 gm/dL (14.0-18.0); MCH 30.5 pg (26.0-34.0); MCHC 34.2 g/dL (28.0-37.0); MCV 89.2 fL (80.0-100.0); RBC 2.45 mil/uL (4.50-6.00); RDW 19.4 % (10.5-14.5); WBC 10.9 thou/uL (4.0-11.0)
[2020-04-05 06:57] LABS: CALCIUM 7.3 mg/dL (8.5-10.1); CREATININE 1.3 mg/dL (0.7-1.3); PHOSPHORUS 3.3 mg/dL (2.5-4.9); POTASSIUM 3.9 mmol/L (3.5-5.1)
[2020-04-06 04:00] VITALS: BP 125/60
[2020-04-06 06:06] LABS: HEMATOCRIT 21.3 % (42.0-52.0); HEMOGLOBIN 7.3 gm/dL (14.0-18.0); MCH 30.7 pg (26.0-34.0); MCHC 34.3 g/dL (28.0-37.0); MCV 89.5 fL (80.0-100.0); RBC 2.39 mil/uL (4.50-6.00); RDW 20.4 % (10.5-14.5); WBC 8.7 thou/uL (4.0-11.0)
--- NOTE | 2020-04-06 07:45 | O ---
[address] [address] OPERATIVE REPORT Name: ROEL GIPSON Room #: [facility]- ADM IN M.R.#: [id number] Admission: 04/01/20 Attend Phys: Hal Charles MD Discharge: Date of : 58 Report #: [id number] THIS REPORT FOR: cc: RANDALL MAKI MD Physician not on staff Florin Martinez MD ~ CC: Hal MAKI Physician staff DATE OF SERVICE: 04/03/2020 SERVICE: Orthopedics. FACILITY: [facility]. SURGEON: Florin Martinez MD SECOND SURGEON: Dr. Fercho Guerra. MACHINERY MECHANIC: Veronika Childers NP INDICATION FOR SECOND SURGEON: Increased complexity of the procedure for exposure, implantation and placement and fixation of the antibiotic spacer prosthesis. PREOPERATIVE DIAGNOSES: 1. Infected left hip hemiarthroplasty. 2. Status post left hip hemiarthroplasty for femoral neck fracture with multiple irrigation and debridement procedures previously. 3. Uncontrolled diabetes mellitus. 4. Cirrhosis of the liver with ascites. 5. Anemia. 6. Malnutrition. POSTOPERATIVE DIAGNOSES: 1. Infected left hip hemiarthroplasty. 2. Status post left hip hemiarthroplasty for femoral neck fracture with multiple irrigation and debridement procedures previously. 3. Uncontrolled diabetes mellitus. 4. Cirrhosis of the liver with ascites. 5. Anemia. 6. Malnutrition. PROCEDURES: 1. Removal of deep orthopedic implant, left hip. [address] [address] OPERATIVE REPORT Name: ROEL GIPSON Room #: [address] [place] [address] [place] ..#: [id number] Admission: 04/01/20 Attend Phys: Hal Charles MD Discharge: Date of : 58 Report #: [id number] 2. Placement of antibiotic spacer hemiarthroplasty of the left hip. 3. Irrigation and debridement down to bone, left hip. COMPLICATIONS: None. DRAINS: A 1/8 inch Hemovac. SPECIMENS: Intraoperative cultures. ESTIMATED BLOOD LOSS: 250 mL. FINDINGS: 1. Purulence contained primarily within the soft tissues. 2. Successful removal of previously placed antibiotic cement beads. 3. Intraoperative x-ray taken prior to waking the patient up to confirm appropriate position of the implant and no abnormalities with the previous prosthesis or fractures. HISTORY: The patient is a gentleman who sustained a left hip femoral neck fracture in December of this year. He underwent hemiarthroplasty and unfortunately subsequently developed a significant infection. He has had 3 surgical debridements of the infected hip and including a head exchange and placement of antibiotic bead, but unfortunately the infection persisted and he presented to the hospital 2 days ago with an extremely low hemoglobin of 3.4 approximately and purulent drainage from the wound. He was transfused and stabilized and then he was indicated for surgical treatment. We made plans for removal of the implant and debridement and then placement of an antibiotic spacer with the feeling that there is a reasonable chance based on his medical comorbidities that he may not be able to proceed to a formal revision total hip arthroplasty if he remains medically stable and with minimal pain and he is not interested in proceeding further. Therefore, we selected a prefabricated cement spacer hemiarthroplasty. Risks, benefits, alternatives, and indication for surgery were discussed with him in detail. Risks include but not limited to pain, bleeding, infection, injury to nerves or blood vessels, persistent pain, progression of the infection, need for further surgery as well as complications related to anesthesia such as stroke, heart attack, pulmonary complications, thromboembolic disease and . Despite the risks, he wished to proceed. PROCEDURE IN DETAIL: After the left lower extremity was correctly identified in the preoperative holding area as the operative extremity, the patient was taken to the operating room where general anesthesia was induced without complication. He was padded appropriately after being turned into lateral decubitus position with the left side up and right side down. He is on antibiotic regimen. We prepped and draped the left side in standard sterile fashion and then we performed time-out procedure. [address] [address] OPERATIVE REPORT Name: ROEL GIPSON Room #: 211-P [facility] IN M.R.#: [id number] Admission: 04/01/20 Attend Phys: Hal Charles MD Discharge: Date of : 58 Report #: [id number] The previous incision was opened along its entire length. Purulence was seen to be egress from the distal portion of the wound and dissection was taken down through the thickened scar and soft tissue laterally and then down to the gluteus musculature. The trochanter was then visualized and the previous posterior capsular closure was exposed. It had not healed adequately. There was some beefy granulation tissue in this region and really there was minimal to no purulence deep. The previous antibiotic beads were removed as a whole unit. We confirmed that there were no residual beads that had broken off and then we dislocated the hip. The femoral head and sleeve were then popped off with the impactor and a mallet and then passed off and then we assessed the femoral component, which had ingrowth around the femoral component circumferentially and was quite secure. There was no evidence of loosening. We used a flexible osteotome to free up the calcar and metaphysis around the implant and then we placed a clamp and a slap hammer on the femoral neck trunnion and successfully removed the implant from the proximal femur. I then used a curette down the length of the femur to debride the tissue within and then thoroughly irrigated the canal and all of the soft tissues. Rongeur was used to excise a film of tissue within the acetabulum and then the acetabulum was irrigated as well. We then completed the debridement of the bone layer intraosseously and then used a trial of the [employer] prefabricated antibiotic impregnated cement spacer and placed within the position and trialled with a small head, which is a 46 mm head that best matched his 50 mm head that was removed with the hemiarthroplasty. The trial fit nicely. We assessed the hip for stability length and he was extremely stable in all positions and really the implant fit him nicely and provided good stability, so we dislocated and removed the trial and then finished preparing the bone, irrigated it once more and then placed the final implant, cementing the head to the neck portion and then performing a ball of cement around the calcar. This was antibiotic impregnated cement and was allowed to cure with the hip reduced and the component in the appropriate version on the femur. We molded the metaphyseal fit of the cement in order to have a good seal and secure fixation. The wound was then copiously irrigated once more after the cement cured. We performed a debridement of the soft tissues began with a Dailey elevator and scissors, working all the way superficially and then closed the posterior capsular layer and the gluteus layer with #1 PDS suture in [id number] interrupted suture fashion and then proceeded working through the soft tissues with #1 PDS, #0 PDS, ultimately with 2-0 PDS. During the closure, we noted on the back table that we had the femoral component and the femoral head, but not the sleep liner and we wanted to ensure that this was not inadvertently left within the soft tissues so we called for an intraoperative x-ray and took full x-ray of the pelvis, the hip, the soft tissues laterally and distally and confirmed that there was no retained previous hip implant. At this point, the skin layer was closed with patrick and then a silver impregnated negative pressure wound dressing was applied to the left hip and then the [address] [place] [address] OPERATIVE REPORT Name: ROEL GIPSON Room #: [facility] IN M.R.#: [id number] Admission: 04/01/20 Attend Phys: Hal Charles MD Discharge: Date of : 58 Report #: [id number] patient was awakened from anesthesia and taken to recovery room in stable condition. There were no complications and all counts were recorded as correct. <ELECTRONICALLY SIGNED> By: Florin Martinez MD 04/06/20 0745 1246 1412 Florin Martinez MD /nt
[2020-04-06 08:00] VITALS: BP 143/64
[2020-04-06] MEDS ORDERED: CIPRO500 M1 PO (08:00)
[2020-04-06 12:00] VITALS: BP 102/70
[2020-04-06 16:00] VITALS: BP 134/73
--- NOTE | 2020-04-06 16:06 | PATH ---
[facility] [place] [address] PATHOLOGY RPT PROCEDURE Name: ROEL GIPSON Room #: 211-P ADM IN M.R.#: [id number] Admission: 04/01/20 Date of : 58 Discharge: Report #: [id number] Path Case #: [id number] [facility] Accession Number: [id number] . 01 Material submitted: . stomach - ANTRAL BX . 01 Clinical history: . Pre-op diagnosis: GI bleed; history of varices Post-op diagnosis: Esophageal and gastric varices; portal hypertensive gastropathy R/O H. pylori . 02 Diagnosis: Gastric mucosa, antrum to rule out H. pylori, endoscopic biopsy: - Mild reactive gastropathy. - Negative for intestinal metaplasia or atrophy. - Negative for Helicobacter pylori (properly-controlled immunohistochemical stain performed). . (IUV:mml; 04/06/2020) QLM 04/06/2020 1210 Local . 02 Electronically signed: . Amita Hdz MD, Pathologist NPI- [id number] . 01 Gross description: . The specimen is received in formalin, labeled "Roel Gipson, antral biopsy, R/O H. pylori". Received is a segment of pale appiah soft tissue measuring 0.4 cm in maximum dimensions. The specimen is submitted entirely in cassette A1. ([facility]; 04/05/2020) QA/QA 04/05/2020 1653 Local . 02 Pathologist provided ICD-10: K31.9 . 02 CPT . 465386, [id number] Specimen Comment: A courtesy copy of this report has been sent to [phone] Specimen Comment: Report sent to ,DR MAKI / DR PORTILLO Performed at: [address] [id number] MD Kaushik Alcala MD Phone: [phone] Performed at: [address] [address] PATHOLOGY RPT PROCEDURE Name: ROEL GIPSON Room #: 211-P ADM IN M.R.#: [id number] Admission: 04/01/20 Date of : 58 Discharge: Report #: [id number] Path Case #: [id number] [address] [id number] MD Amita Hdz MD Phone: [phone]
[2020-04-06 19:20] VITALS: BP 136/78
[2020-04-07] VITALS: BP 121/62
[2020-04-07 03:30] VITALS: BP 119/58
[2020-04-07 07:34] VITALS: BP 125/64
[2020-04-07 11:19] VITALS: BP 114/50
[2020-04-07 15:13] VITALS: BP 114/59
[2020-04-08 00:45] VITALS: BP 124/69
[2020-04-08 04:36] VITALS: BP 126/63
[2020-04-08 08:00] VITALS: BP 124/64
[2020-04-08 12:00] VITALS: BP 120/63
[2020-04-08 16:00] VITALS: BP 138/80
[2020-04-08 20:30] VITALS: BP 143/67
[2020-04-09 04:45] VITALS: BP 124/54
[2020-04-09 05:21] LABS: HEMATOCRIT 22.6 % (42.0-52.0); HEMOGLOBIN 7.6 gm/dL (14.0-18.0); MCHC 33.7 g/dL (28.0-37.0); MCV 89.2 fL (80.0-100.0); RBC 2.54 mil/uL (4.50-6.00); RDW 19.9 % (10.5-14.5); WBC 7.5 thou/uL (4.0-11.0)
[2020-04-09 05:48] LABS: ALBUMIN 2.3 g/dL (3.4-5.0); CALCIUM 7.7 mg/dL (8.5-10.1); CREATININE 1.4 mg/dL (0.7-1.3); POTASSIUM 4.4 mmol/L (3.5-5.1); TOTAL BILIRUBIN 0.9 mg/dL (0.2-1.0); TOTAL PROTEIN 7.2 g/dL (6.4-8.2)
[2020-04-09 08:14] VITALS: BP 111/58
[2020-04-09 21:05] VITALS: BP 125/61
[2020-04-10 03:35] VITALS: BP 116/61
[2020-04-10 05:38] LABS: HEMOGLOBIN 6.9 gm/dL (14.0-18.0); RBC 2.29 mil/uL (4.50-6.00)
[2020-04-10 05:41] LABS: HEMATOCRIT 20.5 % (42.0-52.0); MCH 30.2 pg (26.0-34.0); MCHC 33.8 g/dL (28.0-37.0); MCV 89.3 fL (80.0-100.0); RDW 19.6 % (10.5-14.5); WBC 5.7 thou/uL (4.0-11.0)
[2020-04-10 06:01] LABS: CALCIUM 7.5 mg/dL (8.5-10.1); CREATININE 1.4 mg/dL (0.7-1.3); PHOSPHORUS 3.2 mg/dL (2.5-4.9); POTASSIUM 4.2 mmol/L (3.5-5.1)
[2020-04-10 07:45] VITALS: BP 131/75
[2020-04-10 15:29] VITALS: BP 121/63; BP 138/74
[2020-04-10 16:03] VITALS: BP 137/62
[2020-04-10 20:05] VITALS: BP 130/68
[2020-04-11 05:04] VITALS: BP 121/64
[2020-04-11 06:29] LABS: HEMATOCRIT 23.4 % (42.0-52.0); HEMOGLOBIN 7.9 gm/dL (14.0-18.0); MCH 29.9 pg (26.0-34.0); MCHC 33.8 g/dL (28.0-37.0); MCV 88.5 fL (80.0-100.0); RBC 2.65 mil/uL (4.50-6.00); RDW 18.5 % (10.5-14.5); WBC 6.5 thou/uL (4.0-11.0)
--- NOTE | 2020-04-11 08:00 | HC ---
[facility] [place] [address] CONSULTATION Name: ROEL GIPSON Room #: 9- ADM IN M.R.#: [id number] Admission: 04/01/20 Attend Phys: Hal Charles MD Discharge: Date of : 58 Report #: [id number] THIS REPORT FOR: cc: RANDALL MAKI MD Physician not on staff Sanjiv Witt MD ~ CC: Hal MAKI Physician staff DATE OF SERVICE: 04/04/2020 CHIEF COMPLAINT: Venous dermatitis of the lower extremities. HISTORY OF PRESENT ILLNESS: This is a 59-year-old male patient who has a history of left hip fracture, status post multiple revisions, was brought to the Emergency Room with generalized weakness, found to have a hemoglobin of 3.7. It was also felt that he had increased drainage from the left hip and underwent an explantation of the left hip hemiarthroplasty and incision and drainage to the left hip bone and placement of an antibiotic spacer in his left hip. He is noted to have venous type dermatitis to the lower extremities and I have been asked to see him in this regard. The patient complains of significant pain in his hip. States he is feeling better since he has received blood. PAST MEDICAL HISTORY: Positive for history of diabetes mellitus. He is status post amputation of his third toe on the left foot. He has a history of liver cirrhosis, hepatitis C, hyperlipidemia, esophageal varices, type 2 diabetes mellitus, left hip replacement, left hip hardware exchange. SOCIAL HISTORY: The patient denies any alcohol or tobacco use currently. FAMILY HISTORY: Positive for coronary artery disease, hypertension and diabetes. MEDICATIONS: Include lactulose, glipizide, insulin, daptomycin, atorvastatin, spironolactone, propranolol. REVIEW OF SYSTEMS: CONSTITUTIONAL: The patient denies fever, chills or weight loss. NEUROLOGICAL: The patient denies focal weakness, numbness or tingling. EYES: The patient denies visual changes, redness, or drainage. ENT: The patient denies earache, nasal drainage, sore throat. CARDIOVASCULAR: The patient denies chest pain, palpitations or diaphoresis. PULMONARY: The patient denies cough or shortness of breath. GASTROINTESTINAL: The patient denies nausea, vomiting, diarrhea or abdominal pain. [address] [address] CONSULTATION Name: ROEL GIPSON Room #: 439-P [facility] IN M.R.#: [id number] Admission: 04/01/20 Attend Phys: Hal Charles MD Discharge: Date of : 58 Report #: [id number] ORTHOPEDIC: The patient complains of significant pain in his left hip. There is a Prevena VAC in place. Other systems in a 14-point review of systems are negative. PHYSICAL EXAMINATION: VITAL SIGNS: Include temperature 36.3, pulse 77, respiratory rate 21, blood pressure 115/52. GENERAL: This is a chronically ill-appearing male patient with no distress. HEENT: Head normocephalic. Nose and throat clear. NECK: Supple. LUNGS: Clear. HEART: Regular. ABDOMEN: Soft. Bowel sounds present and examined. It is slightly distended and mildly tender. There appears to maybe be some ascites present. EXTREMITIES: The left hip demonstrates Prevena VAC in place over the incision. Therefore, the incision cannot be visualized. Bilateral lower extremities demonstrate venous dermatitis. No open up ulcerations. Feet, previous surgical site is intact. LABORATORY DATA: Sodium 127, potassium 4.0, chloride 95, CO2 of 24, BUN 59, creatinine 1.5, glucose is 398, albumin 2.6. White blood cell count 9.1 with a hemoglobin initially 3.7. CLINICAL IMPRESSION: 1. Venous dermatitis to bilateral lower extremities. 2. Diabetes mellitus. 3. Liver cirrhosis. 4. Left hip infection, status post hardware exchange. 5. Severe protein-calorie malnutrition, albumin 2.0. RECOMMENDATIONS: We will recommend topical AmLactin lotion to his legs bilaterally and elevation of his legs for edema control. Surgical dressings are currently managed by Orthopedics on the hip. Continue with medical management of his diabetes mellitus, bump nutrition as he can tolerate. I appreciate being asked to see him again in consultation. <ELECTRONICALLY SIGNED> By: Sanjiv Witt MD 04/11/20 0800 [id number] Sanjiv Witt MD /nt
[2020-04-11 08:13] VITALS: BP 125/62
[2020-04-11 14:43] LABS: HEMATOCRIT 23.5 % (42.0-52.0)
[2020-04-11 15:22] VITALS: BP 125/67
[2020-04-11 19:31] VITALS: BP 140/67
[2020-04-12 03:53] VITALS: BP 115/60
[2020-04-12 07:20] VITALS: BP 115/59
--- NOTE | 2020-04-12 13:30 | P ---
[facility] [place] [address] PROCEDURE REPORT Name: ROEL GIPSON Room #: 9 ADM IN M.R.#: [id number] Admission: 04/01/20 Attend Phys: Hal Charles MD Discharge: Date of : 58 Report #: [id number] THIS REPORT FOR: cc: RANDALL MAKI MD Physician not on staff [facility] MD ~ CC: Hal MAKI Physician staff INPATIENT COLONOSCOPY REPORT BRIEF HISTORY: The patient is a 59-year-old male who has had a recent marked drop in hemoglobin down to 3.7. He did have a Hemoccult-positive stool. He does have chronic liver disease. An upper endoscopy several weeks ago revealed evidence of small esophageal varices and gastric varices, which were nonbleeding. PREOPERATIVE DIAGNOSIS: Marked blood loss anemia. POSTOPERATIVE DIAGNOSES: Small internal hemorrhoids. MEDICATIONS: Deep sedation with propofol per anesthesia. SPECIMEN: None. ESTIMATED BLOOD LOSS: None. PROCEDURE: Colonoscopy to cecum and terminal ileum. FINDINGS: Prior to propofol sedation, procedure of colonoscopy discussed with the patient as well as potential risks and its complications. He indicates he understands and desires to proceed. DESCRIPTION OF PROCEDURE: With the patient in left lateral decubitus position, digital examination was completed, which revealed no abnormalities. Subsequently, the Olympus video colonoscope was introduced into the rectum, advanced under direct vision to the cecum. This was done with minimal difficulty. Cecum was identified by the ileocecal valve and the appendiceal orifice. I was able to visualize the distal segment of terminal ileum, which was inspected and noted to be unremarkable. There was no evidence of inflammatory disease. Also, there was no evidence of bleeding. At that point, the scope was slowly withdrawn and careful circumferential views were obtained. There were limitations of prep. As we withdrew the scope, we extensively washed and irrigated the colon and overall a reasonably good view was obtained. The mucosa was within normal limits, normal vascular pattern, normal light reflex. No neoplastic lesions were seen. There is no evidence of actively bleeding [facility] [address] [place] [address] PROCEDURE REPORT Name: ROEL GIPSON Room #: 439- ADM IN M.R.#: [id number] Admission: 04/01/20 Attend Phys: Hal Charles MD Discharge: Date of : 58 Report #: [id number] lesions. Diverticular disease was not seen. Scope was withdrawn in the rectum and upon retroflexion, small internal hemorrhoids were seen. Scope was withdrawn. The patient tolerated the procedure well. CONDITION OF THE PATIENT UPON DISCHARGE: Following procedure, the patient drowsy, aroused, and conversant and will be discharged home when fully ambulatory. INSTRUCTIONS TO THE PATIENT AND FAMILY AT THE TIME OF DISCHARGE: No neoplastic lesions were seen. A bleeding lesion was not identified. The source of his blood loss is not entirely clear. I do not see an obvious source for blood loss today. A small bowel capsule study may be a consideration. This could be done as an outpatient or in the hospital if there is further evidence of bleeding. Continue to monitor hemoglobin at this time. <ELECTRONICALLY SIGNED> By: Solis Sevilla MD 04/12/20 1330 1313 1324 Solis Sevilla MD /nt
[2020-04-12 17:37] VITALS: BP 117/58
[2020-04-12 19:30] VITALS: BP 110/57
[2020-04-13 03:00] VITALS: BP 113/66
[2020-04-13 10:02] VITALS: BP 125/72
[2020-04-13 12:01] LABS: HEMATOCRIT 25.4 % (42.0-52.0); HEMOGLOBIN 8.4 gm/dL (14.0-18.0)
[2020-04-13 18:16] VITALS: BP 126/62
[2020-04-13 19:55] VITALS: BP 120/68
[2020-04-14 04:10] VITALS: BP 118/68
[2020-04-14 07:39] VITALS: BP 130/72
[2020-04-14 15:40] VITALS: BP 94/61
[2020-04-14 20:10] VITALS: BP 113/66
[2020-04-15 03:50] VITALS: BP 128/78
[2020-04-15 08:12] VITALS: BP 119/71
[2020-04-15 15:24] VITALS: BP 111/59
[2020-04-15] MEDS ORDERED: PERCOCET 5-3251 EACH PO (17:44)
== END 2020-04-15 18:11 | DRG 463 ==
LOC: ER 16:56 → ICU 18:54 → 2N 18:54 → EROBS 18:54 → ICU 20:32 → 2N 04-03 04:51 → 4S 04-09 15:25
PROVIDERS: Hospitalist; Nurse Practitioner Family; Orthopaedic Surgery Sports Medicine; Specialist; ADMIT Hospitalist; ATTEND Hospitalist
PROC: 02HV33Z Insertion of Infusion Device into Superior Vena Cava, Percutaneous Approach (ICD-10-PCS; principal; 2020-04-01)
PROC: 0S9B0ZZ Drainage of Left Hip Joint, Open Approach (ICD-10-PCS; 2020-04-03)
PROC: 0SHB08Z Insertion of Spacer into Left Hip Joint, Open Approach (ICD-10-PCS; 2020-04-03)
PROC: 0SPB0JZ Removal of Synthetic Substitute from Left Hip Joint, Open Approach (ICD-10-PCS; 2020-04-03)
PROC: 30233N1 Transfusion of Nonautologous Red Blood Cells into Peripheral Vein, Percutaneous Approach (ICD-10-PCS; 2020-04-03)
PROC: 0W9G3ZZ Drainage of Peritoneal Cavity, Percutaneous Approach (ICD-10-PCS; 2020-04-04)
PROC: 0DB68ZX Excision of Stomach, Via Natural or Artificial Opening Endoscopic, Diagnostic (ICD-10-PCS; 2020-04-05)
PROC: 0DJD8ZZ Inspection of Lower Intestinal Tract, Via Natural or Artificial Opening Endoscopic (ICD-10-PCS; 2020-04-12)
DX: T84.52XA Infection and inflammatory reaction due to internal left hip prosthesis, initial encounter (principal); K29.81 Duodenitis with bleeding; I85.01 Esophageal varices with bleeding; E43 Unspecified severe protein-calorie malnutrition; N17.0 Acute kidney failure with tubular necrosis; R18.8 Other ascites; K76.6 Portal hypertension; Y83.8 Other surgical procedures as the cause of abnormal reaction of the patient, or of later complication, without mention of misadventure at the time of the procedure; Y92.89 Other specified places as the place of occurrence of the external cause; D50.0 Iron deficiency anemia secondary to blood loss (chronic); B19.20 Unspecified viral hepatitis C without hepatic coma; D69.6 Thrombocytopenia, unspecified; B95.62 Methicillin resistant Staphylococcus aureus infection as the cause of diseases classified elsewhere; E11.65 Type 2 diabetes mellitus with hyperglycemia; B18.2 Chronic viral hepatitis C; Z20.828 Contact with and (suspected) exposure to other viral communicable diseases; K74.60 Unspecified cirrhosis of liver; E78.5 Hyperlipidemia, unspecified; Z96.642 Presence of left artificial hip joint; L30.8 Other specified dermatitis; K64.8 Other hemorrhoids; E11.22 Type 2 diabetes mellitus with diabetic chronic kidney disease; N18.9 Chronic kidney disease, unspecified; I86.4 Gastric varices; K31.89 Other diseases of stomach and duodenum; I12.9 Hypertensive chronic kidney disease with stage 1 through stage 4 chronic kidney disease, or unspecified chronic kidney disease; K72.90 Hepatic failure, unspecified without coma; E11.622 Type 2 diabetes mellitus with other skin ulcer; Z83.3 Family history of diabetes mellitus; Z82.49 Family history of ischemic heart disease and other diseases of the circulatory system; Z89.422 Acquired absence of other left toe(s); Z79.4 Long term (current) use of insulin
CPT/HCPCS: 10081; 10102; 10204; 10797; 27000; 50101; 50382; 50414; 50939; 51057; 51130; 51225; 51226; 51412; 53078; 56460; 56524; 56528; 56530; 57095; 57103; 57115; 57242; 58150; 58151; 62110; 62900; 70005

== ENCOUNTER 2020-04-27 12:03 | Inpatient (IN) | payer OTHER ==
[~2020-04-27] VITALS: Ht 177.8 cm; Wt 75.3 kg
--- NOTE | ~2020-04-27 | HC ---
[facility] [place] [address] CONSULTATION Name: ROEL GIPSON Room #: 364- ADM IN M.R.#: [id number] Admission: 04/27/20 Attend Phys: Warren Romero MD Discharge: Date of : 58 Report #: [id number] THIS REPORT FOR: cc: [facility] - Family physician unknown FAM - Family physician unknown Gardenia Paulino MD ~ CC: JUS unknown Warren Romero REASON FOR CONSULTATION: Elevated creatinine. REASON FOR PRESENTATION: Hip pain. HISTORY OF PRESENT ILLNESS: This is a very well-known patient to me. He is a 59-year-old with history of left total hip replacement complicated by septic arthritis for which he was receiving antibiotics. He is also known to have cirrhosis with history of hepatitis C. We have seen this patient for an acute kidney injury back in March. At that time, we treated him conservatively and his creatinine has leveled anywhere from 1.3-1.5. He presented on the the with left hip pain and is currently followed by multiple consultants including Infectious Disease, Orthopedic, GI. He is being treated for COVID-19. He has left hip hemiarthroplasty surgical site infections with a finding of acetabular osteomyelitis. He is in need for an explantation of his hardware with Girdlestone procedure planned down the road. The patient's creatinine on arrival to the Emergency Room was 1.3. It has been fluctuating anywhere from 1.4-1.6 mandating a Nephrology consultation. Urine electrolytes showed high urine sodium at 49. PAST MEDICAL HISTORY: Extensive and includes the followin. End-stage liver disease. 2. Diabetes mellitus. 3. Hepatitis C. 4. Total left hip arthroplasty complicated by septic arthritis and osteomyelitis. 5. Acute kidney injury. 6. Requirement for long-term antibiotic. 7. Recent COVID-19 infection. MEDICATIONS: 1. Atorvastatin. 2. Propranolol. 3. Spironolactone. 4. Lasix. 5. Lispro insulin. 6. Glipizide. 7. Daptomycin. [facility] [address] [place] [address] CONSULTATION Name: ROEL GIPSON Room #: 364-[facility] IN M.R.#: [id number] Admission: 04/27/20 Attend Phys: Warren Romero MD Discharge: Date of : 58 Report #: [id number] ALLERGIES: None. REVIEW OF SYSTEMS: GENERAL: Significant for weakness and tiredness. CARDIOVASCULAR: No chest pain or palpitation. PULMONARY: No cough or hemoptysis. GASTROINTESTINAL: Occasional abdominal distention, but no nausea or vomiting. GENITOURINARY: No frequency, no urgency. MUSCULOSKELETAL: As per the history of present illness. SOCIAL HISTORY: He denies drug or alcohol abuse. FAMILY HISTORY: No known chronic kidney disease in the family. PHYSICAL EXAMINATION: GENERAL: He is alert, oriented. VITAL SIGNS: Blood pressure is 117/61, temperature is 36.7, pulse rate is 70. HEAD AND NECK: No jugular venous distention. CHEST: No crackles. CARDIOVASCULAR: No rub. ABDOMEN: Soft and slightly distended. EXTREMITIES: Lower extremities, no edema. LABORATORY VALUES: Reviewed. Sodium is stable at 128, potassium is 4.4, BUN is 40, creatinine is 1.5. Hemoglobin is 7.2. Prosthetic joint culture is positive for Staph and Corynebacterium. ASSESSMENT, IMPRESSION AND PLAN: 1. Chronic kidney disease. 2. Left hip hemiarthroplasty infection with acetabular osteomyelitis. 3. COVID-19 with no evidence of active infection. 4. Cirrhosis. 5. Diabetes mellitus. 6. Anemia. 7. The patient's creatinine had been ranging anywhere from 1.3-1.5. I had started the patient on IV albumin. He is euvolemic on my examination and I will stop his diuretics at this point. 8. Continue to address his other comorbid issues including his COVID-19 infection, the current issue with his left hip hemiarthroplasty. This is probably contributing to the fluctuating creatinine and his creatinine is not going to settle until ____ and the infectious processes in his body resolve. 9. Continue to avoid nephrotoxins. [facility] [address] [place] [address] CONSULTATION Name: ROEL GIPSON Room #: 364-P ADM IN M.R.#: [id number] Admission: 04/27/20 Attend Phys: Warren Romero MD Discharge: Date of : 58 Report #: [id number] 10. Continue to watch blood pressure and urine output. 11. We will continue to follow. By: 0820 [id number] Gardenia Paulino MD /nt
[2020-04-27 12:08] VITALS: BP 143/78
[2020-04-27 12:46] LABS: ABSOLUTE NEUTROPHILS 4.1 thou/uL (1.4-8.2); BASOPHILS 0.2 % (0.0-2.0); EOSINOPHILS 0.4 % (0.0-3.0); HEMATOCRIT 24.8 % (42.0-52.0); HEMOGLOBIN 8.4 gm/dL (14.0-18.0); LYMPHOCYTES 15.2 % (24.0-44.0); MCH 28.9 pg (26.0-34.0); MCHC 33.8 g/dL (28.0-37.0); MCV 85.7 fL (80.0-100.0); MONOCYTES 8.7 % (1.0-8.0); PLATELET COUNT 102 thou/uL (150-400); POLYS 75.5 % (36.0-66.0); RDW 15.8 % (10.5-14.5); WBC 5.4 thou/uL (4.0-11.0)
[2020-04-27 12:53] LABS: CALCIUM 7.9 mg/dL (8.5-10.1); CREATININE 1.3 mg/dL (0.7-1.3); POTASSIUM 4.2 mmol/L (3.5-5.1)
[2020-04-27 12:59] LABS: ALBUMIN 2.4 g/dL (3.4-5.0); DIRECT BILIRUBIN 0.5 mg/dL (<0.1-0.2); TOTAL BILIRUBIN 0.8 mg/dL (0.2-1.0); TOTAL PROTEIN 8.7 g/dL (6.4-8.2)
[2020-04-27 14:19] VITALS: BP 136/73
[2020-04-27 20:50] VITALS: BP 145/73
[2020-04-28 08:06] VITALS: BP 144/68
[2020-04-28 08:30] LABS: HEMATOCRIT 22.8 % (42.0-52.0); HEMOGLOBIN 7.9 gm/dL (14.0-18.0); MCH 29.5 pg (26.0-34.0); MCHC 34.6 g/dL (28.0-37.0); MCV 85.2 fL (80.0-100.0); RBC 2.68 mil/uL (4.50-6.00); RDW 15.4 % (10.5-14.5); WBC 5.3 thou/uL (4.0-11.0)
[2020-04-28 08:45] LABS: CREATININE 1.2 mg/dL (0.7-1.3); MAGNESIUM 2.2 mg/dL (1.8-2.4); POTASSIUM 4.6 mmol/L (3.5-5.1)
[2020-04-28 17:20] VITALS: BP 132/74
[2020-04-28 19:37] VITALS: BP 137/79
[2020-04-28 21:38] VITALS: BP 135/76
[2020-04-29 03:34] VITALS: BP 127/65
[2020-04-29 06:02] LABS: HEMATOCRIT 22.3 % (42.0-52.0); HEMOGLOBIN 7.9 gm/dL (14.0-18.0); MCH 29.4 pg (26.0-34.0); MCHC 35.2 g/dL (28.0-37.0); MCV 83.6 fL (80.0-100.0); RBC 2.67 mil/uL (4.50-6.00); RDW 15.4 % (10.5-14.5); WBC 6.3 thou/uL (4.0-11.0)
[2020-04-29 06:18] LABS: CALCIUM 8.2 mg/dL (8.5-10.1); CREATININE 1.4 mg/dL (0.7-1.3); MAGNESIUM 1.8 mg/dL (1.8-2.4); POTASSIUM 4.7 mmol/L (3.5-5.1)
[2020-04-29 15:40] VITALS: BP 135/69
[2020-04-29 19:00] VITALS: BP 114/52
[2020-04-30 03:54] VITALS: BP 108/57
[2020-04-30 05:58] LABS: HEMATOCRIT 21.6 % (42.0-52.0); HEMOGLOBIN 7.5 gm/dL (14.0-18.0); MCH 29.3 pg (26.0-34.0); MCHC 34.7 g/dL (28.0-37.0); MCV 84.5 fL (80.0-100.0); RBC 2.56 mil/uL (4.50-6.00); RDW 15.7 % (10.5-14.5); WBC 6.7 thou/uL (4.0-11.0)
[2020-04-30 06:14] LABS: CALCIUM 8.1 mg/dL (8.5-10.1); CREATININE 1.4 mg/dL (0.7-1.3); MAGNESIUM 1.9 mg/dL (1.8-2.4); POTASSIUM 4.4 mmol/L (3.5-5.1)
[2020-04-30 08:28] VITALS: BP 108/53
[2020-04-30 16:41] VITALS: BP 132/61
[2020-04-30 19:32] VITALS: BP 151/74
[2020-05-01 06:16] VITALS: BP 129/61
[2020-05-01 06:30] LABS: HEMATOCRIT 21.2 % (42.0-52.0); HEMOGLOBIN 7.4 gm/dL (14.0-18.0); MCH 29.1 pg (26.0-34.0); MCHC 35.1 g/dL (28.0-37.0); MCV 82.8 fL (80.0-100.0); RBC 2.56 mil/uL (4.50-6.00); RDW 15.5 % (10.5-14.5); WBC 7.7 thou/uL (4.0-11.0)
[2020-05-01 06:43] LABS: CREATININE 1.6 mg/dL (0.7-1.3); MAGNESIUM 1.8 mg/dL (1.8-2.4); POTASSIUM 4.8 mmol/L (3.5-5.1)
[2020-05-01 19:58] VITALS: BP 147/69
[2020-05-02 04:43] VITALS: BP 136/66
[2020-05-02 09:00] VITALS: BP 133/64
--- NOTE | 2020-05-02 11:29 | HC ---
[facility] [place] [address] CONSULTATION Name: ROEL GIPSON Room #: 364-P ADM IN M.R.#: [id number] Admission: 04/27/20 Attend Phys: Warren Romero MD Discharge: Date of : 58 Report #: [id number] THIS REPORT FOR: cc: JUS - Family physician unknown JUS - Family physician unknown Theron Mcdonald MD ~ CC: JUS unknown Warren Romero DATE OF SERVICE: 04/28/2020 WOUND CARE CONSULTATION PERSONAL PHYSICIAN: Not on staff. CHIEF COMPLAINT: Infected right hip wound. HISTORY OF PRESENT ILLNESS: This is a 59-year-old male who I admitted from the wound clinic yesterday for continued IV antibiotics and wound management of a chronically infected right hip wound. The patient had a total left hip arthroplasty after hip fracture that failed. The patient then had the arthroplasty removed and antibiotic spacers were placed. This was then closed primarily; however, unfortunately this has been persistently draining. When seen in the Wound Center yesterday, the patient had copious amount of drainage coming from the left hip wound. Hip was then opened up along the middle aspect of the incision with return of a significant amount of brownish drainage without significant odor. Wound culture was obtained at that time, is currently pending. I spoke with Dr. Negro who had done the patient's surgery. So at this time, I think the patient needed to be admitted for continued IV antibiotics and more aggressive wound management that can be done at the current facility where he is located. After opening the wound, we talked about placing the wound VAC over the area to control the drainage to try to assist in closure of the wound if at all possible. His feelings are that this does not work, the patient is looking at a possible Girdlestone procedure to remove the most proximal part of the femur. The patient also was noted in the clinic to have unstageable decubitus ulcer to his left heel. The patient denies any other associated wounds at this time. PAST MEDICAL HISTORY: Significant for diabetes type 2, cirrhosis of the liver. The patient is currently awaiting liver transplant, hypertension, recent hip fracture with total hip arthroplasty and subsequent infection. CURRENT MEDICATIONS: Multiple, I reviewed the patient's medication list. DRUG ALLERGIES: None. [address] [address] CONSULTATION Name: ROEL GIPSON Room #: 364-P [facility] IN M.R.#: [id number] Admission: 04/27/20 Attend Phys: Warren Romero MD Discharge: Date of : 58 Report #: [id number] SOCIAL HISTORY: The patient denies tobacco use, has a history of alcohol use in the past, but no longer drinks. REVIEW OF SYSTEMS: CONSTITUTIONAL: The patient denies fevers, but has intermittent chills over the past 2 days. NEUROLOGIC: The patient complains of generalized weakness, but no isolated weakness in arms or legs. EYES: No complaints. ENT: No complaints. CARDIAC: The patient complains of chronic lower extremity edema, which is improved. No chest pain or palpitation. RESPIRATORY: The patient denies shortness of breath, cough or wheezes. GASTROINTESTINAL: The patient denies nausea, vomiting or abdominal pain. GENITOURINARY: The patient denies urgency or frequency. MUSCULOSKELETAL: The patient complains of severe pain in his left hip where the wound is located. SKIN: There is a large surgical wound, which is now opened left hip as well as unstageable decubitus ulcer in his left heel. PHYSICAL EXAMINATION: VITAL SIGNS: Temperature 37.1, pulse 84, respirations 16, BP 144/68. GENERAL: Alert and oriented x 3, pleasant white male who is in [id number] distress secondary to pain. HEENT: Normocephalic, atraumatic. Mucous membranes are moist. Pupils are round. Sclerae white. NECK: Supple, nontender. LUNGS: Clear. HEART: Regular. ABDOMEN: Soft, nontender. EXTREMITIES: The patient moves all extremities without difficulty. Evaluation of left lower extremity reveals an open surgical wound in the left hip region, which is draining brownish fluid without significant odor. Periwound is otherwise intact. Both proximal and distal to this surgical wound are intact staple incisions. Distal pulses are 1+. Evaluation of left heel reveals an unstageable decubitus ulcer with dry, intact eschar. There is 1+ edema bilateral lower extremities. NEUROLOGIC: Cranial nerves 2-12 are grossly intact. Motor and sensory grossly intact. LABORATORY DATA: White count 5.3, hemoglobin 7.9, BUN 36, creatinine 1.2, previous hemoglobin A1c was 7.7. C-reactive protein in the past was 123.8, albumin is 2.4. IMPRESSION: 1. Infected left hip wound, status post failed left total hip arthroplasty and [facility] [address] [place] [address] CONSULTATION Name: GIPSONROEL Room #: 364-[facility] IN M.R.#: [id number] Admission: 04/27/20 Attend Phys: Warren Romero MD Discharge: Date of : 58 Report #: [id number] subsequent antibiotic bead spacer, now with persistent infection. 2. Cirrhosis of the liver. 3. Diabetes mellitus. 4. Protein-calorie malnutrition -- severe with albumin of 2.4. 5. Unstageable decubitus ulcer, left heel. 6. Generalized debility. PLAN: Once again, the wound on the left hip was opened at the bedside without difficulty at yesterday's wound care appointment. The patient now has a wound VAC placed in the wound itself. This will be started at 125 mm of continuous pressure, change 3 times weekly and p.r.n. We will put Betadine on the left heel ulcer daily and have his heels elevated at all times off the bed. Continue IV antibiotics per Dr. Kan Berrios. We will maximize the patient's protein supplementation for healing. We will utilize physical and occupational therapy as the patient is able to. However, at this time, Orthopedics has recommended the patient be nonweightbearing on the left hip. We will continue all other current medications. I appreciate ability to consult. We will continue to follow the patient. <ELECTRONICALLY SIGNED> By: Theron Mcdonald MD 05/02/20 1129 1330 1819 Theron Mcdonald MD /nt
[2020-05-02 19:11] VITALS: BP 142/68
[2020-05-03 04:57] VITALS: BP 132/66
[2020-05-03 08:35] VITALS: BP 115/64
[2020-05-03 10:58] LABS: HEMATOCRIT 21.2 % (42.0-52.0); HEMOGLOBIN 7.2 gm/dL (14.0-18.0); MCH 28.1 pg (26.0-34.0); MCHC 34.1 g/dL (28.0-37.0); MCV 82.4 fL (80.0-100.0); RBC 2.57 mil/uL (4.50-6.00); RDW 15.2 % (10.5-14.5); WBC 6.8 thou/uL (4.0-11.0)
[2020-05-03 11:16] LABS: ALBUMIN 2.1 g/dL (3.4-5.0); CALCIUM 7.8 mg/dL (8.5-10.1); CREATININE 1.5 mg/dL (0.7-1.3); INR 1.2; MAGNESIUM 1.6 mg/dL (1.8-2.4); POTASSIUM 4.5 mmol/L (3.5-5.1); TOTAL BILIRUBIN 0.7 mg/dL (0.2-1.0); TOTAL PROTEIN 8.3 g/dL (6.4-8.2)
[2020-05-03 16:10] VITALS: BP 114/63
[2020-05-03 19:16] VITALS: BP 120/62
[2020-05-04 04:06] VITALS: BP 128/65
[2020-05-04 06:22] LABS: HEMATOCRIT 23.1 % (42.0-52.0); HEMOGLOBIN 7.8 gm/dL (14.0-18.0); MCH 28.3 pg (26.0-34.0); MCHC 33.9 g/dL (28.0-37.0); MCV 83.2 fL (80.0-100.0); RBC 2.78 mil/uL (4.50-6.00); RDW 15.5 % (10.5-14.5)
[2020-05-04 06:48] LABS: CALCIUM 8.7 mg/dL (8.5-10.1); CREATININE 1.6 mg/dL (0.7-1.3); MAGNESIUM 2.1 mg/dL (1.8-2.4); POTASSIUM 4.2 mmol/L (3.5-5.1)
[2020-05-04 16:21] VITALS: BP 130/66
[2020-05-04 19:11] VITALS: BP 113/63
[2020-05-05 05:54] LABS: HEMATOCRIT 20.7 % (42.0-52.0); HEMOGLOBIN 7.2 gm/dL (14.0-18.0); MCH 28.6 pg (26.0-34.0); MCHC 34.7 g/dL (28.0-37.0); MCV 82.3 fL (80.0-100.0); RBC 2.51 mil/uL (4.50-6.00); RDW 15.3 % (10.5-14.5)
[2020-05-05 06:07] LABS: CALCIUM 7.9 mg/dL (8.5-10.1); CREATININE 1.5 mg/dL (0.7-1.3); POTASSIUM 4.5 mmol/L (3.5-5.1); TOTAL BILIRUBIN 0.7 mg/dL (0.2-1.0); TOTAL PROTEIN 8.2 g/dL (6.4-8.2)
[2020-05-05 08:26] VITALS: BP 132/63
[2020-05-05 15:55] VITALS: BP 112/64
[2020-05-05 18:51] LABS: URINE BILIRUBIN NEGATIVE (Negative); URINE BLOOD NEGATIVE (Negative); URINE CLARITY CLEAR; URINE COLOR YELLOW; URINE GLUCOSE-RANDOM* NEGATIVE (Negative); URINE KETONES NEGATIVE (Negative); URINE LEUKOCYTES NEGATIVE (Negative); URINE NITRITE NEGATIVE (Negative); URINE PROTEIN (DIPSTICK) NEGATIVE (Negative); URINE SPECIFIC GRAVITY <= 1.005 (1.005-1.035); URINE UROBILINOGEN 0.2 E.U./dl (0.2-1.0)
[2020-05-05 19:03] LABS: URINE CREATININE-RANDOM* 34.8 mg/dL; URINE PROTEIN-RANDOM* <6 mg/dL (<11.9); URINE SODIUM-RANDOM* 49 mmol/L
[2020-05-06 03:57] VITALS: BP 117/61
[2020-05-06 06:54] LABS: ALBUMIN 2.7 g/dL (3.4-5.0); CALCIUM 8.2 mg/dL (8.5-10.1); CREATININE 1.5 mg/dL (0.7-1.3); POTASSIUM 4.4 mmol/L (3.5-5.1)
[2020-05-06 08:37] VITALS: BP 138/58
[2020-05-06] MEDS ORDERED: LANTUS SUBQ (13:21)
[2020-05-06] MEDS ORDERED: oxycodone (13:41)
== END 2020-05-06 18:13 | DRG 177 ==
LOC: ER 12:03 → EROBS 15:58 → 4W 15:58 → 3W 04-28 21:31
PROVIDERS: Emergency Medicine; Hospitalist; Nurse Practitioner; ADMIT Internal Medicine; ATTEND Internal Medicine
PROC: 05HY33Z Insertion of Infusion Device into Upper Vein, Percutaneous Approach (ICD-10-PCS; principal; 2020-05-06)
DX: U07.1 COVID-19 (principal); E43 Unspecified severe protein-calorie malnutrition; M86.8X6 Other osteomyelitis, lower leg; E87.1 Hypo-osmolality and hyponatremia; T84.52XA Infection and inflammatory reaction due to internal left hip prosthesis, initial encounter; M00.052 Staphylococcal arthritis, left hip; R18.8 Other ascites; K74.60 Unspecified cirrhosis of liver; L89.620 Pressure ulcer of left heel, unstageable; Z89.422 Acquired absence of other left toe(s); Z96.642 Presence of left artificial hip joint; Z86.19 Personal history of other infectious and parasitic diseases; E11.22 Type 2 diabetes mellitus with diabetic chronic kidney disease; E78.5 Hyperlipidemia, unspecified; D50.9 Iron deficiency anemia, unspecified; Y83.8 Other surgical procedures as the cause of abnormal reaction of the patient, or of later complication, without mention of misadventure at the time of the procedure; E87.8 Other disorders of electrolyte and fluid balance, not elsewhere classified; D69.6 Thrombocytopenia, unspecified; B95.62 Methicillin resistant Staphylococcus aureus infection as the cause of diseases classified elsewhere; I12.9 Hypertensive chronic kidney disease with stage 1 through stage 4 chronic kidney disease, or unspecified chronic kidney disease; B96.5 Pseudomonas (aeruginosa) (mallei) (pseudomallei) as the cause of diseases classified elsewhere; L30.8 Other specified dermatitis; D63.8 Anemia in other chronic diseases classified elsewhere; E11.69 Type 2 diabetes mellitus with other specified complication; K72.90 Hepatic failure, unspecified without coma; B19.20 Unspecified viral hepatitis C without hepatic coma; R74.0 Nonspecific elevation of levels of transaminase and lactic acid dehydrogenase [LDH]; Y92.89 Other specified places as the place of occurrence of the external cause; Z79.899 Other long term (current) drug therapy; Z68.23 Body mass index [BMI] 23.0-23.9, adult
CPT/HCPCS: 10040; 10080

== ENCOUNTER → 2020-04-27 | Outpatient (CLI) | payer OTHER ==
[~2020-04-27] MED LIST changes: +ACIDOPHILUS LA1 EAC1 PO; +CIPRO500 M1 PO; +FERRETTS325 MG PO; +GERI-HYDROLAC222 M1 TOP; +LACTULOSE10 GM/152 PO; +LANTUSSOLASTAR SUBQ; +LASIX 40 MG TAB40 MG PO; +NORCO 5-325 TA1 EAC1 PO; +ONDANSETRON ODT4 MG PO; +PERCOCET 5-3251 EACH PO; +PROPRANOLOL 20M20 M1 PO; +SPIRONOLACTONE100 M3 PO; +VITAMIN C500 M2 PO
== END ==
LOC: HYPER 09:42
PROVIDERS: ATTEND Emergency Medicine
DX: T81.31XA Disruption of external operation (surgical) wound, not elsewhere classified, initial encounter (principal); I87.332 Chronic venous hypertension (idiopathic) with ulcer and inflammation of left lower extremity; E11.622 Type 2 diabetes mellitus with other skin ulcer; L89.610 Pressure ulcer of right heel, unstageable; L97.822 Non-pressure chronic ulcer of other part of left lower leg with fat layer exposed; E11.621 Type 2 diabetes mellitus with foot ulcer; L97.411 Non-pressure chronic ulcer of right heel and midfoot limited to breakdown of skin; E11.65 Type 2 diabetes mellitus with hyperglycemia; E11.43 Type 2 diabetes mellitus with diabetic autonomic (poly)neuropathy; R60.0 Localized edema; E11.69 Type 2 diabetes mellitus with other specified complication; M86.9 Osteomyelitis, unspecified; K74.60 Unspecified cirrhosis of liver; Z79.4 Long term (current) use of insulin; Z79.82 Long term (current) use of aspirin; Y83.8 Other surgical procedures as the cause of abnormal reaction of the patient, or of later complication, without mention of misadventure at the time of the procedure; Y92.238 Other place in hospital as the place of occurrence of the external cause

== ENCOUNTER 2020-05-23 11:56 | Inpatient (IN) | payer OTHER ==
[~2020-05-23] VITALS: Ht 177.8 cm; Wt 75.0 kg
[~2020-05-23 11:56] MED LIST changes: +oxycodone
[2020-05-23 12:47] LABS: MCH 28.4 pg (26.0-34.0); MCHC 34.7 g/dL (28.0-37.0); MCV 81.8 fL (80.0-100.0); RBC 2.17 mil/uL (4.50-6.00); WBC 8.9 thou/uL (4.0-11.0)
[2020-05-23 12:50] LABS: HEMOGLOBIN 6.2 gm/dL (14.0-18.0)
[2020-05-23 12:51] LABS: HEMATOCRIT 17.7 % (42.0-52.0)
[2020-05-23 13:00] LABS: ANION GAP 8 mmol/L (7-16); BUN 15 mg/dL (7-18); CALCIUM 8.2 mg/dL (8.5-10.1); CHLORIDE 97 mmol/L (98-107); CO2 24 mmol/L (21-32); CREATININE 1.1 mg/dL (0.7-1.3); GLUCOSE 88 mg/dL (74-106); POTASSIUM 4.2 mmol/L (3.5-5.1); SODIUM 129 mmol/L (136-145)
[2020-05-23 13:11] LABS: ALBUMIN 1.6 g/dL (3.4-5.0); LIPASE 84 U/L (73-393); SGOT 26 U/L (15-37); SGPT 26 U/L (30-65); TOTAL BILIRUBIN 0.6 mg/dL (0.2-1.0); TOTAL PROTEIN 7.2 g/dL (6.4-8.2); TROPONIN-I <0.06 ng/mL (<0.06)
[2020-05-23 17:31] VITALS: BP 120/58; BP 141/69
[2020-05-23] MEDS ORDERED: LANTUSSOLASTAR SUBQ (18:01)
[2020-05-23 18:02] LABS: URINE BILIRUBIN NEGATIVE (Negative); URINE BLOOD TRACE (Negative); URINE CLARITY CLEAR; URINE COLOR YELLOW; URINE GLUCOSE-RANDOM* NEGATIVE (Negative); URINE KETONES NEGATIVE (Negative); URINE LEUKOCYTES-REFLEX NEGATIVE (Negative); URINE NITRITE-REFLEX NEGATIVE (Negative); URINE PROTEIN (DIPSTICK) NEGATIVE (Negative); URINE SPECIFIC GRAVITY <= 1.005 (1.005-1.035); URINE UROBILINOGEN 0.2 E.U./dl (0.2-1.0)
[2020-05-23 18:12] VITALS: BP 132/62
[2020-05-23] MEDS ORDERED: NOVOLOG100 UNIT/1 SUBQ (18:14)
[2020-05-23] MEDS ORDERED: CALCIUM500 MG PO (18:15)
[2020-05-23] MEDS ORDERED: THERA-M CAPLET1 EAC1 PO (18:16)
[2020-05-23 18:27] VITALS: BP 132/62
[2020-05-23 19:49] LABS: % SATURATION 17 % (20-39); IRON 22 ug/dL (65-175); TIBC 127 ug/dL (250-450)
[2020-05-23 20:27] LABS: FOLIC ACID 11.5 ng/mL (8.6-58.9)
[2020-05-24 05:01] VITALS: BP 95/56
[2020-05-24 06:55] LABS: ABSOLUTE NEUTROPHILS 7.1 thou/uL (1.4-8.2); BASOPHILS 0.4 % (0.0-2.0); EOSINOPHILS 3.5 % (0.0-3.0); HEMATOCRIT 20.7 % (42.0-52.0); HEMOGLOBIN 7.2 gm/dL (14.0-18.0); MCH 28.4 pg (26.0-34.0); MCHC 34.8 g/dL (28.0-37.0); MCV 81.6 fL (80.0-100.0); MONOCYTES 10.9 % (1.0-8.0); PLATELET COUNT 196 thou/uL (150-400); POLYS 75.2 % (36.0-66.0); RBC 2.54 mil/uL (4.50-6.00); RDW 15.6 % (10.5-14.5); WBC 9.4 thou/uL (4.0-11.0)
[2020-05-24 06:58] LABS: CALCIUM 7.7 mg/dL (8.5-10.1); MAGNESIUM 1.9 mg/dL (1.8-2.4); POTASSIUM 4.3 mmol/L (3.5-5.1)
--- NOTE | 2020-05-24 07:51 | NUR ---
PT ADMITTED FROM ER TO 355 AROUND 2030 PM 05/23. ALERT AND ORIENTED X4 . PT FROM [facility] . HERE FOR ANEMIA R/O COVID. DR SNOW SEES PT REGARDING LEFT HIP. HARDWARE HAS BEEN REMOVED. PT HAS DECUBS ON BUTTOCKS AND LEFT HEEL ALSO. CONSULTS REQUESTED FOR ID, GI, AND ORTHO. PICTURES TAKEN OF LEFT HIP, R AND L BUTTOCK SUPERFICIAL SKIN BREAKDOWN AND LEFT HEEL WOUND. PICC LINE XRAYED IN ER. PT RECEIVED 1 UNIT OF BLOOD IN THE ER. NO BLEEDING NOTED. IV ABX STARTED ORDERED. PT INSTRUCTED ON FALL PRECAUTIONS. BED DOWN CALL LIGHT IN REACH.. BED ALARM ON.SR ON HEART MONITOR.
[2020-05-24 08:25] VITALS: BP 118/73
--- NOTE | 2020-05-24 09:25 | NUR ---
Assess due to RD consult received for pt with wounds. Admit with anemia, requiring transfusion. Has extensive hx of cirrhosis, hepatic encephalopathy, esophageal varices, chronic anemia, DM. Recent COVID infection and was hospitalized recently 04/2020. Has osteomyelitis left hip-wound care to see. Pt eats well, and will drink glucerna shakes when offered. Has large variable wt hx with ascites and high wts over 200 lb to lowest wt 150 lb. Current wt is 165 lb. Order supplements and would consider pt low nutrition risk with appropriate nutrition interventions in place
--- NOTE | 2020-05-24 15:17 | NUR ---
ASSUMED PATIENT CARE THIS AM AT APPROXIMATELY 0700. PATIENT AWAKE ORIENTED, NO S/S OF RESP DISTRESS. O2 SAT STABLE ON ROOM AIR. PATIENT COMPLAINING OF PAIN TO LEFT HIP. CONTROLLED BY PO NORCO Q4H. PATIENT IS SEEN BY [facility] GRADER AND DOC, SEE NEW DRESSING CHANGE ORDERS. DRESSING CHANGES THIS SHIFT COMPLETED BY WOUND CARE RNS. PLAN TO HAVE SURGERY TOMORROW WITH ORTHO, CALLED ANA IRWIN NP TO VERIFY IF OK WITH PATIENT BEING COVID POSITIVE, CAME COVID POSITIVE FORM FACILITY SINCE APRIL, ALTHOUGH STILL WAITING ON FINAL COVID TEST RESULTS HERE INPATIENT. ORDERED HEEL PROTECTORS FOR PATIENT THIS SHIFT. EDUCATED ON USE. EDUCATED ON IMPORTANCE OF TURNS, PATIENT HAS REFUSED TO TURN FOR THIS NURSE THIS SHIFT, STATES HE IS COMFORTABLE AND DOES NOT WANT TO MOVE. IV NURSE CALLED TO MAKE AWARE PATIENT NEEDS DRESSING CHANGE TO LEFT PICC LINE.
--- NOTE | 2020-05-24 15:48 | NUR ---
INITIAL ASSESSMENT: Received consult. SOM reviewed chart and spoke with nursing and attending physician. Pt was admitted from [facility] due to anemia. Pt placed in Enhanced Isolation to r/o COVID-19. Pt has tested positive in the past. Pt was discharged from [facility] on 05/06 to [facility]. Pt was to have surgery per ortho on 05/11. Pt did not have scheduled surgery. SOM discussed with [place] post-acute liaison. Pt is still there using his skilled benefit. Pt's insurance changed to [employer] from [employer]. Pt with Acetabular osteomyelitis. Ortho/ID/wound care consulted. Pt is on IV abx. Awaiting clearance for surgery. SOM spoke with pt via phone. Introduced role of SOM. Pt is alert/orientated x 4. Pt confirms his plan is to return to [place] when medically stable. SOM updated [place] post-acute liaison. SOM is following to assist as needed with discharge planning.
--- NOTE | 2020-05-24 16:57 | NUR ---
PATIENT COVID TEST POSITIVE THIS EVENING. PAGED DR. SANFORD TO MAKE AWARE, ORTHO STATES THEY ARE STILL OK WITH TAKING PATIENT TO SURGERY TOMORROW, WILL HAVE TO CHECK WITH ANESTHESIA IN AM, FOR NOW PLAN IS STILL FOR SURGERY TOMORROW.
[2020-05-24 19:44] VITALS: BP 123/67
[2020-05-25] VITALS (10 sets, daily range): BP systolic 95–148; BP diastolic 55–83
[2020-05-25 05:44] LABS: INR 1.2; PROTIME 12.7 Seconds (9.3-11.4)
[2020-05-25 09:28] LABS: CALCIUM 7.7 mg/dL (8.5-10.1); HEMATOCRIT 21.5 % (42.0-52.0); HEMOGLOBIN 7.4 gm/dL (14.0-18.0); MCHC 34.2 g/dL (28.0-37.0); MCV 82.1 fL (80.0-100.0); POTASSIUM 4.4 mmol/L (3.5-5.1); RBC 2.62 mil/uL (4.50-6.00); WBC 7.4 thou/uL (4.0-11.0)
[2020-05-25 13:19] LABS: HEMOGLOBIN 7.7 gm/dL (14.0-18.0); MCH 28.3 pg (26.0-34.0); MCHC 34.8 g/dL (28.0-37.0); MCV 81.3 fL (80.0-100.0); RBC 2.71 mil/uL (4.50-6.00); RDW 15.8 % (10.5-14.5); WBC 6.8 thou/uL (4.0-11.0)
[2020-05-25 13:40] LABS: CALCIUM 7.2 mg/dL (8.5-10.1); CREATININE 0.8 mg/dL (0.7-1.3); POTASSIUM 4.2 mmol/L (3.5-5.1)
--- NOTE | 2020-05-25 14:24 | NUR ---
SOM reviewed chart and spoke with nursing. Pt is in Enhanced Isolation due to COVID-19. Pt to have surgery today per ortho. Pt is afebrile and not requiring O2. IV abx is on hold until after surgery and cultures are available. facilities planner to fax clinical info to [facility] for review. SOM updated [place] post-acute liaison. Plan is for pt to discharge back to [facility] when medically stable. Will need therapy evals ordered after surgery and insurance authorization for skilled level of care at the facility. SOM is following to assist as needed with discharge planning.
--- NOTE | 2020-05-25 19:16 | NUR ---
ASSUMED CARE APPROX 0700. PT ALERT AND ORIENTED X4. PT C/O 9/10 PAIN ON PAIN SCALE. PT WENT FOR DEBRIDEMENT AND APPLIANCE REMOVAL OF LT HIP. PT TOLERATED WELL. WOUND VAC AND HEMOVAC IN PLACE. ICE PACKS APPLIED TO AREA. PT RESUMED DIET ON CLEAR LIQUIDS AND TOLERATED WELL. ASSESSMENT CHARTED AND VSS. PT ON ROOM AIR W/ NO SIGNS OF DISTRESS NOTED. PT RECEIVED 1 UNIT OF PRBC THIS SHIFT W/ NO COMPLICATIONS. NO ADDITIONAL PAIN MEDICATIONS WERE ORDERED FOR PT. SPOKE TO JOI. ORDERS GIVEN FOR MS CONTIN 15MG PO 1BID. PT SLOWLY PROGRESSING TOWARDS PLAN OF CARE GOALS. WILL CONTINUE TO MONITOR.
[2020-05-26] VITALS (9 sets, daily range): BP systolic 87–108; BP diastolic 50–63
--- NOTE | 2020-05-26 09:13 | NUR ---
Nutrition: Pt recently assessed by RD on 05/24; see Patient Care Note. Received repeat consult today for wound/max nutrition as able. Pt was started on Glucerna BID on 05/24 and had 100% of first supplement. Typically is a great eater - eating 100% of all 3 meals on 05/24. Had to be NPO for 2 meals on 05/25, then diet was downgraded to clear liquids briefly. As of this morning, back on 1800 carb controlled diet. Glucerna supplements will thus be able to resume right away at lunch. These add 20g protein to daily regimen, plus protein from any milk/meat entrees consumed. He is s/p removal of L hip antibiotic spacer w/ I&D of L hip for infection on 05/25. BGs well controlled, 93-122 mg/dl over the last 24 hrs. Will continue to follow for sufficient PO/supplement consumption. Keep as low nutrition risk w/ interventions in place.
--- NOTE | 2020-05-26 09:59 | HC ---
[facility] [place] [address] CONSULTATION Name: ROEL GIPSON Room #: [facility] ADM IN M.R.#: [id number] Admission: 05/23/20 Attend Phys: Tessy Lambert MD Discharge: Date of : 58 Report #: [id number] THIS REPORT FOR: cc: Javi Urias,Theron Nguyễn MD ~ CC: Tessy Urias DATE OF SERVICE: 05/24/2020 WOUND CARE CONSULTATION PERSONAL PHYSICIAN: Javi Urias DO. CHIEF COMPLAINT: Left hip wound and left heel wound. HISTORY OF PRESENT ILLNESS: This is a 59-year-old white male with a past medical history of cirrhosis of the liver secondary to hepatitis C, who we have been following recently for a chronically infected left total hip arthroplasty. The patient actually has been scheduled for a Girdlestone procedure. This was supposed to have occurred last week; however, it is yet to be done. The patient is now sent to the hospital for repeat evaluation from Orthopedics and most likely procedure of the Girdlestone resection. The patient has also had a history of a chronic left heel ulcer and decubitus ulcers on his gluteal region. The patient does complain of pain in his left hip as well as in the gluteal ulcers. The patient denies any other recent new ulcerations. At the patient's last hospital visit, the patient was COVID-19 positive. The patient's initial COVID-19 testing here has been negative with the second one pending. PAST MEDICAL HISTORY: Significant for hepatitis C, end-stage liver disease, hypertension, ascites, anemia, COVID-19 positive, recurrent infection of the left hip, total hip arthroplasty. CURRENT MEDICATIONS: Multiple, I reviewed the patient's medication list. DRUG ALLERGIES: None. SOCIAL HISTORY: The patient has a history of previous alcohol use, but denies history of tobacco use. The patient is currently a resident in a long-term care facility. FAMILY HISTORY: Not pertinent to current medical condition. REVIEW OF SYSTEMS: CONSTITUTIONAL: The patient denies fevers or chills. [facility] [address] [place] [address] CONSULTATION Name: ROEL GIPSON Room #: 355-P [facility] IN M.R.#: [id number] Admission: 05/23/20 Attend Phys: Tessy Lambert MD Discharge: Date of : 58 Report #: [id number] NEUROLOGIC: The patient complains of overall generalized weakness, but no isolated weakness in arms or legs. EYES: No complaints. ENT: No complaints. CARDIAC: The patient denies chest pain, palpitations or peripheral edema. RESPIRATORY: The patient denies shortness of breath, cough or wheezes. GASTROINTESTINAL: The patient denies nausea, vomiting or abdominal pain. GENITOURINARY: The patient denies urgency or frequency. MUSCULOSKELETAL: The patient has chronic pain in his left hip. SKIN: There is surgical wound to the left hip full thickness as well as bilateral gluteal stage III decubitus ulcers and unstageable left heel ulcer. PHYSICAL EXAMINATION: VITAL SIGNS: Temperature 36.5, pulse 68, respirations 18, BP 118/73. GENERAL: This is an alert and oriented x 3, chronically ill-appearing white male who is in mild distress secondary to pain. HEENT: Normocephalic, atraumatic. Mucous membranes are somewhat dry. Pupils are round. Sclerae white. NECK: Supple, nontender. LUNGS: Clear. HEART: Regular. ABDOMEN: Soft, nontender. EXTREMITIES: The patient moves all extremities without difficulty. Evaluation of left hip reveals a surgical wound, full thickness with exposed bone. There is moderate amount of serosanguineous drainage noted without significant odor. Periwound is otherwise intact. Wound bed itself is probably 90% granulation tissue, 10% slough. Evaluation of left heel reveals an unstageable decubitus ulcer with a loosely adherent black eschar. No other associated ulcerations are noted on the left foot or toes. Right heel, foot and toes are all intact. Evaluation of gluteal region reveals bilateral stage III decubitus ulcers, which are a mix of approximately 50% slough, 50% granulation tissue. There is no significant depth, undermining or tunneling. Periwound is mildly macerated but otherwise intact. NEUROLOGIC: Cranial nerves 2-12 grossly intact. Motor and sensory grossly intact. LABORATORY DATA: White count 9.4 and hemoglobin 7.2. BUN 15, creatinine 1.0, albumin is 1.6. IMPRESSION: 1. Chronically infected left hip wound, status post left total hip arthroplasty. 2. Unstageable decubitus ulcer, left heel, overall improving. 3. Bilateral superior gluteal stage III decubitus ulcers present on admission. 4. History of COVID-19 positive. 5. Severe protein-calorie malnutrition with albumin 1.6. [facility] [address] [place] [address] CONSULTATION Name: GIPSON,ROEL Room #: 355-P ADM IN M.R.#: [id number] Admission: 05/23/20 Attend Phys: Tessy Lambert MD Discharge: Date of : 58 Report #: [id number] 6. Severe debility. 7. End-stage liver disease secondary to hepatitis C. PLAN: At this time, we will pack the surgical wound with Dakin's moist gauze, cover with ABD and change daily and p.r.n. We will place Betadine to the left heel with heel protection on at all times. We will put the patient on low air loss mattress, having turned every 2 hours. We will use barrier cream and sacral foam to the ulcers in the gluteal region, change daily. We will make sure we maximize the patient's oral protein supplementation for healing. Orthopedics has been consulted for further evaluation and possible Girdlestone procedure. We will continue to follow the patient. <ELECTRONICALLY SIGNED> By: Theron Mcdonald MD 05/26/20 [id number] Theron Mcdonald MD /nt
--- NOTE | 2020-05-26 13:22 | NUR ---
SOM reviewed chart and spoke with nursing and attending physician. Pt remains in Enhanced Isolation due to COVID-19. Pt is POD#1 removal left hip abx spacer with I&D left hip. Pt is afebrile and on IV abx. Wound vac in place. PT/OT ordered to evaluate pt. Will fax clinical updates to [facility] when therapy evals are available. [facility] will need to get insurance authorization for pt to return skilled. SOM updated [facility] post-acute liaison. SOM is following to assist as needed with discharge planning.
--- NOTE | 2020-05-26 16:41 | NUR ---
ASSUMED CARE APPROX 0700. PT ALERT AND ORIENTED X 4. ASSESSMENT CHARTED. BP'S HAVE BEEN LOW TODAY. PT'S BP THIS AM GOT DOWN TO 87/50'S. DR. SANFORD NOTIFIED. ORDER FOR 500ML BOLUS. BP'S HAVE BEEN STABLE AFTER INFUSION. PROPRANOLOL HAS BEEN HELD PER DR. SANFORD. ORDER TO D/C HEMOVAC TODAY. DR. WARD CONTACTED FOR CLARIFICATION. EMPTIED 350ML THIS AM FROM HEMOVAC. ORDERS GIVEN TO MONITOR DRAIN AND REEVALUATE TOMORROW. ORDER UPDATED IN CHART. PT ON ROOM AIR W/ NO SIGNS OF DISTRESS NOTED. SR ON TELE MONITOR. PT/OT WORKED WITH PT TODAY. PT WAS UNABLE TO TOLERATE GETTING UP TO CHAIR THIS SHIFT. PT SLOWLY PROGRESSING TOWARDS PLAN OF CARE GOALS. WILL CONTINUE TO MONITOR.
[2020-05-27 04:49] VITALS: BP 102/64
[2020-05-27 07:58] VITALS: BP 108/63
--- NOTE | 2020-05-27 14:34 | NUR ---
SOM reviewed chart and spoke with nursing and attending physician. Pt is s/p debridement. Pt is in Enhanced Isolation due to COVID-19. Pt is afebrile and not requiring O2. Pt remains on IV abx. Pt is progressing towards goals for discharge. Will need insurance authorization for pt to return skilled. SOM faxed clinical/therapy updates to [facility] post acute liaison for review. Pt will return to [facility] when medically stable. No weekend discharge anticipated. SOM is following to assist as needed with discharge planning.
[2020-05-27 15:10] VITALS: BP 104/61
--- NOTE | 2020-05-27 18:17 | NUR ---
ASSUMED CARE OF PT AT 0700. PT AOX4 IN NO ACUTE DISTRESS. PAIN WELL CONTROLLED WITH CURRENT MED REGIMEN. APPROX 100CC IN HEMOVAC DRAIN. NOTIFIED ORTHO - INSTRUCTED TO PULL. DRESSED. USING URINAL. VOICING NO CONCERNS AT THIS TIME. IV ABX INFUSING PER ORDER. WCM.
[2020-05-27 19:49] VITALS: BP 138/73
--- NOTE | 2020-05-28 04:36 | NUR ---
RESTING QUIETLY TONIGHT. TOOK HIS PAIN MEDICATION BEFORE MIDNIGHT. HE IS AWARE OF THE ULTRASOUND FOR THIS MORNING, AND HAS BEEN NPO. CONTINUES ON IV FLUIDS. WOUND VAC FUNCTIONING. CAREPLAN REVIEWED.
[2020-05-28 07:14] LABS: MCV 82.5 fL (80.0-100.0); RBC 2.05 mil/uL (4.50-6.00)
[2020-05-28 07:15] LABS: MCH 28.1 pg (26.0-34.0); MCHC 34.1 g/dL (28.0-37.0); RDW 16.3 % (10.5-14.5); WBC 13.7 thou/uL (4.0-11.0)
[2020-05-28 07:24] LABS: HEMATOCRIT 16.9 % (42.0-52.0); HEMOGLOBIN 5.8 gm/dL (14.0-18.0)
[2020-05-28 07:26] VITALS: BP 124/75
[2020-05-28 07:42] LABS: ALBUMIN 1.5 g/dL (3.4-5.0); CALCIUM 7.4 mg/dL (8.5-10.1); CREATININE 1.1 mg/dL (0.7-1.3); DIRECT BILIRUBIN 0.2 mg/dL (<0.1-0.2); POTASSIUM 4.8 mmol/L (3.5-5.1); TOTAL BILIRUBIN 0.5 mg/dL (0.2-1.0); TOTAL PROTEIN 6.9 g/dL (6.4-8.2)
[2020-05-28 11:45] VITALS: BP 129/73; BP 134/80; BP 135/73
[2020-05-28 15:13] VITALS: BP 129/73
--- NOTE | 2020-05-28 18:59 | NUR ---
ASSUMED CARE APPROX 0700. PT ALERT AND ORIENTED X4. ASSESSMENT CHARTED AND VSS. PT SR ON TELE MONITOR. PT HGB 5.[address] MOSS NOTIFIED. ORDER FOR BLOOD TRANSFUSION PLACED. 1 UNIT TRANFUSED W/O COMPLICATION OR REACTION. PER DR. MOSS ORDERS THIS RN CONTACTED DR. PACK W/ GI TO INFORM HIM THAT PT WAS BEING TRANFUSED AGAIN. DR. PACK CAME TO SEE PT. NO NEW ORDERS GIVEN. PT RESTING COMFORTABLY IN BED. PT SLOWLY PROGRESSING TOWARDS PLAN OF CARE GOALS. WILL CONTINUE TO MONITOR.
[2020-05-28 20:43] VITALS: BP 146/80
[2020-05-29 08:01] VITALS: BP 135/78
--- NOTE | 2020-05-29 08:24 | NUR ---
ASSUMED CARE AT 1900, ASSESSMENT COMPLETED. PT REPORTS HIGH PAIN IN LEFT HIP, WHICH HAS 2+ EDEMA IN THE THIGH; PT REPORTS TENDERNESS TO TOUCH IN BLE. GIVEN PAIN MEDS MULTIPLE TIMES OVERNIGHT. PREVENA HAD TWO EPISODES OF OCCLUSION, REINFORCED DRESSING, REPOSITIONED TUBING AND VAC CHAMBER AND HAD NOT FURTHER ISSUES OVERNIGHT. NO OTHER CONCERNS, SHIFT REPORT GIVEN AT 0700.
[2020-05-29 08:51] LABS: HEMATOCRIT 20.8 % (42.0-52.0)
[2020-05-29 15:16] VITALS: BP 129/77
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
[2020-05-29 16:48] VITALS: BP 146/77
[2020-05-29 21:01] VITALS: BP 145/79
[2020-05-30 05:18] VITALS: BP 136/75
[2020-05-30 08:25] VITALS: BP 136/75
--- NOTE | 2020-05-30 08:40 | NUR ---
Pt. didn'd sleep much till later part of the am. Medicated for pain with partial relief. Reposition prn upon his request otherwise he refused.Afebrile. Left hip to wound vac. Foam dressing to sacral area. Used bedpan to have a bm but unsuccessful though he said he had bm yesterday .
[2020-05-30 11:02] VITALS: BP 152/85
--- NOTE | 2020-05-30 13:39 | NUR ---
SOM reviewed chart and spoke with nursing and attending physician. Pt is in Enhanced Isolation due to COVID-19. Pt remains on IV abx and has wound vac in place. Pt is afebrile and not requiring O2. SOM to fax clinical/therapy updates to [facility] for review. Facility will need insurance authorization in order for pt to return using his skilled benefit. SOM spoke with pt via phone to provide update and discuss discharge plan. Pt is agreeable and aware of need for insurance authorization. Pt reports that his insurance changed to [employer] on 05/07/2020. SOM updated [facility] post-acute liaison. SOM is following to assist as needed with discharge planning.
[2020-05-30 15:21] VITALS: BP 140/86
--- NOTE | 2020-05-30 17:07 | NUR ---
PT IS A&OX3, PT'S VS ARE STABLE, PT IS CONTINUING IV ABX AND WOUND CARE , PT'S L HIP WOUND CARE IS WORKING AT -125MMGH, PT'S L HIP PAIN CAN CONTROL BY MEDICATIONS, PT IS CONTINUING ISOLATION FOR POSITIVE COVID. PT DOES NOT HAVE SOB AND FEVER TODAY.
[2020-05-30 20:45] VITALS: BP 126/66
[2020-05-31 04:19] VITALS: BP 145/70
[2020-05-31 05:35] LABS: HEMOGLOBIN 6.7 gm/dL (14.0-18.0)
[2020-05-31 05:38] LABS: MCH 29.3 pg (26.0-34.0); MCHC 34.8 g/dL (28.0-37.0); MCV 84.3 fL (80.0-100.0); RBC 2.29 mil/uL (4.50-6.00); RDW 17.7 % (10.5-14.5); WBC 7.9 thou/uL (4.0-11.0)
[2020-05-31 06:01] LABS: HEMATOCRIT 19.3 % (42.0-52.0)
[2020-05-31 06:07] LABS: ALBUMIN 1.6 g/dL (3.4-5.0); CALCIUM 7.7 mg/dL (8.5-10.1); CREATININE 0.9 mg/dL (0.7-1.3); POTASSIUM 4.4 mmol/L (3.5-5.1); TOTAL BILIRUBIN 0.7 mg/dL (0.2-1.0); TOTAL PROTEIN 7.2 g/dL (6.4-8.2)
[2020-05-31 07:58] VITALS: BP 142/75
--- NOTE | 2020-05-31 08:12 | NUR ---
Slept some during the night. Medicated for pain with some relief. Afebrile. Wound vac cannister getting full, building services supervisor notified and order placed which should be here sometime this am , pt. made aware.Refused to reposition q2 hrs and only request to reposition prn. Critical hct and hgb called to LICENSED PSYCHOLOGIST MANAGER this am and orders received.
--- NOTE | 2020-05-31 09:56 | O ---
[facility] [address] [place] [address] OPERATIVE REPORT Name: ROEL GIPSON Room #: 355 ADM IN M.R.#: [id number] Admission: 05/23/20 Attend Phys: Tessy Lambert MD Discharge: Date of : 58 Report #: [id number] THIS REPORT FOR: cc: Javi Urias,Brendan Beckford MD ~ CC: Tessy Urias DATE OF SERVICE: 05/25/2020 PREOPERATIVE DIAGNOSIS: Infected left hip with retained antibiotic cement spacer. POSTOPERATIVE DIAGNOSIS: Infected left hip with retained antibiotic cement spacer. PROCEDURE: Irrigation and debridement of left hip to bone with removal of antibiotic cement spacer. SURGEON: Brendan Negro MD. AGENT PRODUCER: Merced Marques PA-C. INDICATIONS FOR AGENT PRODUCER: Throughout the case, extensive retraction and manipulation of the hip was required. This was afforded to me by my inside sales assistant. ANESTHESIA: General. SPECIMENS: Cultures were taken and sent x 2. CONDITION UPON LEAVING THE OPERATING ROOM: Stable. ESTIMATED BLOOD LOSS: 200 mL. INDICATIONS FOR PROCEDURE: The patient is a 59-year-old gentleman who has had an antibiotic cement spacer in his left hip for several weeks after being placed secondary to a hip infection after a left hip hemiarthroplasty and femoral neck fracture. He has had continued drainage from his hip with now a chronic wound over that area with purulence. Several medical comorbidities including liver failure, failure to thrive with the feeling that the foreign body in his hip was contributing to his chronic drainage. After discussion with him, he elected for removal of the antibiotic cement spacer and irrigation and debridement of the hip. DESCRIPTION OF PROCEDURE: Risks, benefits, alternatives, complications were [facility] [place] [address] [place] [address] OPERATIVE REPORT Name: ROEL GIPSON Room #: 355-P [facility] IN M.R.#: [id number] Admission: 05/23/20 Attend Phys: Tessy Lambert MD Discharge: Date of : 58 Report #: [id number] discussed in detail with the patient including but not limited to risk of anesthesia, risk of damage to nerves, arteries, blood vessels, risk for infection, continued infection, bleeding, need for reoperation. Informed consent was obtained from the patient. Left hip was appropriately marked. He was already on preoperative antibiotics secondary to chronic infection. He was brought to the operating room and general anesthesia was induced without complication. He was then transferred to the operating room table and placed in the right lateral decubitus position with the left hip uppermost. Left hip and lower extremity were prepped and draped in normal sterile fashion. Timeout was performed after properly identifying the patient and procedure as well as the instrumentation. All in the operating room were in agreement. There is a chronic wound over his lateral hip and this wound was extended proximally and distally with a 10 blade through the skin. Dissection was taken down with Bovie cautery. There was communication all the way to the prosthetic head itself. Hip was internally rotated and the cement spacer had to be removed piecemeal by chipping away the cement with an osteotome. After removal of the cement spacer, the wound was thoroughly irrigated with normal saline. It was felt we would leave him with a Girdlestone secondary to his chronic medical comorbidities and hopes that we could at least get the wound itself to heal. A deep drain was placed and the skin edges were cleaned up with a 10 blade and closed on her quite a bit of tension using 2-0 nylon, a Prevena dressing was applied. The patient tolerated this procedure well and went to recovery room under care of anesthesia postoperatively. <ELECTRONICALLY SIGNED> By: Brendan Negro MD 05/31/20 [id number] Brendan Negro MD /nt
--- NOTE | 2020-05-31 09:57 | NUR ---
WOUND CARE PREVENA VAC IN PLACE L HIP INCISION, CANNISTER FULL, PER ORDERS JAIR SALAZAR TRANSPORTATION DISPATCHER NURSE W/ DR DESAI ADVISED TO SWITCH VAC MACHINE OUT TO ULTA VAC, ASSISTED MANAGEMENT DEVELOPMENT SPECIALISTVERONICA HILL W/ APPLYING ULTA VAC, PREVENA SETTING 125MMHG, GOOD SEAL NOTED, NO LEAKING, DRSG INTACT, BROWNISH RED DRAINAGE NOTED, PREVENA VAC LEFT IN ROOM
[2020-05-31 11:19] VITALS: BP 124/69; BP 137/71
--- NOTE | 2020-05-31 15:30 | NUR ---
ASSUMED PATIENT CARE THIS AM AT APPROXIMATELY 0700. PATIENT IS AWAKE ORIENTED. ASSESSMENTS AND MEDS CHARTED. O2 SAT STABLE ON ROOM AIR. PATIENT HGB 6.7 THIS AM AND 1 UNIT OF BLOOD ORDERED AND GIVEN THIS SHIFT. RECHECKED SCHEDULED FOR TOMORROW AM. WOUND DRESSINGS COMPLETED THIS SHIFT FOR TODAY, PATIENT PAIN MEDS GIVEN Q4H FOR PAIN TO LEG. TOLERATING MEALS. GOOD URINE OUTPUT. BM SENT TO LAB TO CHECK FOR OB STOOL
--- NOTE | 2020-05-31 16:17 | NUR ---
SOM reviewed chart and spoke with nursing and attending physician. Pt is in Enhanced Isolation due to COVID-19. PT is afebrile and not requiring O2. Pt is on IV abx. Pt has wound vac in place. Awaiting cultures. Pt to have blood transfusion today. SW updated [facility] post-acute liaison. Will fax clinical/therapy updates tomorrow. SOM is following to assist as needed with discharge planning.
[2020-05-31 16:27] VITALS: BP 140/68
[2020-05-31 19:51] VITALS: BP 139/68
[2020-06-01 03:53] VITALS: BP 145/75
--- NOTE | 2020-06-01 06:01 | NUR ---
ASSUMED CARE AT 1900. PT DENIES SOB OR NAUSEA. REINFORCED FLUID RESTRICTION WITH PATIENT. NORCO GIVEN TWICE OVERNIGHT FOR HIP PAIN. LEFT PRAFO BOOT ON. PT DECLINED TURNING IN BED BUT WILL PULL HIMSELF UP NEEDED. NO OTHER CONCERNS, WILL CONTINUE TO MONITOR.
[2020-06-01 06:22] LABS: HEMATOCRIT 22.9 % (42.0-52.0); HEMOGLOBIN 7.9 gm/dL (14.0-18.0); MCH 29.1 pg (26.0-34.0); MCHC 34.4 g/dL (28.0-37.0); MCV 84.6 fL (80.0-100.0); RBC 2.7 mil/uL (4.50-6.00); RDW 17.2 % (10.5-14.5); WBC 7.4 thou/uL (4.0-11.0)
[2020-06-01 08:14] VITALS: BP 143/73
--- NOTE | 2020-06-01 14:55 | NUR ---
SOM reviewed chart and spoke with nursing and attending physician. Pt is in Enhanced Isolation due to COVID-19. Pt is afebrile and not requiring O2. Pt is on IV abx and has wound vac in place. Awaiting cultures per ID. SOM faxed clinical upates to [facility] for review and requested authorization process to be started. Will needs ID recommendations for duration of IV abx and if IV abx can be changed from Daptomycin to another abx. SOM paged ID physician through office. Awaiting call back at this time. SOM is following to assist as needed with discharge planning.
--- NOTE | 2020-06-01 18:28 | NUR ---
assumed care of pt at 0700. pt aox4 in no acute distress. breathing comfortably on room air. vitals stable. dressings changed per order. wound vac in place - c/d/i. pain well controlled with current med regimen. various iv abx infusing per order. using urinal. calls out appropriately. pt progressing toward poc goals.
[2020-06-01 20:10] VITALS: BP 132/68
[2020-06-02 03:48] VITALS: BP 131/72
--- NOTE | 2020-06-02 05:30 | NUR ---
ASSUMED CARE AT 1900. PT DENIED SOB OR NAUSEA. REPORTS IMPROVEMENT IN PAIN, HAS NOT NEEDED MUCH PAIN MEDICINE. EDEMA IS DECREASED IN LEFT THIGH AND REDNESS IS REDUCED AROUND THE WOUND VAC. NO OTHER CONCERNS, WILL CONTINUE TO MONITOR.
[2020-06-02 07:57] VITALS: BP 128/74
[2020-06-02 08:51] LABS: HEMATOCRIT 23.8 % (42.0-52.0); HEMOGLOBIN 8.2 gm/dL (14.0-18.0); MCH 29.3 pg (26.0-34.0); MCHC 34.4 g/dL (28.0-37.0); MCV 85.2 fL (80.0-100.0); RBC 2.79 mil/uL (4.50-6.00); RDW 18.2 % (10.5-14.5); WBC 6.8 thou/uL (4.0-11.0)
[2020-06-02 09:07] LABS: CALCIUM 7.9 mg/dL (8.5-10.1); CREATININE 0.9 mg/dL (0.7-1.3); POTASSIUM 4.4 mmol/L (3.5-5.1)
--- NOTE | 2020-06-02 11:49 | NUR ---
Nutrition: Phoned room for follow up this date as pt remains in isolation. Pt is on a 2 g Na diet and has been receiving Glucerna shakes BID. He as of late has started refusing supplements. Refused all yesterday. During phone call, pt reports being tired of supplements and would to discontinue all. Inquired about PO intake - to make sure appetite intact and pt eating sufficient amounts. Pt confirms this. He ate 75% of all meals yesterday and is averaging nearly 70% of meals per the last 17 recorded meals over 05/26 - 06/01. Pt continues w/ wound vac in place to L hip incision (L hip infection, previous I&Ds). Aware of high protein needs. Denied further food/menu modifications. RD encouraged pt to notify nursing if any appetite declines occur, otherwise continue as low nutrition risk.
[2020-06-02] MEDS ORDERED: LANTUS SUBQ (13:34)
[2020-06-02] MEDS ORDERED: PANTOPRAZOLE SO40 M1 PO (13:34)
[2020-06-02] MEDS ORDERED: PERCOCET 5-3251 EACH PO (13:34)
[2020-06-02] MEDS ORDERED: CIPROFLOXA IVPB (13:34)
[2020-06-02] MEDS ORDERED: METRO IV 5500 MG/100 IV (13:34)
[2020-06-02] MEDS ORDERED: ALDACTONE50 MG PO (13:34)
[2020-06-02] MEDS ORDERED: ACETAMINOPHEN325 M1 PO (13:34)
[2020-06-02] MEDS ORDERED: CUBICIN500 MG IVPB (13:34)
--- NOTE | 2020-06-02 15:49 | NUR ---
SW reviewed chart and spoke with nursing and attending physician. Pt is in Enhanced Isolation due to COVID-19. Pt is afebrile and not requiring O2. Pt has wound vac in place and is on IV abx. Awaiting input from ID regarding discharge abx. This info is need for insurance to provide authorization for skilled services. SOM faxed clinical updated to [facility] for review. Updated [facility] post acute liaison. Plan is for pt to return to [facility] when medically stable and insurance auth has been obtained. SOM is following to assist as needed with discharge planning.
--- NOTE | 2020-06-02 16:16 | NUR ---
ASSUMED CARE OF PT AT 0700. PT AOX4 IN NO ACUTE DISTRESS. VITALS STABLE. GOOD URINARY OUTPUT. DRESSING CHANGED PER ORDER. PICC LINE ACTIVASED BY IV TEAM. IV ABX INFUSING PER ORDER. DISCHARGE ORDERS IN PLACE. WAITING FOR PLACEMENT. HGB STABLE. PT PROGRESSING TOWARD POC GOALS.
[2020-06-02 16:31] VITALS: BP 134/78
--- NOTE | 2020-06-02 18:24 | NUR ---
POST CATHFLO TO CARO PORT OF PICC RESULT: EXCELLENT BLOOD RETURN NOTED AND FLUSHES WITHOUT ISSUES.
[2020-06-02 20:23] VITALS: BP 118/73
[2020-06-03 04:45] VITALS: BP 129/73
--- NOTE | 2020-06-03 06:47 | NUR ---
ASSUMED CARE AT 1900, ASSESSMENT COMPLETED. PT REPORTS PAIN UNDER CONTROL OVERNIGHT, NO PAIN MEDS GIVEN. EDEMA DECREASED COMPARED TO PREVIOUS SHIFTS. STARTED ON IV VANC OVERNIGHT, PER DR. ESCOTO. PLAN FOR D/C TO FACILITY IN 1-2 DAYS. NO OTHER CONCERNS, WILL CONTINUE TO MONITOR.
[2020-06-03 07:58] VITALS: BP 139/82
--- NOTE | 2020-06-03 11:36 | NUR ---
DISCHARGE NOTE: SW reviewed chart and spoke with nursing and attending physician. Pt is in Enhanced Isolation due to COVID-19. Pt is medically stable for discharge. Discharge orders placed yesterday afternoon. SW was not notified or aware of d/corders yesterday. ID did give recommendations for discharge abx. SW faxed clinical updates and discharge orders/summary to [facility] for review this morning. Insurance authorization obtained. Stretcher van transportation scheduled for [id number] per facility's arrangements. SOM spoke with pt via phone to provide update and discuss discharge plan. Pt is aware and in agreement with plan. Chart copy requested. Nursing provided with number to call report. SW updated attending physician. No additional SW needs identified at this time, but is available to assist should needs arise.
--- NOTE | 2020-06-03 15:18 | NUR ---
ASSUMED CARE APPROX 0700. PT ALERT AND ORIENTED X4. ASSESSMENT CHARTED AND VSS. PT ON ROOM AIR W/ NO SIGNS OF DISTRESS NOTED. PT TO BE DISCHARGED TODAY BACK TO [facility]. TRANSPORTATION SCHEDULED TO [facility] @[id number]. PT'S WOUND VAC CANNISTERS WILL BE GIVEN TO PT TO DISCHARGE WITH. WOUND VAC STILL IN PLACE TO LT HIP. TELE MONITOR REMOVED FROM PT. PT D/C'D WITH LT UPPER ARM 3L PICC STILL IN PLACE. ALL PORTS FLUSH AND DRAW BACK W/O COMPLICATION. CHART COPY SENT W/ PT.
== END 2020-06-03 15:56 | DRG 853 ==
LOC: ER 11:56 → 3W 14:21 → EROBS 14:21 → 3W 19:46
PROVIDERS: Anesthesiology; Internal Medicine; Nurse Practitioner; Specialist; Student in an Organized Health Care Education/Training Program; ADMIT Hospitalist; ATTEND Hospitalist
DX: A41.9 Sepsis, unspecified organism (principal); L89.323 Pressure ulcer of left buttock, stage 3; L89.313 Pressure ulcer of right buttock, stage 3; U07.1 COVID-19; E43 Unspecified severe protein-calorie malnutrition; E87.1 Hypo-osmolality and hyponatremia; M86.8X8 Other osteomyelitis, other site; I85.00 Esophageal varices without bleeding; R18.8 Other ascites; T84.52XA Infection and inflammatory reaction due to internal left hip prosthesis, initial encounter; K76.6 Portal hypertension; K72.90 Hepatic failure, unspecified without coma; K74.69 Other cirrhosis of liver; K74.60 Unspecified cirrhosis of liver; I10 Essential (primary) hypertension; E78.5 Hyperlipidemia, unspecified; D63.8 Anemia in other chronic diseases classified elsewhere; Z96.642 Presence of left artificial hip joint; K31.9 Disease of stomach and duodenum, unspecified; L89.629 Pressure ulcer of left heel, unspecified stage; B19.20 Unspecified viral hepatitis C without hepatic coma; E11.69 Type 2 diabetes mellitus with other specified complication; L30.8 Other specified dermatitis; B95.62 Methicillin resistant Staphylococcus aureus infection as the cause of diseases classified elsewhere; N50.89 Other specified disorders of the male genital organs; Z89.422 Acquired absence of other left toe(s); Z86.19 Personal history of other infectious and parasitic diseases; Z86.14 Personal history of Methicillin resistant Staphylococcus aureus infection; Z79.4 Long term (current) use of insulin
CPT/HCPCS: 10879; 50101; 50382; 50414; 50953; 51412; 53000; 53078; 56524; 56528; 56530; 57095; 57103; 57242; 62110; 62900

== ENCOUNTER → 2020-08-26 | Outpatient (CLI) | payer OTHER ==
[~2020-08-26] MED LIST changes: +ALDACTONE50 MG PO; +CALCIUM500 MG PO; +CIPROFLOXA IVPB; +METRO IV 5500 MG/100 IV; +PANTOPRAZOLE SO40 M1 PO; +THERA-M CAPLET1 EAC1 PO
== END ==
LOC: LAB 07:40
PROVIDERS: ATTEND Orthopaedic Surgery
DX: Z01.812 Encounter for preprocedural laboratory examination (principal); Z20.828 Contact with and (suspected) exposure to other viral communicable diseases

== ENCOUNTER 2020-08-31 07:56 | Inpatient (IN) | payer OTHER ==
[~2020-08-31] VITALS: Ht 177.8 cm; Wt 79.4 kg
[~2020-08-31 07:56] MED LIST changes: +LEVEMIR100 UNIT/2 SUBQ; +MAGNESIUM250 M1 PO; +PROTONIX40 M4 PO; +SPIRONOLACTONE50 MG PO; +TUMS300 MG PO
[2020-08-31 20:19] VITALS: BP 133/59
[2020-08-31 21:35] VITALS: BP 108/60
[2020-09-01 00:21] VITALS: BP 122/57
[2020-09-01 04:15] VITALS: BP 129/57
[2020-09-01 05:42] LABS: ABSOLUTE NEUTROPHILS 6.8 thou/uL (1.4-8.2); BASOPHILS 0.5 % (0.0-2.0); EOSINOPHILS 1.7 % (0.0-3.0); HEMATOCRIT 21.4 % (42.0-52.0); HEMOGLOBIN 7.6 gm/dL (14.0-18.0); LYMPHOCYTES 11.8 % (24.0-44.0); MCH 32.1 pg (26.0-34.0); MCHC 35.3 g/dL (28.0-37.0); MCV 90.7 fL (80.0-100.0); MONOCYTES 8.8 % (1.0-8.0); PLATELET COUNT 139 thou/uL (150-400); POLYS 77.2 % (36.0-66.0); RBC 2.36 mil/uL (4.50-6.00); RDW 16.8 % (10.5-14.5); WBC 8.8 thou/uL (4.0-11.0)
[2020-09-01 06:41] LABS: ALBUMIN 2.2 g/dL (3.4-5.0); CALCIUM 8.1 mg/dL (8.5-10.1); CREATININE 1.4 mg/dL (0.7-1.3); POTASSIUM 5.1 mmol/L (3.5-5.1); TOTAL BILIRUBIN 0.9 mg/dL (0.2-1.0); TOTAL PROTEIN 7.8 g/dL (6.4-8.2)
--- NOTE | 2020-09-01 07:13 | NUR ---
ASSUMED PT CARE AROUND 1929. AXOX4. L HIP DRESSING CDI. HEMOVAC REMOVED PER MD ORDER THIS AM. NO S/S ACUTE DISTRESS NOTED OR REPORTED AT THIS TIME. CARE TRANSFERRED TO AM RN AT THIS TIME.
[2020-09-01 08:34] VITALS: BP 112/51
[2020-09-01 20:33] VITALS: BP 131/55
[2020-09-02 04:46] VITALS: BP 124/60
[2020-09-02 05:48] LABS: WBC 7.1 thou/uL (4.0-11.0)
[2020-09-02 05:53] LABS: HEMOGLOBIN 7.1 gm/dL (14.0-18.0); MCH 33.3 pg (26.0-34.0); MCHC 37.4 g/dL (28.0-37.0); MCV 89.2 fL (80.0-100.0); RBC 2.13 mil/uL (4.50-6.00); RDW 16.5 % (10.5-14.5)
[2020-09-02 06:03] LABS: CALCIUM 7.6 mg/dL (8.5-10.1); CREATININE 1.3 mg/dL (0.7-1.3); POTASSIUM 4.7 mmol/L (3.5-5.1)
--- NOTE | 2020-09-02 07:29 | NUR ---
ASSUMED PT CARE AROUND 1930. AXOX4. L HIP DRESSING CDI. VSS. CIRITICAL HCT IN AM REPORTED TO TIA ZHENG AND RECEIVED AN ORDER TO RECHECK 1200. NOTED. NO S/S ACUTE DISTRESS NOTED OR REPORTED AT THIS TIME. CARE TRANSFERRED TO VERONICA PASTOR.
[2020-09-02 08:40] VITALS: BP 129/58
[2020-09-02 12:42] LABS: HEMOGLOBIN 6.9 gm/dL (14.0-18.0)
[2020-09-02 12:43] LABS: HEMATOCRIT 18.7 % (42.0-52.0)
--- NOTE | 2020-09-02 13:29 | NUR ---
ASSESSMENT-S/W PT BY PHONE AND HE TELLS ME HE LIVES AT HOME WITH HIS GIRLFRIEND. PT USES A WC TO GET AROUND AND TAKES A SPONGE BATH. THEY HAVE A RAMP TO GET IN THE HOME. PT IS ON SERVICE WITH [facility]. LAUNDRY IS LOCATED IN THE BASEMENT AND SON DOES THIS. GIRLFRIED DOES THE COOKING AND THE CLEANING. HE HAS A FRIEND OR HIS SON TRANPORTS. PT HAS A H DR MARIA C PIÑA. PT HAS BEEN TO REHAB AT [facility] IN THE PAST. PT SAYS HE MAY NEED A WOUND VAC AND PREFERS TO GO HOME WITH HH SERVICES IF POSSIBLE. FOLLOWING TO ASSIST WITH DC PLANNING.
--- NOTE | 2020-09-02 13:52 | NUR ---
ASSUMED CARES AT 0700. PT ALERT AND ORIENTED*4, C/O LEFT HIP PAIN, PAIN MEDICATION ADMINISTERED NEEDED. VITALS REMAIN STABLE. LEFT HIP INCISION DRAINING LARGE AMOUNTS OF SEROUSSANGUINOUS DRAINAGE, YARIEL SATURATED AND DC'D, ABD WITH GAUZE AND TAPE APPLIED TO INCISION PER WOUNDCARE ORDERS. HGB 6.9, HCT 18.7, HOSPITALIST NOTIFIED. PT FEELING DISCOURAGED R/T WOUND HEALING PROCESS TAKING LONGER AND THE SET-BACK. WALKED 6FT WITH PT THIS AM AND TOLERATED WELL. IV ANTIBIOTICS ADMINISTERED PER ORDER. PT VOIDING PER URINAL. Q1H VISUAL CHECKS. CALL LIGHT WITHIN REACH. FALL PRECAUTIONS IN PLACE
[2020-09-02 15:57] VITALS: BP 120/57
[2020-09-02 16:15] VITALS: BP 116/58; BP 146/77
--- NOTE | 2020-09-03 02:09 | NUR ---
patient left hip dressing is c/d/i, no drainage noted. patient vanco trough was 19H called dr. art x4 for new orders to hang vancomycin, with no sucess, notified pharmacy, and channel specialist about drCathy not calling back, no new orders. pain controlled this shift. fall precaution in place. patient in bed asleep at this time breathing regular and unlaboured.
[2020-09-03 05:06] LABS: HEMOGLOBIN 7.6 gm/dL (14.0-18.0); MCH 32.1 pg (26.0-34.0); MCHC 36.1 g/dL (28.0-37.0); RBC 2.35 mil/uL (4.50-6.00); RDW 16.3 % (10.5-14.5); WBC 6.3 thou/uL (4.0-11.0)
[2020-09-03 06:47] VITALS: BP 125/76
--- NOTE | 2020-09-03 10:48 | NUR ---
Patient vanco trough was 19 at 2231 on 09/02/20, Dr. Berrios called, left a voice mail ( [phone]), awaiting Dr. Berrios to make decision whether to give 1100 Vancomycin or not.
--- NOTE | 2020-09-03 14:44 | HC ---
[facility] [place] [address] CONSULTATION Name: ROEL GIPSON Room #: [facility]- ADM IN M.R.#: [id number] Admission: 08/31/20 Attend Phys: Brendan Negro MD Discharge: Date of : 58 Report #: [id number] THIS REPORT FOR: cc: Javi Urias James D. DO Althoff, Jeffrey R. MD ~ DATE OF SERVICE: 09/02/2020 CHIEF COMPLAINT: Venous dermatitis lower extremities as well as incision, left hip. HISTORY OF PRESENT ILLNESS: This is a 60-year-old male patient with whom I am familiar from multiple hospitalizations with a history of venous dermatitis of his lower extremities as well as an infected left hip arthroplasty. He has been admitted and undergone an incision and drainage of the hip. I have been asked to see him with regard to wound care regarding his lower extremities. Nursing is also informed me that the YARIEL VAC that was placed over the incision line has failed and they are requesting dressing orders. PAST MEDICAL HISTORY: Positive for history of diabetes mellitus, hypertension, GI bleeding, hepatitis C, hepatic cirrhosis, esophageal varices, hyperlipidemia and history of recent COVID-19 infection. He has undergone a left hip arthroplasty in December and Girdlestone resection of the arthroplasty. He has had ongoing issues with infection in the hip area. SOCIAL HISTORY: Negative for alcohol or tobacco use. FAMILY HISTORY: Noncontributory. CURRENT MEDICATIONS: Include insulin, magnesium, calcium carbonate, pantoprazole, spironolactone, propranolol, ammonium lactate, ascorbic acid, ferrous sulfate, lactobacillus acidophilus and glipizide. ALLERGIES: No known drug allergies. FAMILY HISTORY: Noncontributory. REVIEW OF SYSTEMS: CONSTITUTIONAL: The patient denies fever, chills or weight loss. NEUROLOGICAL: The patient denies focal weakness, numbness or tingling. EYES: The patient denies visual changes, redness, or drainage. ENT: The patient denies earache, nasal drainage or sore throat. CARDIOVASCULAR: The patient denies chest pain, palpitations or diaphoresis. PULMONARY: The patient denies cough or shortness of breath. [facility] [address] [place] [address] CONSULTATION Name: ROEL GIPSON Room #: 456-P [facility] IN M.R.#: [id number] Admission: 08/31/20 Attend Phys: Brendan Negro MD Discharge: Date of : 58 Report #: [id number] GASTROINTESTINAL: The patient denies nausea, vomiting, diarrhea or abdominal pain. ORTHOPEDIC: The patient complains of pain in the left hip area. Notes swelling of his lower extremities. Other systems in a 14-point review of systems are negative. PHYSICAL EXAMINATION: VITAL SIGNS: At this time include temperature 36.9, pulse 81, respiratory rate 16 and blood pressure 120/58. GENERAL: This is a chronically ill-appearing male patient who appears to be in minimal distress. HEENT: Head normocephalic. Nose and throat clear. NECK: Supple. LUNGS: Clear. ABDOMEN: Obese, soft, nontender. EXTREMITIES: Left hip demonstrates a posterior trochanteric type incision line. There are few gaps in the incision, which is held together with nylon suture. There is some drainage and the dressing is partially saturated. Lower extremities demonstrate 2+ edema. He has venous dermatitis both lower extremities, left greater than right. NEUROLOGIC: The patient is alert and oriented and appropriate. LABORATORY DATA: Include sodium 134, potassium 4.7, chloride 102, CO2 of 25, BUN 22, creatinine 1.3, glucose 222. White blood cell count 7.1 with a hemoglobin of 7.1. CLINICAL IMPRESSION: 1. Chronic infection of the left hip, now status post incision and drainage. 2. Type 2 diabetes mellitus. 3. Hypertension. 4. Venous dermatitis, bilateral lower extremities. RECOMMENDATIONS: At this point in time, we will recommend AmLactin lotion to the lower extremities and elevation for edema control. We will recommend dry 4 x 4s and ABDs twice daily and p.r.n. to the incision line as the YARIEL VAC has currently failed. ID will be seeing him and recommend continued antibiotics based on the recommendations. Continuation medical management and nutritional support. I appreciate being asked to see the patient in consultation. <ELECTRONICALLY SIGNED> By: Sanjiv Witt MD 09/03/20 1444 [id number] Sanjiv Witt MD /nt
[2020-09-03 14:55] VITALS: BP 138/71
--- NOTE | 2020-09-03 16:37 | NUR ---
Dr. Berrios came to the floor around 4pm, told the staff that the Vancomycin should be continued. Will pass it on to the night nurse.
[2020-09-03 19:33] VITALS: BP 136/59
--- NOTE | 2020-09-03 20:08 | HC ---
[facility] [place] [address] [place] [address] CONSULTATION Name: ROEL GIPSON Room #: [facility]- ADM IN M.R.#: [id number] Admission: 08/31/20 Attend Phys: Brendan Negro MD Discharge: Date of : 58 Report #: [id number] THIS REPORT FOR: cc: Javi Urias James D. DO Geha, Daniel J. MD ~ DATE OF SERVICE: 08/31/2020 REASON FOR CONSULTATION: I was asked to evaluate concerning left hip prosthetic joint infection. HISTORY OF PRESENT ILLNESS: The patient is a 60-year-old with underlying cirrhosis, hepatitis C and chronic ascites and edema, fractured his left hip requiring hemiarthroplasty earlier this year. Secondary infection developed postoperatively. This did not improve despite multiple debridements. Ultimately required a Girdlestone procedure. Cultures had revealed mixed amish including MRSA, pseudomonas and gram-negative anaerobes. In May underwent Girdlestone procedure and prolonged IV antibiotic therapy. Again, the patient failed to heal the region and has had chronic sinus tract drainage. Despite his IV antibiotic, followed by oral combination therapy, he did not improve and presented today for further surgical debridement performed by Dr. Negro earlier today. No intraoperative complications noted. He underwent debridement and postoperatively is stable. He is now on vancomycin. It is noted that he has been off antibiotics for about a week prior to this procedure. No fever, chills or sweats. Does have 2+ peripheral edema noted. PAST MEDICAL HISTORY, FAMILY HISTORY AND SOCIAL HISTORY: Unchanged from my previous consultation. ALLERGIES: None known. MEDICATIONS: As noted on his MAR, which were reviewed. REVIEW OF SYSTEMS: A 14-point review of system was negative other than what has been described above. PHYSICAL EXAMINATION: VITAL SIGNS: Afebrile and hemodynamically stable. GENERAL: He is alert and cooperative and pleasant, in no acute distress. CHEST: Clear. HEART: Regular. ABDOMEN: Soft and nontender. He did have suspected small amount of ascites. EXTREMITIES: He had 2+ peripheral edema from the waist down. Left hip incision had incisional VAC in place. [facility] [address] [place] [address] CONSULTATION Name: ROEL GIPSON Room #: 456- ADM IN M.R.#: [id number] Admission: 08/31/20 Attend Phys: Brendan Negro MD Discharge: Date of : 58 Report #: [id number] LABORATORY STUDIES: Reviewed. MICROBIOLOGY: Reviewed. Operative note reviewed. IMPRESSION: 1. A 60-year-old with cirrhosis and chronic lower extremity edema, who has failed Girdlestone explantation of his hardware. Now undergoing further surgical debridement in hopes of being able to close his incision and maintain control of this infection. 2. Diabetes. 3. Hypertension. RECOMMENDATIONS: We will continue combination IV antibiotic therapy with vancomycin and meropenem. We will await final culture results and decide next plan of care. <ELECTRONICALLY SIGNED> By: Kan Berrios MD 09/03/202007 0459 Kan Berrios MD /nt
--- NOTE | 2020-09-04 02:37 | NUR ---
PT CARE ASSUMED WITH PT IN BED WATCHING TV.PT IS A/O X4.PT WOUNF ON LT HIP CHANGED TWICE DURING THE SHIFT.WOUND DRAINING.PT IS ON RA AND ACCUCHECK ACHS .PT TROUGH FOR VANCO 19 AND NURSE SAID DOCTOR IS OK WITH CONTINUING THE VANCOMYCIN.WILL CONTINUE TO MONITOR PER POC
[2020-09-04 05:19] LABS: HEMATOCRIT 21.2 % (42.0-52.0); HEMOGLOBIN 7.6 gm/dL (14.0-18.0); MCH 31.9 pg (26.0-34.0); MCV 88.8 fL (80.0-100.0); RBC 2.39 mil/uL (4.50-6.00); RDW 15.9 % (10.5-14.5)
[2020-09-04 08:13] VITALS: BP 138/66
[2020-09-04 16:25] VITALS: BP 129/69
[2020-09-04 19:14] VITALS: BP 134/74
--- NOTE | 2020-09-05 04:15 | NUR ---
ASSUMED CARE OF PT AT 1900HRS, PT AOX4 AND LETS NEEDS BE KNOWN. FALL PRECAUTION IN PLACE. ASSESMENT CHARTED. ABX TREATMENT CONTINUED. PT DENIES PAINM, NAUSEA OR SOA. DRESSING CHANGE DONE PER ORDER. PT WAS ABLE TO GET COMFORTABLE AND SLEEP PART OF THE SHIFT. VSS AND NO S/S OF ACUTE DOSTRESS. WILL CONTINUE TO MONITOR.
[2020-09-05 05:33] LABS: ALBUMIN 1.9 g/dL (3.4-5.0); PHOSPHORUS 3.1 mg/dL (2.5-4.9); POTASSIUM 4.5 mmol/L (3.5-5.1)
[2020-09-05 07:27] VITALS: BP 143/64
--- NOTE | 2020-09-05 10:12 | NUR ---
CM SPOKE WITH PT THIS AM. PT INDICATED HE HOPES TO BE ABLE TO SWITCH TO ORAL ABX AND DISHCARGE HOME WITH [facility] OF [facility]. CM REQUESTED AND RECEIVED PERMISSION TO SEND REFERRAL TO [facility] TO GET IDEA TO WHAT HOME INFUSION WOULD COST SHOULD PT NEED TO DC ON IV ABX. REFERRAL FAXED AWAITING RESPONSE AND FINAL INDICATION FROM DR. ESCOTO. CM TO FOLLOW INDICATED WITH DC PLANNING.
--- NOTE | 2020-09-05 11:52 | O ---
[facility] [place] [address] [place] [address] OPERATIVE REPORT Name: ROEL GIPSON Room #: 456- ADM IN M.R.#: [id number] Admission: 08/31/20 Attend Phys: Brendan Negro MD Discharge: Date of : 58 Report #: [id number] THIS REPORT FOR: cc: Javi Urias,Javi Gil,Brendan Murillo MD ~ CC: Javi Negro DATE OF SERVICE: 08/31/2020 PREOPERATIVE DIAGNOSIS: Chronic infection, left hip. POSTOPERATIVE DIAGNOSIS: Chronic infection, left hip. PROCEDURE: Irrigation and debridement of left hip. SURGEON: Brendan Negro MD. SCISSORS GRINDER: Merced Marques PA-C. ANESTHESIA: General. FINDINGS: Chronic sinus tract with purulence down into the pseudo hip joint. SPECIMENS: Cultures taken x2. CONDITION UPON LEAVING THE OPERATING ROOM: Stable. ESTIMATED BLOOD LOSS: 100 mL. INDICATIONS FOR PROCEDURE: The patient is a 60-year-old gentleman who has had a chronic left hip infection, status post hemiarthroplasty with explantation and then antibiotic cement spacer that was subsequently expanded secondary to chronic infection and now a chronically infected hip via Girdlestone. He has been on IV antibiotics and transitioned to oral antibiotics; has had continued drainage and after discussion with him as well as Infectious Disease, we decided for repeat irrigation and debridement of the left hip. DESCRIPTION OF PROCEDURE: Risks, benefits, alternatives, complications were discussed in detail with the patient including but not limited to risk of anesthesia, risk of damage to nerves, arteries, blood vessels, risk for continued infection, need for continuing reoperation. Informed consent was obtained from the patient. Left hip was appropriately marked in the preoperative holding area. Preoperative antibiotics were held until intraoperative cultures were obtained. He was brought to the operating room and [facility] [address] [place] [address] OPERATIVE REPORT Name: ROEL GIPSON Room #: 456-P [facility] IN M.R.#: [id number] Admission: 08/31/20 Attend Phys: Brendan Negro MD Discharge: Date of : 58 Report #: [id number] placed in supine position on operating room table. General anesthesia was induced without complication. He was then placed in the right lateral decubitus position with the left hip uppermost. Left hip and lower extremity were then prepped and draped in normal sterile fashion. Timeout was performed properly identifying the patient and procedure as well as the instrumentation. All in the operating room were in agreement. The previous scar was then opened with a 10 blade and the sinus tract was followed down into the hip joint. Cultures of the fluid were taken. There was noted to be some purulence. Devitalized tissue was debrided with a rongeur. The sinus tract and pseudo joint were then thoroughly irrigated with normal saline under pulse lavage. A deep Hemovac drain was placed and the skin was closed with 2-0 nylon and a YARIEL dressing was applied. The patient tolerated this procedure well and went to recovery room under care of anesthesia postoperatively. <ELECTRONICALLY SIGNED> By: Brendan Negro MD 09/05/20 1152 [id number] [id number] Brendan Negro MD /nt
--- NOTE | 2020-09-05 12:26 | NUR ---
PATIENT CARE ASSUMED AT 0700 - PATIENT ALERT AND ORIENTED X 4. PLEASANT AND FREE OF PAIN DISCOMFORT WHEN ASSESSED. PATIENT BLOOD SUGARS HAVE BEEN RUNNING AT 166 FOR BREAKFAST AND 215 FOR LUNCH REQUIRING INSULIN. PATIENT DRESSING CHANGED ON LEFT HIP - SLIGHT DRAINABE NOTED. NOTED SUTURES OPENED ON HALF OF INCISION WHEN CHANGING DRESSING. CALLED DR. PANIAGUA OFFICE - ORTHOPEDIC SURGEON'S OFFICE. WAS TOLD PATIENT IN SACUL IN SURGERY AT THIS TIME. PATIENT HAD LAST BM LAST EVENING. PATIENT'S AM VITALS STABLE WHEN TAKEN. WORKED WITH THERAPY AND WAS ABLE TO AMBULATE 40 FEET REPORTED BEFORE TIRING.
[2020-09-05 15:52] VITALS: BP 142/85
[2020-09-05 19:56] VITALS: BP 129/58
[2020-09-06] VITALS (7 sets, daily range): BP systolic 123–128; BP diastolic 62–75
--- NOTE | 2020-09-06 03:46 | NUR ---
ASSESSMENT DOCUMENTED.PT BEEN RESTING IN NO ACUTE DISTRESS.A/OX4.VSS.AFEBRILE.REMAINS ON ANTIBIOTICS PER ORDERS.LEFT HIP DRESSING CDI.DENIES PAIN.PT PROGRESSING TOWARDS DISCHARGE GOALS.NO CONCERNS VOICED BY THE PATIENT.
--- NOTE | 2020-09-06 09:14 | NUR ---
Assess due to pt with chronic left hip infection. Multiple admissions. Visit this am and pt ate 100% of a large breakfast. States appetite is very good but has lost about 10-15 lb-likely due to infectious process and persistant hyperglycemia. Refuses oral supplements. Will double protein foods at meals. On insulin coverage. Low nutrition risk with appropriate nutrition inteventions in place.
--- NOTE | 2020-09-06 10:14 | NUR ---
WOUND CONSULT; ROUNING ON THIS PATIENT WITH Letty SALAZAR TODAY TO APPLY A WOUND VAC TO THE LEFT HIP WOUND. THE WOUND HAS A LARGE AMOUNT OF SEROSANGINOUS DRAINAGE. CURRENTLY THE PATIENTS WOUND IS PACKED WITH AQUACEL AG COVERED WITH AN ABD. NO ACUTE ODOR PRESENT/ THE WOUND IS TENDER TO THE PATIENT BUT THE PRCEEDURE WAS TOLERATED WELL BY THE PATIENT. THE WOUND BE IS A PALE RED AND IS CLEAR OF NECROSIS. RECOMMENDATION; APPLY WOUND VAC PER ORDERS. RN PRESENT
--- NOTE | 2020-09-06 10:35 | NUR ---
The patient is wanting to discharge today if he can. He had a dressing change this morning on his left hip. He tolerated it well and is waiting for a home wound vac to be placed. Patient has very dry skin and an open sore on his lower left leg. Ammonium lactate was put on it topically.
[2020-09-06] MEDS ORDERED: MERREM1 GM IVPB (10:48)
[2020-09-06] MEDS ORDERED: VANCO 1 GR1 GM/250 M IVPB (10:52)
--- NOTE | 2020-09-06 12:01 | NUR ---
I have reviewed the student documentation.
--- NOTE | 2020-09-06 12:09 | NUR ---
VASCULAR ACCESS CONSULTED FOR PICC PLACEMENT. DISCUSSED BENEFITS AND RISK OD PICC WITH PT,VERBALIZED UNDERSTANDING. PT'S LABS,MEDS,HX,ORDER AND CONSENT VERIFIED. MARK BASILIC WAS WIDELY PATENT WITH USG. 4FR POWER SL PICC TRIMMED TO 44CM INSERTED TO 0CM. PT TOLERATED WELL. STAT CXR ORDERED
--- NOTE | 2020-09-06 12:14 | NUR ---
CARE TEAM INDICATED THAT PT IS MEDICALLY STABLE TO DISCHARGE HOME THIS DAY. PT IS TO DC ON IV VANC Q12 AND MEROPENEM Q8. CM FAXED ORDERS TO [facility] AWAITING RESPONSE WITH TIME OF BEDSIDE TEACH. CM FAXED ORDERS TO [facility] PT HAD BEEN ON SERVICE WITH THEM COMMISSARY OFFICER. CM SPOKE WITH PT AND HE IS AWARE AND AGREEABLE. PT HAD WOUND VAC ADMINISTERED THIS AM. MEETA WITH WC IS ORDERING HOME VAC FOR PT. ANTICIPATE DC HOME THIS DAY WITH [facility], [facility], AND [facility]. CM TO FOLLOW TO ENSURE ALL DC COMPONENTS.
--- NOTE | 2020-09-06 13:10 | NUR ---
CXR CONFIRMED CAJ ,PICC RELEASED FOR IMMEDIATE USE PER PROTOCOL TO RUTHY MARTIN
--- NOTE | 2020-09-06 16:08 | NUR ---
ASSUMED PT CARE THIS AM. PT VSS, A&OX4. PT WOUND DRESSING CHANGED BY WOUND CARE NURSE TODAY, ALONG WITH A WOUND VAC BEING PLACED BY THEM. PT TOOK MEDS WITHOUT COMPLAINT. USES A URINAL WHEN NEEDED. NO COMPLAINTS OF PAIN. LOTION APPLIED TO LEGS PER EMAR. PICC LINE PLACED AND FLUIDS INFUSING. EATING WELL, HYDRATION ENCOURAGED.
--- NOTE | 2020-09-06 16:32 | NUR ---
FAXED REFERRAL TO S HH SPOKE WITH JOSE CARLOS IN INTAKE THEY RECEIVED REFERRAL BUT CANNOT ACCEPT THEY CANNOT MEET PT'S NEEDS. FAXED REFERRAL TO [facility] RECEIVED CONFIRMATION WILL F/U WITH HH IN THE AM.
--- NOTE | 2020-09-07 06:53 | NUR ---
Assumed pt care at 1900. A/OX4, VSS. Pt questioning why he didn't dc? Updated pt that HH was still pending approval;he gave me marketing copywriter Anna number indicating he has used them before and would like to try them again,email sent to CM for updates. Pt voiding via urinal w/o problems. PICC patent to LUE w/abts infusing.Woundvac patent on Left hip with continuous suction at 125mmHg,small amt serosanguineous noted. Fall precautions in place;calls approp for help. BRITTNEY not in place yet,bed socket wasn't working and maintenance couldn't fix it last;pt chose not to switch beds at night. Will pass on info to day nurse.
[2020-09-07 07:37] VITALS: BP 133/65
[2020-09-07 09:26] VITALS: BP 127/64
--- NOTE | 2020-09-07 10:08 | NUR ---
[facility] IS ABLE TO ACCEPT PT FOR SERVICES UPON DC. THEY CAN DO A SOC TOMORROW SATURDAY 09/08. ORDERS FAXED. PT IS AWARE AND AGREEABLE. PT'S [facility] WAS DELIVERED YESTERDAY EVENING. WC ADMINISTERED HOME VAC THIS AM. [facility] DELIVERED IV ABX TO PT'S HOME. PT HAS TRANSPORT AVAIABLE TO HIM THIS DAY. NO OTHER CM INTERVENTION INDICATED. [facility], [facility], AND [facility]. PT HAD ALL OTHER NEEDED DME. CASE CLOSED.
[2020-09-07 10:38] VITALS: BP 127/64
--- NOTE | 2020-09-07 11:01 | NUR ---
PT DISCHARGING TODAY TO HOME WITH [facility] SPOKE WITH ALFIE IN INTAKE SHE RECEIVED ORDERS AND WILL F/U WITH LYLY MONTANEZ) REGARDING ABX INFUSION TIMES IF SHE HAS ANY QUESTIONS, FAXED DC ORDERS/SUMMARY TO [facility] SPOKE WITH SANDY IN INTAKE THEY RECEIVED ORDERS.
--- NOTE | 2020-09-07 11:22 | NUR ---
ASSUMED CARE OF PATIENT AT APPROX 0800. ASSESSMENT CHARTED. MEDICATIONS ADMINISTERED PER DEC. VSS. PATIENT IS A&OX4 AND MAKES NEEDS KNOW. CLEARED BY CM TO D/C WITH HH THIS DAY AFTER WOUND VAC PLACED BY WOUND NURSE AND EDUCATION GIVEN. DENIED PAIN EVEN WHEN WORKING W PT AND OT. UP SBA/X1 AND VOICED NO ISSUES. DISCHARGE TODAY AT AROUND 1115. SEE SUPPLEMENTAL WOUND CARE NOTE
--- NOTE | 2020-09-07 19:07 | NUR ---
I AGREE WITH NURSING ASSESSMENT AND NURSING NOTE DONE BY CHERYL/WASHERY BOSS.
== END 2020-09-07 11:13 | disposition home health service (06) | DRG 480 ==
LOC: TBA 07:56 → 4W 07:56 → ADMC 10:57 → 4W 15:08 → ADMC 17:37 → 4W 09-07 11:13
PROVIDERS: Hospitalist; Nurse Practitioner Family; Specialist; ADMIT Orthopaedic Surgery; ATTEND Orthopaedic Surgery
PROC: 30233N1 Transfusion of Nonautologous Red Blood Cells into Peripheral Vein, Percutaneous Approach (ICD-10-PCS; principal; 2020-09-02)
PROC: 0S9B0ZZ Drainage of Left Hip Joint, Open Approach (ICD-10-PCS; 2020-09-02)
DX: T84.52XA Infection and inflammatory reaction due to internal left hip prosthesis, initial encounter (principal); L89.323 Pressure ulcer of left buttock, stage 3; L89.313 Pressure ulcer of right buttock, stage 3; E43 Unspecified severe protein-calorie malnutrition; M00.052 Staphylococcal arthritis, left hip; B95.62 Methicillin resistant Staphylococcus aureus infection as the cause of diseases classified elsewhere; B18.2 Chronic viral hepatitis C; K74.60 Unspecified cirrhosis of liver; E11.9 Type 2 diabetes mellitus without complications; I10 Essential (primary) hypertension; E78.5 Hyperlipidemia, unspecified; Z96.642 Presence of left artificial hip joint; L30.8 Other specified dermatitis; Y83.8 Other surgical procedures as the cause of abnormal reaction of the patient, or of later complication, without mention of misadventure at the time of the procedure; D50.9 Iron deficiency anemia, unspecified; B96.5 Pseudomonas (aeruginosa) (mallei) (pseudomallei) as the cause of diseases classified elsewhere; Z89.422 Acquired absence of other left toe(s); Y92.89 Other specified places as the place of occurrence of the external cause; Z68.25 Body mass index [BMI] 25.0-25.9, adult
CPT/HCPCS: 10047; 27000; 50010; 50101; 50382; 50414; 53078; 56527; 57095; 57103; 57116; 62110; 62900; 70005

== ENCOUNTER 2020-09-12 11:58 | Inpatient (IN) | payer OTHER ==
[~2020-09-12] VITALS: Ht 180.3 cm; Wt 85.3 kg
--- NOTE | ~2020-09-12 | HC ---
[facility] [place] [address] [place] [address] CONSULTATION Name: ROEL GIPSON Room #: 3- ADM IN M.R.#: [id number] Admission: 09/12/20 Attend Phys: Hal Charles MD Discharge: Date of : 58 Report #: [id number] THIS REPORT FOR: cc: [facility] - Clinic physician unknown [facility] - Clinic physician unknown Sanjiv Witt MD ~ DATE OF SERVICE: 09/13/2020 CHIEF COMPLAINT: Left hip surgical wound and bilateral lower extremity ulceration. HISTORY OF PRESENT ILLNESS: This is a 60-year-old male patient with whom I am familiar from repetitive admissions for wound care. I saw him in the office yesterday. He has had surgical debridement of his left hip and we have been following him for surgical wound which is dehiscent; however, he was noted to have brand new breakdown with blistering, redness and drainage to both lower legs. It was felt that hospitalization would be required. He was admitted through the Emergency Department. PAST MEDICAL HISTORY: Positive for history of osteomyelitis of the left hip. He has undergone multiple surgical debridements, status post failed Girdlestone explantation of his hardware. He has a history of hyperlipidemia, diabetes, hepatitis C with hepatic encephalopathy and esophageal varices. ALLERGIES: No known drug allergies. MEDICATIONS: Include insulin, calcium carbonate, magnesium, pantoprazole, spironolactone, propranolol, ammonium lactate, ascorbic acid, ferrous fumarate, lactobacillus acidophilus, calcium carbonate. SOCIAL HISTORY: Negative for current alcohol or tobacco use. FAMILY HISTORY: Noncontributory. REVIEW OF SYSTEMS: CONSTITUTIONAL: The patient denies fever, chills or weight loss. NEUROLOGICAL: The patient denies focal weakness, numbness or tingling. EYES: The patient denies visual changes, redness, or drainage. ENT: The patient denies earache, nasal drainage or sore throat. CARDIOVASCULAR: The patient denies chest pain, palpitations or diaphoresis. PULMONARY: The patient denies cough or shortness of breath. GASTROINTESTINAL: The patient denies nausea or abdominal pain. ORTHOPEDIC: The patient complains of pain, swelling, redness and drainage from his legs as well as the left hip wound. [facility] [address] [place] [address] CONSULTATION Name: ROEL GIPSON Room #: 463-P ADM IN M.R.#: [id number] Admission: 09/12/20 Attend Phys: Hal Charles MD Discharge: Date of : 58 Report #: [id number] Other systems in a 14-point review of systems are negative. PHYSICAL EXAMINATION: VITAL SIGNS: At this time include temperature 36.4, pulse 72, respiratory rate 18 and blood pressure 134/70. GENERAL: This is a chronically ill-appearing male patient who appears to be in moderate discomfort. HEENT: Head is normocephalic. Nose and throat clear. NECK: Supple. LUNGS: Clear. ABDOMEN: Soft. Bowel sounds present. His abdomen is distended and small amount of ascites suspected. MUSCULOSKELETAL: Left hip demonstrates the surgical wound has healthy, clean, granulating and is improved since he last was in the hospital. EXTREMITIES: Lower extremities show 3+ edema. He has weeping and multiple blisters surrounding erythema and swelling of his lower legs and feet. NEUROLOGIC: The patient is alert and moving all 4 extremities. LABORATORY STUDIES: Include sodium 133, potassium 5.9, chloride 102, CO2 of 25, BUN 31, creatinine 1.2, glucose 365. White blood cell count 6.3 with hemoglobin of 8.0. CLINICAL IMPRESSION: 1. Surgical wound to the left hip, status post hemiarthroplasty of the left hip and subsequent hardware infection, status post explantation of hardware. 2. 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 3. Lower extremity venous ulcerations with cellulitis and wound infection. 4. Diabetes mellitus. 5. History of hepatic encephalopathy. RECOMMENDATIONS: At this point in time, we will recommend topical care of the lower extremities with Xeroform, Kerlix and Steven wraps as well as elevation of the lower extremities to control edema. Antibiotics per Infectious Disease. We will recommend continuation of the wound VAC to the left hip with black foam 125 mmHg if continuous negative pressure. The patient will need a low air loss mattress, q. 2 hour turning and positioning and PRAFO boots while he is in bed. He will need ongoing nutritional support. We need to be cautious with total protein consumption due to his liver failure. I appreciate being asked to see him in consultation. By: [phone] Sanjiv Witt MD /nt
[2020-09-12 12:04] VITALS: BP 141/78
[2020-09-12 13:26] LABS: ABSOLUTE NEUTROPHILS 5.5 thou/uL (1.4-8.2); BASOPHILS 0.6 % (0.0-2.0); EOSINOPHILS 2.2 % (0.0-3.0); HEMATOCRIT 26.1 % (42.0-52.0); HEMOGLOBIN 9.1 gm/dL (14.0-18.0); MCH 31.6 pg (26.0-34.0); MCV 90.2 fL (80.0-100.0); PLATELET COUNT 176 thou/uL (150-400); POLYS 73.2 % (36.0-66.0); RBC 2.89 mil/uL (4.50-6.00); RDW 15.9 % (10.5-14.5); WBC 7.5 thou/uL (4.0-11.0)
[2020-09-12 13:37] LABS: CALCIUM 9.6 mg/dL (8.5-10.1); CREATININE 0.9 mg/dL (0.7-1.3); POTASSIUM 4.9 mmol/L (3.5-5.1)
[2020-09-12 13:44] LABS: ALBUMIN 2.4 g/dL (3.4-5.0); TOTAL BILIRUBIN 0.7 mg/dL (0.2-1.0); TOTAL PROTEIN 8.4 g/dL (6.4-8.2)
[2020-09-12 14:00] VITALS: BP 169/87
[2020-09-12 18:08] VITALS: BP 169/87
[2020-09-12 18:26] VITALS: BP 147/69
[2020-09-12 18:45] VITALS: BP 168/82
[2020-09-12 19:30] VITALS: BP 150/86
--- NOTE | 2020-09-13 04:19 | NUR ---
ADMISSION COMPLETED. PT IS ALERT AND ORIENTED. PICTURES OF LEGS AND LEFT HIP WOUND TAKEN. PT C/O PAIN, GETTING IV DIULADID AND ORAL PAIN MEDS ALTERNATING WITH RELIEF.ON IV ABTS. USES URINAL AVAILABLE BY BEDISDE. CALLS APPROPRIATELY.AFEBRILE. NO COUGH OR SOA NOTED.CALL LIGHT WITHIN REACH.
[2020-09-13 05:38] LABS: ABSOLUTE NEUTROPHILS 5.3 thou/uL (1.4-8.2); BASOPHILS 0.1 % (0.0-2.0); EOSINOPHILS 0.1 % (0.0-3.0); HEMATOCRIT 23.2 % (42.0-52.0); LYMPHOCYTES 11.6 % (24.0-44.0); MCH 31.4 pg (26.0-34.0); MCHC 34.6 g/dL (28.0-37.0); MCV 90.8 fL (80.0-100.0); MONOCYTES 4.4 % (1.0-8.0); PLATELET COUNT 128 thou/uL (150-400); POLYS 83.8 % (36.0-66.0); RBC 2.56 mil/uL (4.50-6.00); RDW 15.7 % (10.5-14.5); WBC 6.3 thou/uL (4.0-11.0)
[2020-09-13 05:47] LABS: CALCIUM 8.4 mg/dL (8.5-10.1); CREATININE 1.2 mg/dL (0.7-1.3); MAGNESIUM 1.8 mg/dL (1.8-2.4)
[2020-09-13 05:49] LABS: POTASSIUM 5.9 mmol/L (3.5-5.1)
[2020-09-13 06:07] VITALS: BP 141/74
[2020-09-13 07:15] VITALS: BP 134/70
--- NOTE | 2020-09-13 08:39 | NUR ---
Assess due to pt with bilateral lower venous stasis ulcers and left hip joint prosthetic infection. Multiple admissions. Was recently just discharged 09/07 now readmitted. Pt generally eats well, does not like oral supplements but will tolerate double protein foods. Wt is up 10 lb but also on diuretic. BG better control than last weeks admission. Low nutrition risk with appropriate nutrition interventions in place.
--- NOTE | 2020-09-13 14:08 | NUR ---
ASSUMED PT CARE THIS AM. PT VSS, A&OX4. PT REPORTED PAIN MANAGED WELL WITH MEDICATION PER EMAR. WOUND NURSE CAME AND CHANGED DRESSING ON RIGHT HIP AND BILATERAL LOWER EXTREMITIES. WOUND VAC REPLACED AT 125. PT USING A URINAL AND BEDPAN. BLOOD SUGAR MANAGED WITH INSULIN. FLUIDS ENCOURAGED. IV PATENT, FLUSHES WELL. IV NURSE CHANGED PICC LINE DRESSING TODAY. LOWER EXTREMITIES ELEVATED PER DR ESCOTO.
[2020-09-13 14:50] VITALS: BP 133/80
--- NOTE | 2020-09-13 16:08 | NUR ---
PT ADMITTED RELATED TO BLE CELLULITIS AND LEFT HIP WOUND. CM REVIEWED CHART AND SPOKE WITH CARE TEAM. PT IS FAMILIAR TO CM FROM PREVIOUS ADMISSIONS. PT HAD DISCHARGED HOME 09/[address] [facility], [facility], AND A [facility]. PT HAS READMITTED FROM THE WOUND CLINIC. CM TO FOLLOW INDICATED WITH DC PLANNING.
[2020-09-13 19:58] VITALS: BP 116/62
--- NOTE | 2020-09-14 05:16 | NUR ---
Pt. rested quietly at short intervals during the night when checked on during frequent rounds. Pain meds given (see emar) for c/o lower extremity pain with some relief noted. Wound vac intact to left hip. Bed alarm is on.
[2020-09-14 07:47] VITALS: BP 156/78
--- NOTE | 2020-09-14 10:59 | NUR ---
ASSUMED PT CARE THIS AM. PT VSS, A&OX4. PT COOPERATIVE WITH STAFF, CALLS APPROPIRATLEY WHEN NEEDED. WOUND DRESSING TO BE CHANGED TODAY. WOUND VAC WORKING WELL AT 125. IV PATENT, ABX INFUSING. PT REPORTING HE IS STRUGGLING TO HAVE A BM. BLOOD SUGAR MANAGED WITH INSULIN PER EMAR.
[2020-09-14 14:57] VITALS: BP 138/74
[2020-09-14 19:37] VITALS: BP 118/62
[2020-09-15 06:10] LABS: HEMATOCRIT 21.7 % (42.0-52.0); HEMOGLOBIN 7.5 gm/dL (14.0-18.0); MCH 31.7 pg (26.0-34.0); MCHC 34.7 g/dL (28.0-37.0); MCV 91.4 fL (80.0-100.0); RBC 2.38 mil/uL (4.50-6.00); RDW 16.2 % (10.5-14.5); WBC 4.5 thou/uL (4.0-11.0)
[2020-09-15 06:23] LABS: CALCIUM 8.1 mg/dL (8.5-10.1); CREATININE 1.2 mg/dL (0.7-1.3); POTASSIUM 5.1 mmol/L (3.5-5.1)
[2020-09-15 07:13] VITALS: BP 144/67
[2020-09-15] MEDS ORDERED: HYDROCODON-ACE1 EAC7 PO (09:25)
--- NOTE | 2020-09-15 10:51 | NUR ---
PT ON SERVICE WITH [facility] FAXED REFERRAL FOR RESUMPTION OF CARE AT DISCHARGE SPOKE WITH [place] IN INTAKE THEY WILL RESUME CARE AND REFERRAL ALSO FAXED TO [facility] SPOKE WITH KENJI AND THEY WILL RESUME CARE AT DC.
[2020-09-15 11:03] VITALS: BP 144/67
--- NOTE | 2020-09-15 12:21 | NUR ---
PT DISCHARGING TODAY TO HOME WITH [facility] FAXED DC ORDERS/SUMMARY SPOKE [facility]CEIV[facility] AND WILL ARRANGE VISITS WITH PT AND SPOKE WITH KENJI FROM [facility] RECEIVED ORDERS AND WILL CALL PT TO ARRANGE VISIT.
[2020-09-15 14:58] VITALS: BP 141/66
--- NOTE | 2020-09-15 15:50 | NUR ---
ASSUMED PT CARE THIS AM. PT VSS, A&OX4. PT COMPLAINS OF PAIN MANAGED WELL WITH MEDS PER EMAR. BILATERAL LOWER EXTREMITY EDEMA. WOUND DRESSINGS TO BE CHANGED PRIOR TO PT DISCHARGING. IV PATENT, MEDS INFUSING. PT EATING WELL. WORKED WITH PHYSICAL THERAPY TODAY AND WALKED WITH THEM. WOUND VAC WOKRING AT 125. DRESSING ON HIP C/D/I. PT REFUSING Q2 TURNS.
== END 2020-09-15 18:18 | disposition home health service (06) | DRG 559 ==
LOC: ER 11:58 → EROBS 14:25 → 4W 14:25 → 4S 18:30 → 4W 09-13 05:50
PROVIDERS: Nurse Practitioner; Physician Assistant; ADMIT Hospitalist; ATTEND Hospitalist
PROC: 02HV33Z Insertion of Infusion Device into Superior Vena Cava, Percutaneous Approach (ICD-10-PCS; principal; 2020-09-13)
DX: T84.52XA Infection and inflammatory reaction due to internal left hip prosthesis, initial encounter (principal); E43 Unspecified severe protein-calorie malnutrition; L03.116 Cellulitis of left lower limb; L97.821 Non-pressure chronic ulcer of other part of left lower leg limited to breakdown of skin; M86.8X8 Other osteomyelitis, other site; L97.811 Non-pressure chronic ulcer of other part of right lower leg limited to breakdown of skin; L03.115 Cellulitis of right lower limb; K74.60 Unspecified cirrhosis of liver; I10 Essential (primary) hypertension; E78.5 Hyperlipidemia, unspecified; Z96.642 Presence of left artificial hip joint; K72.90 Hepatic failure, unspecified without coma; B19.20 Unspecified viral hepatitis C without hepatic coma; S80.822A Blister (nonthermal), left lower leg, initial encounter; S80.821A Blister (nonthermal), right lower leg, initial encounter; I87.8 Other specified disorders of veins; E11.69 Type 2 diabetes mellitus with other specified complication; D64.9 Anemia, unspecified; Y83.8 Other surgical procedures as the cause of abnormal reaction of the patient, or of later complication, without mention of misadventure at the time of the procedure; Z79.4 Long term (current) use of insulin; Z89.422 Acquired absence of other left toe(s); Z86.19 Personal history of other infectious and parasitic diseases; Z86.14 Personal history of Methicillin resistant Staphylococcus aureus infection; X58.XXXA Exposure to other specified factors, initial encounter; Y93.89 Activity, other specified; Y92.89 Other specified places as the place of occurrence of the external cause; Y99.8 Other external cause status
CPT/HCPCS: 10040; 10195

== ENCOUNTER → 2020-09-12 | Outpatient (CLI) | payer OTHER ==
[~2020-09-12] MED LIST changes: +MERREM1 GM IVPB; +VANCO 1 GR1 GM/250 M IVPB
== END ==
LOC: HYPER 08:22
PROVIDERS: ATTEND Emergency Medicine Emergency Medical Services
DX: T81.31XD Disruption of external operation (surgical) wound, not elsewhere classified, subsequent encounter (principal); E11.622 Type 2 diabetes mellitus with other skin ulcer; I87.332 Chronic venous hypertension (idiopathic) with ulcer and inflammation of left lower extremity; L97.822 Non-pressure chronic ulcer of other part of left lower leg with fat layer exposed; L97.811 Non-pressure chronic ulcer of other part of right lower leg limited to breakdown of skin; E11.621 Type 2 diabetes mellitus with foot ulcer; L89.610 Pressure ulcer of right heel, unstageable; L97.412 Non-pressure chronic ulcer of right heel and midfoot with fat layer exposed; L84 Corns and callosities; E11.65 Type 2 diabetes mellitus with hyperglycemia; E11.43 Type 2 diabetes mellitus with diabetic autonomic (poly)neuropathy; R60.0 Localized edema; E11.69 Type 2 diabetes mellitus with other specified complication; M86.9 Osteomyelitis, unspecified; K74.60 Unspecified cirrhosis of liver; Z79.4 Long term (current) use of insulin; Y83.8 Other surgical procedures as the cause of abnormal reaction of the patient, or of later complication, without mention of misadventure at the time of the procedure

== ENCOUNTER → 2020-09-23 | Outpatient (CLI) | payer OTHER | LOC: HYPER 09:51 | PROVIDERS: ATTEND Emergency Medicine Emergency Medical Services | DX: T81.31XD Disruption of external operation (surgical) wound, not elsewhere classified, subsequent encounter (principal); E11.622 Type 2 diabetes mellitus with other skin ulcer; I87.332 Chronic venous hypertension (idiopathic) with ulcer and inflammation of left lower extremity; L97.822 Non-pressure chronic ulcer of other part of left lower leg with fat layer exposed; L97.811 Non-pressure chronic ulcer of other part of right lower leg limited to breakdown of skin; E11.43 Type 2 diabetes mellitus with diabetic autonomic (poly)neuropathy; E11.65 Type 2 diabetes mellitus with hyperglycemia; E11.69 Type 2 diabetes mellitus with other specified complication; M86.9 Osteomyelitis, unspecified; L03.115 Cellulitis of right lower limb; R60.0 Localized edema; R21 Rash and other nonspecific skin eruption; Z79.4 Long term (current) use of insulin; Z79.82 Long term (current) use of aspirin; Y83.8 Other surgical procedures as the cause of abnormal reaction of the patient, or of later complication, without mention of misadventure at the time of the procedure ==

== ENCOUNTER 2020-09-28 09:48 | Emergency (ER) | payer OTHER ==
[~2020-09-28] VITALS: Ht 177.8 cm; Wt 81.7 kg
[2020-09-28 11:15] VITALS: BP 135/75
== END 2020-09-28 11:20 | disposition home or self-care (01) ==
LOC: ER 09:48
DX: T82.898A Other specified complication of vascular prosthetic devices, implants and grafts, initial encounter (principal); E11.9 Type 2 diabetes mellitus without complications; I10 Essential (primary) hypertension; E78.5 Hyperlipidemia, unspecified; Z98.890 Other specified postprocedural states; Z79.899 Other long term (current) drug therapy; Z86.14 Personal history of Methicillin resistant Staphylococcus aureus infection; Y92.89 Other specified places as the place of occurrence of the external cause

== ENCOUNTER → 2020-10-14 | Outpatient (CLI) | payer OTHER | LOC: HYPER 09:17 | PROVIDERS: ATTEND Emergency Medicine Emergency Medical Services | DX: T81.31XD Disruption of external operation (surgical) wound, not elsewhere classified, subsequent encounter (principal); I87.332 Chronic venous hypertension (idiopathic) with ulcer and inflammation of left lower extremity; L97.822 Non-pressure chronic ulcer of other part of left lower leg with fat layer exposed; L97.811 Non-pressure chronic ulcer of other part of right lower leg limited to breakdown of skin; E11.43 Type 2 diabetes mellitus with diabetic autonomic (poly)neuropathy; E11.65 Type 2 diabetes mellitus with hyperglycemia; E11.69 Type 2 diabetes mellitus with other specified complication; M86.9 Osteomyelitis, unspecified; R60.0 Localized edema; Z79.4 Long term (current) use of insulin; Y83.8 Other surgical procedures as the cause of abnormal reaction of the patient, or of later complication, without mention of misadventure at the time of the procedure ==

== ENCOUNTER → 2020-10-28 | Outpatient (CLI) | payer OTHER | LOC: HYPER 09:52 | PROVIDERS: ATTEND Emergency Medicine Emergency Medical Services | DX: T81.31XD Disruption of external operation (surgical) wound, not elsewhere classified, subsequent encounter (principal); I87.332 Chronic venous hypertension (idiopathic) with ulcer and inflammation of left lower extremity; L97.822 Non-pressure chronic ulcer of other part of left lower leg with fat layer exposed; L97.811 Non-pressure chronic ulcer of other part of right lower leg limited to breakdown of skin; L03.115 Cellulitis of right lower limb; E11.43 Type 2 diabetes mellitus with diabetic autonomic (poly)neuropathy; E11.65 Type 2 diabetes mellitus with hyperglycemia; E11.69 Type 2 diabetes mellitus with other specified complication; M86.9 Osteomyelitis, unspecified; R60.0 Localized edema; R21 Rash and other nonspecific skin eruption; Z79.4 Long term (current) use of insulin; Z79.82 Long term (current) use of aspirin; Y83.8 Other surgical procedures as the cause of abnormal reaction of the patient, or of later complication, without mention of misadventure at the time of the procedure ==

== ENCOUNTER 2020-11-21 11:54 | Inpatient (IN) | payer OTHER ==
[~2020-11-21] VITALS: Ht 177.8 cm; Wt 98.0 kg
[2020-11-21 11:55] VITALS: BP 141/88
[2020-11-21] MEDS ORDERED: CIPRO500 M1 PO (12:27)
[2020-11-21] MEDS ORDERED: ZYVOX600 MG PO (12:27)
[2020-11-21] MEDS ORDERED: MINOCYCLINE HC100 M2 PO (12:28)
[2020-11-21] MEDS ORDERED: GLIPIZIDE 10 MG10 MG PO (12:29)
[2020-11-21 13:03] LABS: PLATELET COUNT 69 thou/uL (150-400)
[2020-11-21 13:05] LABS: ABSOLUTE NEUTROPHILS 3.7 thou/uL (1.4-8.2); BASOPHILS 0.2 % (0.0-2.0); EOSINOPHILS 2.3 % (0.0-3.0); LYMPHOCYTES 14.8 % (24.0-44.0); MCH 32.5 pg (26.0-34.0); MCHC 36.8 g/dL (28.0-37.0); MCV 88.3 fL (80.0-100.0); MONOCYTES 9.7 % (1.0-8.0); RDW 16.8 % (10.5-14.5); WBC 5.1 thou/uL (4.0-11.0)
[2020-11-21 13:06] LABS: HEMATOCRIT 15.9 % (42.0-52.0)
[2020-11-21 13:09] LABS: HEMOGLOBIN 5.9 gm/dL (14.0-18.0)
[2020-11-21 13:11] LABS: URINE BILIRUBIN NEGATIVE (Negative); URINE BLOOD NEGATIVE (Negative); URINE CLARITY CLEAR; URINE COLOR YELLOW; URINE GLUCOSE-RANDOM* NEGATIVE (Negative); URINE KETONES NEGATIVE (Negative); URINE LEUKOCYTES-REFLEX NEGATIVE (Negative); URINE NITRITE-REFLEX NEGATIVE (Negative); URINE PROTEIN (DIPSTICK) NEGATIVE (Negative); URINE SPECIFIC GRAVITY 1.025 (1.005-1.035); URINE UROBILINOGEN 0.2 E.U./dl (0.2-1.0)
[2020-11-21 13:27] LABS: CALCIUM 8.7 mg/dL (8.5-10.1); CREATININE 1.5 mg/dL (0.7-1.3); POTASSIUM 4.2 mmol/L (3.5-5.1)
[2020-11-21 13:34] LABS: ALBUMIN 2.7 g/dL (3.4-5.0); DIRECT BILIRUBIN 0.2 mg/dL (<0.1-0.2); TOTAL BILIRUBIN 0.5 mg/dL (0.2-1.0); TOTAL PROTEIN 7.7 g/dL (6.4-8.2)
[2020-11-21 19:44] VITALS: BP 134/69
[2020-11-21] MEDS ORDERED: TRAMADOL 50 MG50 MG PO (21:13)
[2020-11-21 22:45] VITALS: BP 117/61
[2020-11-21 22:53] VITALS: BP 118/61
[2020-11-22] VITALS (7 sets, daily range): BP systolic 99–132; BP diastolic 56–74
[2020-11-22 05:12] LABS: ABSOLUTE NEUTROPHILS 2.4 thou/uL (1.4-8.2); BASOPHILS 0.4 % (0.0-2.0); MCH 31.6 pg (26.0-34.0); PLATELET COUNT 63 thou/uL (150-400); RBC 1.63 mil/uL (4.50-6.00); WBC 3.9 thou/uL (4.0-11.0)
[2020-11-22 05:14] LABS: EOSINOPHILS 3.9 % (0.0-3.0); MCHC 35.9 g/dL (28.0-37.0); POLYS 61.7 % (36.0-66.0)
[2020-11-22 05:20] LABS: HEMATOCRIT 14.4 % (42.0-52.0); HEMOGLOBIN 5.2 gm/dL (14.0-18.0)
[2020-11-22 05:25] LABS: CALCIUM 7.9 mg/dL (8.5-10.1); CREATININE 1.5 mg/dL (0.7-1.3); POTASSIUM 4.7 mmol/L (3.5-5.1)
[2020-11-22 08:53] LABS: ABSOLUTE RETIC COUNT 0.0023 10^6/uL; OBSERVED RETIC COUNT 0.14 % (0.6-2.6)
[2020-11-22 11:05] LABS: INR 1.2; PROTIME 12.7 Seconds (9.3-11.4)
[2020-11-22 13:01] LABS: HEMOGLOBIN 6.3 gm/dL (14.0-18.0)
[2020-11-22 13:05] LABS: % SATURATION 100 % (20-39); IRON 174 ug/dL (65-175); TIBC 174 ug/dL (250-450)
[2020-11-23 06:14] LABS: HEMOGLOBIN 6.5 gm/dL (14.0-18.0); MCH 30.4 pg (26.0-34.0); PLATELET COUNT 56 thou/uL (150-400); RBC 2.13 mil/uL (4.50-6.00)
[2020-11-23 06:16] LABS: ABSOLUTE NEUTROPHILS 3.7 thou/uL (1.4-8.2); BASOPHILS 0.2 % (0.0-2.0); EOSINOPHILS 3.1 % (0.0-3.0); LYMPHOCYTES 14.4 % (24.0-44.0); MCHC 35.6 g/dL (28.0-37.0); MCV 85.4 fL (80.0-100.0); MONOCYTES 13.7 % (1.0-8.0); POLYS 68.6 % (36.0-66.0); WBC 5.4 thou/uL (4.0-11.0)
[2020-11-23 06:27] LABS: INR 1.1; PROTIME 12.6 Seconds (9.3-11.4)
[2020-11-23 06:46] LABS: HEMATOCRIT 18.2 % (42.0-52.0)
[2020-11-23 08:23] VITALS: BP 112/59
[2020-11-23 10:29] VITALS: BP 109/67
[2020-11-23 11:05] VITALS: BP 115/73; BP 119/59
[2020-11-23 13:42] VITALS: BP 115/73
[2020-11-23 14:07] LABS: HEMATOCRIT 21.1 % (42.0-52.0); HEMOGLOBIN 7.3 gm/dL (14.0-18.0)
[2020-11-23 16:36] VITALS: BP 105/58
--- NOTE | 2020-11-23 18:04 | HC ---
[facility] [place] [address] CONSULTATION Name: ROEL GIPSON Room #: 3- ADM IN M.R.#: [id number] Admission: 11/21/20 Attend Phys: Dontrell Joyce MD Discharge: Date of : 58 Report #: [id number] THIS REPORT FOR: cc: [facility] - Clinic physician unknown [facility] - Clinic physician unknown Sanjiv Witt MD ~ DATE OF SERVICE: 11/22/2020 CHIEF COMPLAINT: Infection in left hip. HISTORY OF PRESENT ILLNESS: This is a 60-year-old male patient with whom I am familiar, who had a left hip fracture and has had subsequent infections. He has had multiple incision and drainage procedures and ultimately removal of hardware and the spacer. The last time he was debrided, the spacers and all hardware were removed and the wound was left open. He has been doing relatively well with wound VAC; however, has developed increasing pain, redness and drainage from the hip and has been admitted for further evaluation and treatment. The patient complains of some swelling in his legs as well. PAST MEDICAL HISTORY: Positive for history of type 2 diabetes mellitus, cirrhosis, hypertension, cellulitis, iron deficiency anemia, history of GI bleeding, history of ascites, esophageal varices, transaminitis. SOCIAL HISTORY: Negative for alcohol or tobacco use. MEDICATIONS: Include ammonium lactate, ferrous sulfate, glucagon, hydrocodone, pantoprazole, Zosyn, propranolol, tramadol, linezolid, minocycline. ALLERGIES: No known drug allergies. FAMILY HISTORY: Noncontributory. REVIEW OF SYSTEMS: CONSTITUTIONAL: The patient denies fever, chills or weight loss. NEUROLOGICAL: The patient denies focal weakness, numbness or tingling. EYES: The patient denies visual changes, redness, or drainage. ENT: The patient denies earache, nasal drainage, sore throat. CARDIOVASCULAR: The patient denies chest pain, palpitations or diaphoresis. PULMONARY: The patient denies cough or shortness of breath. GASTROINTESTINAL: The patient denies nausea, diarrhea or abdominal pain. ORTHOPEDIC: The patient has pain, swelling, redness and drainage from his left hip area. He has swelling and some weepiness to his lower legs. Other systems in a 14-point review of systems are negative. PHYSICAL EXAMINATION: [address] [address] CONSULTATION Name: ROEL GIPSON Room #: 3 ADM IN M.R.#: [id number] Admission: 11/21/20 Attend Phys: Dontrell Joyce MD Discharge: Date of : 58 Report #: [id number] VITAL SIGNS: Include temperature 36.7, pulse 86, respiratory rate 16, blood pressure 108/57. GENERAL: This is a chronically ill-appearing male patient who appears to be in mild discomfort. HEENT: Head normocephalic. Nose and throat clear. NECK: Supple. LUNGS: Clear. ABDOMEN: Distended, is equivocal as to whether he has fluid wave present. He is nontender. Pelvic region demonstrates a surgical wound to the left hip. There is a moderate amount of adherent fibrin to the granulation tissue inside. I am able to palpate some spiculated bone posteriorly in the wound bed. EXTREMITIES: Lower extremities demonstrate he has some venous dermatitis as well as a few blisters and some weepiness. Otherwise, there is no overt cellulitis. NEUROLOGIC: The patient is alert and oriented. LABORATORY DATA: Include hemoglobin 6.3, hematocrit of 18.0. Sodium 136, potassium 4.7, chloride 105, CO2 of 22, BUN 29, creatinine 1.5. CLINICAL IMPRESSION: 1. Wound infection involving left hip with clinical suggestion of underlying osteomyelitis. 2. Venous dermatitis and ulcerations to both lower extremities. 3. Mild volume overload. 4. Acute renal failure. 5. Blood loss with history of normocytic anemia. 6. Type 2 diabetes mellitus. 7. 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 RECOMMENDATIONS: At this point in time, we recommend quarter strength Dakin's moist gauze packing to the left hip. I suspect he will need additional bony debridement such as a Girdlestone type procedure. We will consider a wound VAC again in the future, but due to the infection right now, I do not think that would be most prudent. We will recommend AmLactin, Xeroform, ABD, Kerlix, Steven to both lower extremities and PRAFO boots for pressure prophylaxis of his heels. Continuation of current medications. Orthopedic consultation and Infectious Disease consultation will be appropriate as well. I appreciate being asked to see him in consultation. <ELECTRONICALLY SIGNED> By: Sanjiv Witt MD 11/23/20 1804 [id number] Sanjiv Witt MD /nt
[2020-11-23 19:15] VITALS: BP 115/64
--- NOTE | 2020-11-23 22:02 | HC ---
[facility] [place] [address] CONSULTATION Name: ROEL GIPSON Room #: 3- ADM IN M.Sergio.#: [id number] Admission: 11/21/20 Attend Phys: Dontrell Joyce MD Discharge: Date of : 58 Report #: [id number] THIS REPORT FOR: cc: [facility] - Clinic physician unknown [facility] - Clinic physician unknown Kan Berrios MD ~ DATE OF SERVICE: 11/22/2020 INFECTIOUS DISEASE CONSULTATION REASON FOR CONSULTATION: I was asked to evaluate concerning continued drainage from his left hip wound following a Girdlestone procedure. HISTORY OF PRESENT ILLNESS: The patient is a 60-year-old who has had a complicated left hip infection following fracture and hemiarthroplasty. He had polymicrobial infection and has required Girdlestone procedure. His last cultures and debridement was in August. He has grown MRSA, pseudomonas, Acinetobacter, VRE, yeast. Received a prolonged course of IV therapy. He has had multiple debridements. Most recent one from Dr. Negro. He is now on oral antibiotic suppression and has had a wound VAC to the left hip incisional wound with a moderate amount of drainage. This was recently discontinued and he was doing packing. He comes in now after home health nursing felt that there was more purulent drainage. No fever, chills or sweats. Pain is under control. No change in his cirrhosis. He does have peripheral edema and chronic venous stasis disease. He had previous ascites with paracentesis. He has not been a transplant candidate due to his left hip infection. ALLERGIES: None known. MEDICATIONS: As noted on his MAR including Zyvox, minocycline and ciprofloxacin. REVIEW OF SYSTEMS: A 14-point review was negative other than what has been described above. PAST MEDICAL HISTORY: Hypertension, cirrhosis, hepatitis C, esophageal varices, hepatic encephalopathy, left second toe amputation, left hip hemiarthroplasty following a displaced femoral neck fracture, multiple I and Ds and subsequent Girdlestone procedure. FAMILY HISTORY: No reported tuberculosis. SOCIAL HISTORY: Nonsmoker. Past alcohol use. No further reported issues. PHYSICAL EXAMINATION: [facility] [address] [place] [address] CONSULTATION Name: ROEL GIPSON Room #: 443- ADM IN M.R.#: [id number] Admission: 11/21/20 Attend Phys: Dontrell Joyce MD Discharge: Date of : 58 Report #: [id number] VITAL SIGNS: Afebrile and hemodynamically stable. GENERAL: He is alert and cooperative and pleasant, in no acute distress. SKIN: Nonicteric, venous stasis dermatitis both lower extremities with shallow wounds present. No palpable adenopathy. Left hip incisional wound with granulation tissue. This wound was deep and femur was palpable in the deep aspect of the wound. EYES: Without scleral icterus. MOUTH: Without mucositis. NECK: Supple. LUNGS: Clear. HEART: Regular, without murmur, gallop or rub. ABDOMEN: Mild distention. Liver was palpable. NEUROLOGIC: Cranial nerves intact. Strength in upper and lower extremities within normal limits. External genitalia without lesion. Spine was nontender. Mood without anxiety or depression. LABORATORY STUDIES: Reviewed. Microbiology reviewed. Most notable hemoglobin 6.3, white count 3.9, and platelet count 63,000. Creatinine is 1.5. Liver function test is normal. His platelet count has dropped since his previous evaluation in September. IMPRESSION: 1. Chronic left hip hemiarthroplasty, prosthetic joint infection with polymicrobial growth now with Girdlestone procedure and persistent wound. Moderate amount of drainage noted. Not having any fevers or leukocytosis. Some of his hematologic changes may be related to the Zyvox. 2. Lower extremity venous stasis disease. 3. Hepatitis C. 4. Diabetes. 5. Cirrhosis. 6. Anemia. RECOMMENDATIONS: We will continue IV antibiotic program, but look at getting him off Zyvox for now. We will see if his platelet count increases. Continue with edema control. Continue with wound care. <ELECTRONICALLY SIGNED> By: Kan Berrios MD 11/23/20 [id number] [id number] Kan Berrios MD /nt
[2020-11-24 03:53] VITALS: BP 115/62
[2020-11-24 05:23] LABS: HEMOGLOBIN 6.9 gm/dL (14.0-18.0)
[2020-11-24 05:26] LABS: MCH 30.3 pg (26.0-34.0); MCHC 35.2 g/dL (28.0-37.0); MCV 86.1 fL (80.0-100.0); RBC 2.29 mil/uL (4.50-6.00); RDW 16.3 % (10.5-14.5); WBC 4.5 thou/uL (4.0-11.0)
[2020-11-24 05:35] LABS: HEMATOCRIT 19.7 % (42.0-52.0)
[2020-11-24 07:46] VITALS: BP 113/65
[2020-11-24 09:34] VITALS: BP 113/65
[2020-11-24 12:29] VITALS: BP 116/61; BP 120/72; BP 127/71; BP 131/73; BP 135/75
[2020-11-24 15:49] LABS: HEMATOCRIT 22.5 % (42.0-52.0); HEMOGLOBIN 7.7 gm/dL (14.0-18.0)
[2020-11-24 16:52] VITALS: BP 114/66
[2020-11-24 19:28] VITALS: BP 113/65
== END 2020-11-24 19:30 | disposition home health service (06) | DRG 602 ==
LOC: ER 11:54 → 4S 14:54 → EROBS 14:54 → 4S 22:39
PROVIDERS: Hospitalist; Nurse Practitioner; ADMIT Internal Medicine; ATTEND Internal Medicine
PROC: 30233N1 Transfusion of Nonautologous Red Blood Cells into Peripheral Vein, Percutaneous Approach (ICD-10-PCS; principal; 2020-11-22)
DX: L03.116 Cellulitis of left lower limb (principal); E43 Unspecified severe protein-calorie malnutrition; N17.9 Acute kidney failure, unspecified; D62 Acute posthemorrhagic anemia; L97.129 Non-pressure chronic ulcer of left thigh with unspecified severity; I85.00 Esophageal varices without bleeding; R18.8 Other ascites; M86.68 Other chronic osteomyelitis, other site; L03.115 Cellulitis of right lower limb; K74.60 Unspecified cirrhosis of liver; E78.5 Hyperlipidemia, unspecified; S71.102A Unspecified open wound, left thigh, initial encounter; S71.101A Unspecified open wound, right thigh, initial encounter; Z96.642 Presence of left artificial hip joint; D69.6 Thrombocytopenia, unspecified; L30.8 Other specified dermatitis; I12.9 Hypertensive chronic kidney disease with stage 1 through stage 4 chronic kidney disease, or unspecified chronic kidney disease; K72.90 Hepatic failure, unspecified without coma; E11.69 Type 2 diabetes mellitus with other specified complication; N18.9 Chronic kidney disease, unspecified; Z20.822 Contact with and (suspected) exposure to COVID-19; Z86.16 Personal history of COVID-19; Z79.4 Long term (current) use of insulin; Z89.422 Acquired absence of other left toe(s); Z86.19 Personal history of other infectious and parasitic diseases; Z86.14 Personal history of Methicillin resistant Staphylococcus aureus infection; X58.XXXA Exposure to other specified factors, initial encounter; Y93.89 Activity, other specified; Y92.89 Other specified places as the place of occurrence of the external cause; Y99.8 Other external cause status; Z68.31 Body mass index [BMI] 31.0-31.9, adult
CPT/HCPCS: 10195